=== PATIENT | female | born 1940 | race Caucasian/White ===

== ENCOUNTER → 2017-03-22 | Outpatient (CLI) | payer MEDICARE ==
--- NOTE | 2017-03-24 14:29 | MM ---
Reason for exam: screening (asymptomatic). Last mammogram was performed 1 year and 1 month ago. History: Patient is postmenopausal and has history of endometrial cancer at age 44. Took estrogen for 15 years beginning at age 44. Physical Findings: A clinical breast exam by your physician is recommended on an annual basis and results should be correlated with mammographic findings. MG 3D Screening Mammo W/Cad Bilateral CC and MLO view(s) were taken. Prior study comparison: February 22, 2016, bilateral MG 3d screening mammo w/cad. February 16, 2015, bilateral MG screening mammo w CAD. There are scattered fibroglandular densities. No significant changes when compared with prior studies. ASSESSMENT: Benign, BI-RAD 2 RECOMMENDATION: Routine screening mammogram of both breasts in 1 year.
== END | disposition home or self-care (01) ==
LOC: RADMAMWWP 10:17
PROVIDERS: ATTEND Internal Medicine
DX: Z12.31 Encounter for screening mammogram for malignant neoplasm of breast (principal)
CPT/HCPCS: 77063; G0202

== ENCOUNTER → 2017-03-22 | Outpatient (CLI) | payer MEDICARE ==
--- NOTE | 2017-03-22 21:42 | WWHP ---
DATE OF SERVICE: 03/22/[address] Gerard her primary care physician. CHIEF COMPLAINT: Patient is here for her routine gynecologic exam and mammogram. HPI: This is a 77-year-old, G2, P2 with an LMP of 1981. She is status post PRECIOUS for benign reasons. She had a later BSO which was also benign. The patient previously saw Dr. Portillo for her gynecologic care. It has been more than 2 years since her last exam. The patient is complaining of some vulvar pruritus. She is otherwise without complaints. PAST MEDICAL HISTORY: Chronic hypertension, asthma, cirrhosis, and osteopenia. Dr. Gerard is her primary care physician. MEDICATIONS: Torsemide 20 mg daily. Aspirin 81 mg daily. Proventil inhaler p.r.n. ALLERGIES: No known drug allergies. 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 This was done in 2013 and also include a splenectomy. Also history of cystocele and rectocele repairs in about 1999, colonoscopy x4 and her most recent was done in 2013. Past OB history: 2 vaginal deliveries. 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 She did use hormone replacement therapy for number of years, but discontinued this in 1999. She has no history of STDs. SOCIAL HISTORY: She denies tobacco, alcohol, and drug use. She has been since 1961 and is retired. FAMILY HISTORY: Grandmother had cancer, but she is uncertain of the type. Father had CHF and diabetes. Maternal grandfather had diabetes. REVIEW OF SYSTEMS: She has lost about 28 pounds over the last year. This was done and this has been done through [employer]. She denies respiratory or cardiac problems. GI: She has had problems with chronic constipation. She denies maltreatment or falling. : She denies any significant problems with urinary leakage. PHYSICAL EXAM: Blood pressure 170/70. Height 5 feet 0 inches. Weight 185 pounds. Temperature 96.0, pulse 79. This a well-developed, heavyset white female who is alert and oriented x3 in no acute distress. HEENT is within normal limits. NECK: Supple without mass or thyromegaly. CHEST AND LUNGS: Clear to auscultation. HEART: Regular rate and rhythm. Breasts are without mass or discharge. Axillary exam is negative for adenopathy. BACK: Negative for CVA tenderness. ABDOMEN: Soft, nontender, without palpable masses. PELVIC EXAM: External genitalia reveals mild generalized erythema that was slightly beyond to be labia majora. There are no focal lesions and no ulceration. There is also mild to moderate atrophy. Vagina reveals moderate to severe atrophy in the vagina somewhat shortened with depth of approximately 10 to 12 cm. There are no lesions and there is no evidence of prolapse. Bimanual exam is negative for mass or tenderness. Rectovaginal exam is negative for mass or tenderness and is negative for occult blood. EXTREMITIES: Nontender. IMPRESSION: 1. A 77-year-old menopausal female, status post total abdominal hysterectomy and later BSO for benign reasons. 2. Vulvar pruritus with nonspecific vulvitis. I doubt this is directly related to psoriasis, but it is possible. PLAN: 1. Pap smears have been discontinued. 2. Self-breast examination was discussed. 3. Mammogram was done today. 4. Kenalog 0.1% cream b.i.d. p.r.n. She was also instructed to avoid over washing and use smaller amounts of soap to this area. If she continues to have symptoms she will follow up with her stonehand who she sees for her psoriasis. 5. She does get flu shots in the fall. 6. Osteoporosis prevention was discussed. We will plan on repeating bone density testing next year. 7. She will follow up with Dr. Gerard regarding her elevated blood pressure. 8. She will return in one year. OUMAR
== END | disposition home or self-care (01) ==
LOC: WWCWWP 10:13
PROVIDERS: ATTEND Obstetrics & Gynecology
DX: Z53.9 Procedure and treatment not carried out, unspecified reason (principal)

== ENCOUNTER → 2018-08-04 | Outpatient (CLI) | payer MEDICARE ==
--- NOTE | 2018-08-05 10:38 | MR ---
EXAMINATION TYPE: MR brain and iac wo/w con DATE OF EXAM: 08/04/2018 COMPARISON: None HISTORY: tinnitus/ hearing loss, dizzy TECHNIQUE: Multiplanar, multisequence images of the brain and brainstem is performed without and with IV contras t, utilizing 8 mL intravenous Gadavist . FINDINGS: Diffusion weighted images demonstrate no evidence of a recent infarct or other diffusion ab normality. The ventricular system and cisternal spaces are normal in size and appearance. The brain volume is a ge appropriate. Midline structures demonstrate normal morphology. The craniocervical junction appears within normal limits. Post contrast images demonstrate no abnormal enhancement. The dural venous sinuses appear pa tent. Changes of chronic sinusitis are noted. There is no cerebellopontine angle mass. No pathologic enhancement nerve complex. Changes of mild jermaine ateral chronic mastoiditis. There is confluent and numerous focal areas of abnormal signal scattered throughout the white matter bilaterally. Findings are nonspecific but most typical remote microvascular ischemia. Hyperostosis of the calvarium noted. There is a tiny venous angioma incidentally noted within the left parietal lobe IMPRESSION: 1. Degenerative and nonspecific white matter changes most typical of remote microvascular ischemia. 2. No evidence of cerebellopontine angle mass or acoustic schwannoma. 3. Changes of chronic sinusitis. 4. Mild bilateral chronic mastoiditis greater on the left.
== END | disposition home or self-care (01) ==
LOC: RADMRIMAIN 13:10
PROVIDERS: ATTEND Otolaryngology
DX: H70.13 Chronic mastoiditis, bilateral (principal); R90.89 Other abnormal findings on diagnostic imaging of central nervous system; Z86.73 Personal history of transient ischemic attack (TIA), and cerebral infarction without residual deficits
CPT/HCPCS: 82565; 84520; 70553; 36415; A9581

== ENCOUNTER → 2018-08-14 | Outpatient (CLI) | payer MEDICARE ==
[2018-08-14 10:00] VITALS: BP 131/80; PULSE 72; TEMP 97.8; BMI 36.1
--- NOTE | 2018-08-14 10:39 | P.HPOB ---
History of Present Illness H&P Date: 08/14/18 Chief Complaint: The patient is here for her routine gynecologic exam and mammogram. This is a 78-year-old G2 PII within LMP of 1981. She is status post PRECIOUS and later BSO for benign reasons. The patient is without gynecologic complaints. 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 Review of Systems Weight has been stable. She denies respiratory or cardiac problems. SUNNY: occasional constipation. She denies maltreatment or problems with falling. : she denies any significant problems with urinary leakage, but occasionally has to get to the bathroom right away. Past Medical History Past Medical History: Asthma, Hypertension, Liver Disease (Cirrhosis), Skin Disorder (Psoriasis) Additional Past Medical History / Comment(s): Psoriasis and She is status post PRECIOUS and later BS oh. She did use HRT for several years and this was discontinued in 1999. History of Any Multi-Drug Resistant Organisms: None Reported Past Surgical History: Appendectomy, Hysterectomy (PRECIOUS 1981, BSO 1983) Additional Past Surgical History / Comment(s): Cystocele and rectocele repairs in 1999. 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 Colonoscopy 2013 (4th). Past Psychological History: No Psychological Hx Reported Smoking Status: Never smoker Past Alcohol Use History: Rare (2 per year) Past Drug Use History: None Reported Additional History: She has been since 1961. Her has dementia. She is retired. - Past Family History Father Family Medical History: Congestive Heart Failure (CHF), Diabetes Mellitus Mother Family Medical History: No Reported History Additional Family Medical History / Comment(s): Maternal grandfather had diabetes. Medications and Allergies Home Medications Medication Instructions Recorded Confirmed Type Albuterol Sulfate [Proventil Hfa] 1 - 2 puff INHALATION DAILY PRN 08/22/1408/14 History Allopurinol 300 mg PO QAM 08/22/14 08/14/18 History Aspirin 81 mg PO DAILY 08/22/14 08/14/18 History Fluticasone/Salmeterol [Advair Hfa 2 puff INHALATION HS PRN 08/22/14 08/14/18 History 115-21 Mcg Inhaler] Torsemide 20 mg PO QAM 08/22/14 08/14/18 History Allergies Allergy/AdvReac Type Severity Reaction Status Date / Time adhesive Allergy Rash/Hives Verified 08/14/18 09:52 atorvastatin calcium Allergy Nausea & Verified 08/14/18 09:52 [From Lipitor] Vomiting & Diarrhea Exam Vital Signs Temp Pulse BP 08/14/18 09:55 97.8 F 72 131/80 Intake and Output 08/13/18 08/14/18 08/14/18 22:59 06:59 14:59 Other: Weight 83.915 kg Height 5'0", BMI 36.1. This is a well-developed well-nourished white female who is alert and oriented times 3 in no acute distress. HEENT: Within normal limits. NECK: Supple without mass or thyromegaly. CHEST AND LUNGS: Clear to auscultation. HEART: Regular rate and rhythm. BREASTS: Are without mass or discharge. AXILLARY EXAM: Negative for adenopathy. BACK: Negative for CVA tenderness. ABDOMEN: Soft, nontender, without palpable masses. PELVIC EXAM: there is an area of psoriasis on the right minds pubis measuring approximately 3 cm in diameter. External genitalia appears normal with moderate atrophy. Vagina appears normal with moderate atrophy. There is no evidence of prolapse. Bimanual examination is negative for mass or tenderness. RECTAL EXAM: Rectovaginal exam is negative for mass or tenderness and is negative for occult blood. EXTREMITIES: Nontender. IMPRESSION: 1. 78-year-old menopausal female status post PRECIOUS and later BSO for benign reasons with normal gynecologic exam. 2. History of osteopenia. PLAN: 1. Pap smears have been discontinued. 2. Self breast awareness was discussed with the patient. 3. Screening mammogram will be done today. 4. Osteoporosis prevention was discussed. Bone density screening will be done today. 5. She has received her flu shot recently. 6. She will return in one year.
--- NOTE | 2018-08-14 12:10 | BD ---
EXAMINATION TYPE: Axial Bone Density DATE OF EXAM: 08/14/2018 COMPARISON: 12.03.2013 CLINICAL HISTORY: 78 YR OLD FEMALE....ICD-10 CODE: Z78.0 POST MENOPAUSE W/O HRT Height: 59.2 Weight: 184 FRAX RISK QUESTIONS: Glucocorticoids (More than 3mos): YES (Ex: prednisone, prednisolone, methylprednisolone, dexamethasone, and hydrocortisone). HIStory of Fracture in Adulthood: YES Secondary Osteoporosis: YES 3. Menopause before 45: YES RISK FACTORS HISTORY OF: Diet low in dairy products/other sources of calcium: YES...NO MILK Postmenopausal woman: YES, TOTAL HYST AT AGE 44 MEDICATIONS: Prednisone or other steroids: ASTHMA INHALERS, PRN How Long: ON AND OFF FOR YRS... Additional Medications: ANTIVERT,REFLUX MEDS,PAIN MEDS NSAIDS, Additional History: ARTHRITIS, VERTIGO,ASTHMA EXAM MEASUREMENTS: Bone mineral densitometry was performed using the [employer] System. Bone mineral density as measured about the Lumbar spine is: ----- L1-L4(G/cm2): 1.415 T Score Values are as follows: ----- L1: -0.4 ----- L2: 1.7 ----- L3: 3.4 ----- L4: 2.6 ----- L1-L4: 2.0 Bone mineral density has: Increased 16.2% since study of: 12.03.2013 Bone mineral density about the R hip (g/cm2): 0.763 Bone mineral density about the L hip (g/cm2): 0.789 T Score values are as follows: -----R Neck: -1.9 -----L Neck: -2.4 -----R Total: -1.9 -----L Total: -1.7 Bone mineral density has: Decreased -13.4% since study of: 12.03.2013 FRAX%s: THERE IS A 15.7% CHANCE FOR A MAJOR OSTEOPOROTIC FX AND A 4.8% OF HIP FX....PROBABILITY OF FX IN 10 YRS TIME IMPRESSION: Osteopenia (T Score between -2.5 and -1). There is slightly increased risk of fracture and the patient may be considered for treatment. Re-Screen 2-5 years. NOTE: T-SCORE=SD OF THE YOUNG ADULT MEAN.
--- NOTE | 2018-08-16 09:31 | MM ---
Reason for exam: screening (asymptomatic). Last mammogram was performed 1 year and 5 months ago. History: Patient is postmenopausal and has history of endometrial cancer at age 44. Took estrogen for 15 years beginning at age 44. Physical Findings: A clinical breast exam by your physician is recommended on an annual basis and results should be correlated with mammographic findings. MG 3D Screening Mammo W/Cad Bilateral CC and MLO view(s) were taken. Prior study comparison: March 22, 2017, bilateral MG 3d screening mammo w/cad. February 22, 2016, bilateral MG 3d screening mammo w/cad. There are scattered fibroglandular densities. Focal asymmetry in the left breast, stable. No significant changes when compared with prior studies. ASSESSMENT: Benign, BI-RAD 2 RECOMMENDATION: Routine screening mammogram of both breasts in 1 year.
== END | disposition home or self-care (01) ==
LOC: WWCWWP 09:18
PROVIDERS: ATTEND Obstetrics & Gynecology
DX: Z12.31 Encounter for screening mammogram for malignant neoplasm of breast (principal); M85.80 Other specified disorders of bone density and structure, unspecified site; Z78.0 Asymptomatic menopausal state
CPT/HCPCS: 77063; 77067; 77080

== ENCOUNTER → 2021-07-28 | Outpatient (CLI) | payer MEDICARE ==
[~2021-07-28] MED LIST: DOBUTamine DRIP for NUC MED 500 MG in DEXTROSE/WATER 1 250ML.BAG IV PRN
--- NOTE | 2021-07-28 14:00 | ECHOS ---
STRESS ECHOCARDIOGRAM INDICATIONS: Chest pain. BASELINE HEART RATE: 87 BASELINE BLOOD PRESSURE: 120/58 MAXIMUM HEART RATE: 128 MAXIMUM BLOOD PRESSURE: 180/38 85% MPHR: 120 100% MPHR: 141 METS: NA MAXIMUM STAGE REACHED: 2 TOTAL EXERCISE TIME: 6:35 infusion time CLINICAL INFORMATION: STRESS DATA: Pretesting physical examination showed a heart rate of 87, pressure 120/85 mmHg. Baseline EKG showed sinus mechanism. Dobutamine infusion at a dose of 10 mcg/kg per minute was started and increased to 20 mcg/kg per minute per protocol. Max heart rate was 128, which is about 91% of maximum predicted heart rate. Maximum blood pressure was 180/38 mmHg. Clinically the patient did not have any symptoms. The EKG did not show any significant ST or T-wave abnormalities concerning for ischemia. Analysis and echocardiogram images from parasternal long axis view, parasternal short axis view, apical 4-chamber and apical 2-chamber views were obtained as the baseline images, at low-dose dobutamine infusion, at the peak of the heart rate as well as on recovery. The echocardiogram images showed overall good augmentation in the left ventricular systolic function without any evidence of wall motion abnormalities concerning for ischemia. CONCLUSION: 1. Normal EKG in response to dobutamine. 2. Normal echocardiogram in response to dobutamine. MMODL / IJN: [id number] /
== END | disposition home or self-care (01) ==
LOC: RADNMMAIN 09:49
PROVIDERS: ATTEND Internal Medicine
DX: R07.9 Chest pain, unspecified (principal)
CPT/HCPCS: 93351

== ENCOUNTER → 2022-02-01 | Outpatient (CLI) | payer MEDICARE ==
--- NOTE | 2022-02-02 06:27 | MR ---
EXAMINATION TYPE: MR knee RT wo con DATE OF EXAM: 02/01/2022 COMPARISON: None. HISTORY: Rt knee pain, swelling, internal derangement TECHNIQUE: Multiplanar, multisequence imaging of the right knee is performed without IV contrast. FINDINGS: MEDIAL MENISCUS: Truncation posterior horn with abnormal signal consistent with full-thickness tear. LATERAL MENISCUS: Lateral extrusion lateral meniscus on coronal images Marked truncated appearance an terior horn with abnormal signal extending towards central body. CRUCIATE LIGAMENTS: The posterior cruciate ligament is intact and unremarkable. Anterior cruciate lig ament appears thinned but intact sagittal image 18. COLLATERAL LIGAMENTS: The medial collateral ligament and lateral collateral ligament complex are inta ct. Mild fluid signal surrounds the medial collateral ligament. EXTENSOR MECHANISM: Visualized quadriceps and patellar tendons are intact. EFFUSION: No significant suprapatellar joint effusion. POPLITEAL CYST: There is small size popliteal/iqbal cyst sagittal image 13. TRICOMPARTMENT SPACES: Moderate to severe tricompartment spurring and joint space loss. CARTILAGE: Significant chondromalacia patella with full-thickness cartilaginous loss along the medical imaging technologist ior patellar pole. Marked cartilaginous loss including full-thickness defects lateral tibiofemoral co mpartment. BONE MARROW SIGNAL: Areas of reactive diminished T1 and increased T2 signal seen at levels of full-th ickness cartilaginous lateral tibial femoral compartment and full-thickness chondromalacia patella al august the posterior aspect of the patellar pole. OTHER: Posterior fabella suspected sagittal image 16. IMPRESSION: 1. Fairly advanced tricompartment degenerative changes as detailed above. 2. Full-thickness tear anterior horn lateral meniscus extending into central body. 3. Full-thickness oblique tear posterior horn medial meniscus. 4. Small popliteal cyst. 5. Mild MCL sprain injury.
== END | disposition home or self-care (01) ==
LOC: RADMRIMAIN 15:18
PROVIDERS: ATTEND Internal Medicine Rheumatology
DX: S83.411A Sprain of medial collateral ligament of right knee, initial encounter (principal); S83.281A Other tear of lateral meniscus, current injury, right knee, initial encounter; M71.21 Synovial cyst of popliteal space [Baker], right knee; X58.XXXA Exposure to other specified factors, initial encounter

== ENCOUNTER → 2022-05-25 | Outpatient (CLI) | payer MEDICARE ==
[2022-05-25 10:34] VITALS: BP 144/89; PULSE 98; RESP 18; TEMP 98.4
--- NOTE | 2022-05-25 11:45 | P.HPOB ---
History of Present Illness H&P Date: 05/25/22 Chief Complaint: The patient is here for her routine gynecologic exam. This is an 82-year-old with an LMP of 1981. She is status post PRECIOUS and later BSO for benign reasons. The patient is without gynecologic complaints. Review of Systems The patient has lost about 9 pounds over the past 4 years. She denies respiratory, cardiac, or GI problems. Past Medical History Past Medical History: Asthma, Hypertension, Liver Disease, Skin Disorder Additional Past Medical History / Comment(s): Psoriasis. 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 History of Any Multi-Drug Resistant Organisms: None Reported Past Surgical History: Appendectomy, Hysterectomy Additional Past Surgical History / Comment(s): PRECIOUS 1981, BSO in 1983. Cystocele and rectocele repairs in 1999. 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 Colonoscopy 2014 (4th). Past Psychological History: No Psychological Hx Reported Smoking Status: Never smoker Past Alcohol Use History: Rare (0-1 per year) Past Drug Use History: None Reported Additional History: She has been a since 2019. She is retired. She is not sexually active. - Past Family History Mother Additional Family Medical History / Comment(s): FROM A "BLOOD CLOT" Father Family Medical History: Congestive Heart Failure (CHF), Diabetes Mellitus Medications and Allergies Home Medications Medication Instructions Recorded Confirmed Type Albuterol Sulfate [Proventil Hfa] 1 - 2 puff INHALATION DAILY PRN 08/22/14 05/25/22 History Aspirin 81 mg PO DAILY 08/22/14 05/25/22 History Torsemide 20 mg PO QAM 08/22/14 05/25/22 History allopurinoL [Allopurinol] 300 mg PO QAM 08/22/14 05/25/22 History Triamcinolone 0.1% Lotion [Kenalog 1 applic TOPICAL BID PRN #30 g 08/22/18 05/25/22 Rx 0.1% Lotion] Allergies Allergy/AdvReac Type Severity Reaction Status Date / Time adhesive Allergy Rash/Hives Verified 05/25/22 10:28 atorvastatin calcium Allergy Nausea & Verified 05/25/22 10:28 [From Lipitor] Vomiting & Diarrhea Exam Vital Signs Temp Pulse Resp BP Pulse Ox 05/25/22 10:29 98.4 F 98 18 144/89 97 Intake and Output 05/24/22 05/25/22 05/25/22 22:59 06:59 14:59 Other: Weight 79.832 kg Height 4 feet 11 inches, weight 176 pounds, BMI 35.5. This is a well-developed well-nourished white female who is alert and oriented times 3 in no acute distress. HEENT: Within normal limits. NECK: Supple without mass or thyromegaly. CHEST AND LUNGS: Clear to auscultation. HEART: Regular rate and rhythm. BREASTS: Are without mass or discharge. AXILLARY EXAM: Negative for adenopathy. BACK: Negative for CVA tenderness. ABDOMEN: Soft, nontender, without palpable masses. PELVIC EXAM: External genitalia appears normal with moderate atrophy. Vagina appears normal with moderate atrophy. The vagina is slightly shortened consistent with her previous anterior and posterior repairs. There is no evidence of prolapse. Bimanual examination is negative for mass or tenderness. RECTAL EXAM: Rectovaginal exam is negative for mass or tenderness and is negative for occult blood. EXTREMITIES: Nontender. IMPRESSION: 1. 82-year-old menopausal female status post PRECIOUS and later BSO for benign reasons, with normal gynecologic exam. 2. Osteopenia. 3. Mildly elevated blood pressure. PLAN: 1. Pap smears have been discontinued. 2. Self breast awareness was discussed with the patient. We have also discussed symptoms associated with inflammatory breast cancer. 3. Screening mammogram was done on 03/18/2022 and was benign. She will repeat this after 1 year. 4. Osteoporosis prevention was discussed. I have stressed the importance of adequate calcium, vitamin D and regular exercise. Recommended amounts of calcium and vitamin D were also discussed. Bone density testing was performed today. 5. She has completed her Covid vaccination series and did receive a booster. 7. I have recommended that she check her own blood pressure on a regular basis and follow-up with her PCP for blood pressure elevations. 7. The patient was advised to return in 1-2 years for her well woman examination.
--- NOTE | 2022-05-25 15:14 | BD ---
EXAMINATION TYPE: Axial Bone Density DATE OF EXAM: 05/25/2022 COMPARISON: Prior DEXA scan report 08/14/2018 CLINICAL HISTORY: 82 years year old Female. ICD-10 CODE: Z78.0 POST MENOPAUSAL Height: 4 FT 11 IN Weight: 175 FRAX RISK QUESTIONS: Alcohol (3 or more units per day): NO Family History (Parent hip fracture): NO Glucocorticoids (More than 3mos): NO (Ex: prednisone, prednisolone, methylprednisolone, dexamethasone, and hydrocortisone). History of Fracture in Adulthood: YES Secondary Osteoporosis: 1. Type 1 Diabetes: NO 2. Hyperthyroidism: NO 3. Menopause before 45: YES 4. Malnutrition: NO 5. Chronic liver disease: NO Rheumatoid Arthritis: NO Current Tobacco Use: NO RISK FACTORS HISTORY OF: Surgery to Spine/Hip(right/left)/Wrist (right/left): NO Family History of Osteoporosis: NO Active: YES Diet low in dairy products/other sources of calcium: NO Postmenopausal woman: YES Take estrogen and/or progesterone medications: NO LONGER Lost more than 2 inches in height since high school: YES Frequent falls: NO Poor Health: GOOD Hyperparathyroidism: NO Adrenal Insufficiency: NO MEDICATIONS: Additional Medications: ALLOPURINOL,ZYLOPRIN, TORSEMIDE, DEMADEX, PREVACID, ASPIRIN, PRO AIR NEEDE D, MULTI, VIT D3 Additional History: EXAM MEASUREMENTS: Bone mineral densitometry was performed using the [employer] System. Bone mineral density as measured about the Lumbar spine is: ----- L1-L4(G/cm2): 1.392 T Score Values are as follows: ----- L1: 0.0 ----- L2: 2.4 ----- L3: 3.5 ----- L4: 1.7 ----- L1-L4: 1.8 Bone mineral density about the R hip (g/cm2): 0.735 Bone mineral density about the L hip (g/cm2): 0.719 T Score values are as follows: -----R Neck: -2.2 -----L Neck: -2.3 -----R Total: -2.2 -----L Total: -1.9 FRAX%s: The graph provided illustrates a 23.3 % chance for a major osteoporotic fx and a 6.7 % chance for the hips probability for fx in 10 years time. IMPRESSION: Osteopenia (T Score between -2.5 and -1). There is slightly increased risk of fracture and the patient may be considered for treatment. Re-Screen 2-5 years. NOTE: T-SCORE=SD OF THE YOUNG ADULT MEAN.
--- NOTE | 2022-05-25 15:44 | P.PN ---
Progress Note - Text Progress Note Date: 05/25/22 OUTPATIENT FOLLOW-UP NOTE TEST(S)/RESULTS: Bone density test done on 05/25/2022 shows stable osteopenia. METHOD OF NOTIFICATION: The patient was notified by phone. PATIENT COMMENTS: DIAGNOSIS: Stable osteopenia. DISCUSSION: I have stressed the importance of getting adequate calcium, vitamin D, and regular exercise. PLAN: He bone density test in 2 years.
== END | disposition home or self-care (01) ==
LOC: RADBDWWP 09:15
PROVIDERS: ATTEND Obstetrics & Gynecology
DX: Z01.419 Encounter for gynecological examination (general) (routine) without abnormal findings (principal); M85.89 Other specified disorders of bone density and structure, multiple sites
CPT/HCPCS: 77080

== ENCOUNTER 2023-06-06 15:45 | Inpatient (IN) | payer MEDICARE ==
[2023-06-06 17:55] LABS: Basophils % (A) 0 %; Eosinophils # (A) 0.2 k/uL (0-0.7); Eosinophils % (A) 2 %; HCT 43.7 % (34.0-46.0); HGB 14.3 gm/dL (11.4-16.0); Lymphocytes # (A) 2.7 k/uL (1.0-4.8); Lymphocytes % (A) 29 %; MCH 32.9 pg (25.0-35.0); MCHC 32.8 g/dL (31.0-37.0); MCV 100.4 fL (80.0-100.0); Macrocytosis Slight; Mean Platelet Volume 9.4; Monocytes # (A) 0.7 k/uL (0-1.0); Monocytes % (A) 7 %; Neutrophils # (A) 5.6 k/uL (1.3-7.7); Neutrophils % (A) 59 %; Platelet Count 236 k/uL (150-450); RBC 4.35 m/uL (3.80-5.40); RDW 13.5 % (11.5-15.5); WBC 9.4 k/uL (3.8-10.6)
[2023-06-06 18:06] LABS: ALT 21 U/L (4-34); AST 60 U/L (14-36); African American GFR (CKD) 70 (>60 ml/min/1.73 sqM); Albumin 4.2 g/dL (3.5-5.0); Alkaline Phosphatase 112 U/L (38-126); Anion Gap 7 mmol/L; Blood Urea Nitrogen 23 mg/dL (7-17); Calcium 9.4 mg/dL (8.4-10.2); Carbon Dioxide 33 mmol/L (22-30); Chloride 101 mmol/L (98-107); Glucose 140 mg/dL (74-99); Non-African American GFR(CKD) 60 (>60 ml/min/1.73 sqM); Sodium 141 mmol/L (137-145); Total Protein 7.4 g/dL (6.3-8.2)
--- NOTE | 2023-06-06 18:09 | ED ---
General Adult HPI - General Chief complaint: Chest Pain Stated complaint: recheck Time Seen by Provider: 06/06/23 16:45 Source: patient, RN notes reviewed, old records reviewed Mode of arrival: ambulatory Limitations: no limitations - History of Present Illness Initial comments: This is an 83-year-old female who presents emergency Department complaining that she's had intermittent chest pain for the last week at least but probably more likely 2 weeks. Patient states the pain comes and lasts for anywhere between 30 minutes to an hour. Patient states she feels as though it radiates to her back. Patient states she often drinks some water and feels like it makes it go away. Patient denies any shortness of breath or difficulty breathing. Patient denies any recent fever chills or cough. Patient denies any lightheadedness or dizziness. Patient denies any abdominal pain. Denies any nausea vomiting or diarrhea. Patient denies any swelling to the legs or calf tenderness. - Related Data Home Medications Medication Instructions Recorded Confirmed Aspirin 81 mg PO DAILY 08/22/14 06/06/23 Torsemide 20 mg PO DAILY 08/22/14 06/06/23 allopurinoL [Allopurinol] 300 mg PO DAILY 08/22/14 06/06/23 Albuterol Sulfate [Albuterol 2 puff PO RT-Q6H PRN 06/06/23 06/06/23 Sulfate Hfa] Cholecalciferol [Vitamin D3 (25 25 mcg PO DAILY 06/06/23 06/06/23 Mcg = 1000 Iu)] Cyanocobalamin (Vitamin B-12) 1,000 mcg PO DAILY 06/06/23 06/06/23 [Vitamin B-12] Lansoprazole [Prevacid] 30 mg PO DAILY 06/06/23 06/06/23 Multivitamins, Thera [Multivitamin 1 tab PO DAILY 06/06/23 06/06/23 (formulary)] Allergies Allergy/AdvReac Type Severity Reaction Status Date / Time adhesive Allergy Rash/Hives Verified 06/06/23 17:42 atorvastatin calcium Allergy Nausea & Verified 06/06/23 17:42 [From Lipitor] Vomiting & Diarrhea Review of Systems ROS Statement: Those systems with pertinent positive or pertinent negative responses have been documented in the HPI. ROS Other: All systems not noted in ROS Statement are negative. Past Medical History Past Medical History: Asthma, Hypertension, Liver Disease, Skin Disorder Additional Past Medical History / Comment(s): Psoriasis. 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 History of Any Multi-Drug Resistant Organisms: None Reported Past Surgical History: Appendectomy, Hysterectomy Additional Past Surgical History / Comment(s): PRECIOUS 1981, BSO in 1983. Cystocele and rectocele repairs in 1999. 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 Colonoscopy 2014 (4th). Past Psychological History: No Psychological Hx Reported Smoking Status: Never smoker Past Alcohol Use History: Rare Past Drug Use History: None Reported - Past Family History Mother Additional Family Medical History / Comment(s): FROM A "BLOOD CLOT" Father Family Medical History: Congestive Heart Failure (CHF), Diabetes Mellitus General Exam - General Exam Comments Initial Comments: GENERAL: Patient is well-developed and well-nourished. Patient is nontoxic and well- hydrated and is in no acute distress. ENT: Neck is soft and supple. No significant lymphadenopathy is noted. Oropharynx is clear. Moist mucous membranes. Neck has full range of motion without eliciting any pain. EYES: The sclera were anicteric and conjunctiva were pink and moist. Extraocular movements were intact and pupils were equal round and reactive to light. Eyelids were unremarkable. PULMONARY: Unlabored respirations. Good breath sounds bilaterally. No audible rales rhonchi or wheezing was noted. CARDIOVASCULAR: There is a regular rate and rhythm without any murmurs gallops or rubs. ABDOMEN: Soft and nontender with normal bowel sounds. SKIN: Skin is clear with no lesions or rashes and otherwise unremarkable. NEUROLOGIC: Patient is alert and oriented x3. Cranial nerves II through XII are grossly intact. Motor and sensory are also intact. Normal speech, volume and content. Symmetrical smile. MUSCULOSKELETAL: Normal extremities with adequate strength and full range of motion. LYMPHATICS: No significant lymphadenopathy is noted PSYCHIATRIC: Normal psychiatric evaluation. Limitations: no limitations Course Vital Signs 06/06/23 06/06/23 06/06/23 16:01 16:39 16:42 Temperature 97.8 F Pulse Rate 101 H 82 Pulse Rate [ 99 [employer] [employer] ] Respiratory 18 18 Rate Blood Pressure 124/75 114/74 O2 Sat by Pulse 94 L 96 Oximetry 06/06/23 06/06/23 06/06/23 17:00 17:30 18:00 Temperature Pulse Rate 80 79 78 Pulse Rate [ [employer] [employer] ] Respiratory 16 18 18 Rate Blood Pressure 115/95 117/63 118/69 O2 Sat by Pulse 91 L 94 L 96 Oximetry 06/06/23 18:30 Temperature Pulse Rate 82 Pulse Rate [ [employer] ] Respiratory 16 Rate Blood Pressure 120/78 O2 Sat by Pulse 94 L Oximetry Medical Decision Making - Medical Decision Making I interpreted this EKG. EKG shows a sinus tachycardia at 100 bpm IA interval 175 QRS is 88 QT interval 320 QTC is 377. Patient's EKG shows no ST segment elevation or depression. Was pt. sent in by a medical professional or institution (, PA, NAPHTHOL SOAPING MACHINE OPERATOR, urgent care, hospital, or [place] health [facility] facility...) When possible be specific @ -She was sent in by her primary medical care doctor. Did you speak to anyone other than the patient for history (EMS, parent, family, police, friend...)? What history was obtained from this source @ -[No] Did you review nursing and triage notes (agree or disagree)? Why? @ -[I reviewed and agree with nursing and triage notes] Were old charts reviewed (outside hosp., previous admission, EMS record, old EKG, old radiological studies, urgent care reports/EKG's, [place] [facility] facility records)? Report findings @ -I reviewed prior notes prior EKGs and prior lab work on this patient Differential Diagnosis (chest pain, altered mental status, abdominal pain women, abdominal pain men, vaginal bleeding, weakness, fever, dyspnea, syncope, headache, dizziness, GI bleed, back pain, seizure, CVA, palpatations, mental health, musculoskeletal)? @ -Differential Chest Pain: Stable Angina, Unstable Angina, STEMI, NSTEMI Aortic Dissection, Pneumothorax, Musculoskeletal, Esophageal Spasm GERD, Cholecystitis, Pancreatitis, Zoster, this is not meant to be an all-inclusive list. EKG interpreted by me (3pts min.). @ -[As above] X-rays interpreted by me (1pt min.). @ -Chest x-ray showed no acute abnormality CT interpreted by me (1pt min.). @ -[None done] U/S interpreted by me (1pt. min.). @ -[None done] What testing was considered but not performed or refused? (CT, X-rays, U/S, labs)? Why? @ -[None] What meds were considered but not given or refused? Why? @ -[None] Did you discuss the management of the patient with other professionals (professionals i.e. , PA, NAPHTHOL SOAPING MACHINE OPERATOR, lab, RT, psych nurse, social media coordinator, plowing gardens, teacher, staff weapons officer, case packer)? Give summary @ -I spoke with Dr. Barrett he agreed to admit the patient admitted the patient I wrote admitting orders Was smoking cessation discussed for >3mins.? @ -[No] Was critical care preformed (if so, how long)? @ -35 minutes Were there social determinants of health that impacted care today? How? (Homelessness, low income, unemployed, alcoholism, drug addiction, transpor tation, low edu. Level, literacy, decrease access to med. care, fpc, rehab)? @ -[No] Was there de-escalation of care discussed even if they declined (Discuss DNR or withdrawal of care, Hospice)? DNR status @ -[No] What co-morbidities impacted this encounter? (DM, HTN, Smoking, COPD, CAD, Cancer, CVA, ARF, Chemo, Hep., AIDS, mental health diagnosis, sleep apnea, morbid obesity)? @ -[None] Was patient admitted / discharged? Hospital course, mention meds given and route, prescriptions, significant lab abnormalities, going to OR and other pertinent info. @ -Patient's troponin was elevated this was enough to admit the patient however the patient's d-dimer was also elevated so the patient was taken to CAT scan to rule out PE they CAT scan showed no pulmonary embolism. Patient was comfortable throughout her ED stay. I started the patient on heparin I spoke w jud Barrett he agreed to admit the patient admitted the patient wrote admitting orders I consulted cardiology Undiagnosed new problem with uncertain prognosis? @ -[No] Drug Therapy requiring intensive monitoring for toxicity (Heparin, Nitro, Insulin, Cardizem)? @ -[No] Were any procedures done? @ -[No] Diagnosis/symptom? @ -Non-STEMI Acute, or Chronic, or Acute on Chronic? @ -Acute Uncomplicated (without systemic symptoms) or Complicated (systemic symptoms)? @ -Complicated Side effects of treatment? @ -[No] Exacerbation, Progression, or Severe Exacerbation? @ -[No] Poses a threat to life or bodily function? How? (Chest pain, USA, DC, pneumonia, PE, COPD, DKA, ARF, appy, cholecystitis, CVA, Diverticulitis, Homicidal, Suicidal, threat to staff... and all critical care pts) @ -Yes this could lead to poor perfusion and end organ dysfunction - Lab Data Result diagrams: 06/06/23 17:30 06/06/23 17:30 Lab Results 06/06/23 06/06/23 06/06/23 Range/Units 17:30 17:30 17:30 WBC 9.4 (3.8-10.6) k/uL RBC 4.35 (3.80-5.40) m/uL Hgb 14.3 (11.4-16.0) gm/dL Hct 43.7 (34.0-46.0) % MCV 100.4 H (80.0-100.0) fL MCH 32.9 (25.0-35.0) pg MCHC 32.8 (31.0-37.0) g/dL RDW 13.5 (11.5-15.5) % Plt Count 236 (150-450) k/uL MPV 9.4 Neutrophils % 59 % Lymphocytes % 29 % Monocytes % 7 % Eosinophils % 2 % Basophils % 0 % Neutrophils # 5.6 (1.3-7.7) k/uL Lymphocytes # 2.7 (1.0-4.8) k/uL Monocytes # 0.7 (0-1.0) k/uL Eosinophils # 0.2 (0-0.7) k/uL Basophils # 0.0 (0-0.2) k/uL Macrocytosis Slight PT 10.2 (9.0-12.0) sec INR 1.0 (<1.2) APTT 22.1 (22.0-30.0) sec D-Dimer 1.80 H (<0.60) mg/L FEU Sodium 141 (137-145) mmol/L Potassium 3.6 (3.5-5.1) mmol/L Chloride 101 (98-107) mmol/L Carbon Dioxide 33 H (22-30) mmol/L Anion Gap 7 mmol/L BUN 23 H (7-17) mg/dL Creatinine 0.90 (0.52-1.04) mg/dL Est GFR (CKD-EPI)AfAm 70 (>60 ml/min/1.73 sqM) Est GFR (CKD-EPI)NonAf 60 (>60 ml/min/1.73 sqM) Glucose 140 H (74-99) mg/dL Calcium 9.4 (8.4-10.2) mg/dL Magnesium 2.0 (1.6-2.3) mg/dL Total Bilirubin 1.0 (0.2-1.3) mg/dL AST 60 H (14-36) U/L ALT 21 (4-34) U/L Alkaline Phosphatase 112 (38-126) U/L Troponin I (0.000-0.034) ng/mL Total Protein 7.4 (6.3-8.2) g/dL Albumin 4.2 (3.5-5.0) g/dL 06/06/23 Range/Units 17:30 WBC (3.8-10.6) k/uL RBC (3.80-5.40) m/uL Hgb (11.4-16.0) gm/dL Hct (34.0-46.0) % MCV (80.0-100.0) fL MCH (25.0-35.0) pg MCHC (31.0-37.0) g/dL RDW (11.5-15.5) % Plt Count (150-450) k/uL MPV Neutrophils % % Lymphocytes % % Monocytes % % Eosinophils % % Basophils % % Neutrophils # (1.3-7.7) k/uL Lymphocytes # (1.0-4.8) k/uL Monocytes # (0-1.0) k/uL Eosinophils # (0-0.7) k/uL Basophils # (0-0.2) k/uL Macrocytosis PT (9.0-12.0) sec INR (<1.2) APTT (22.0-30.0) sec D-Dimer (<0.60) mg/L FEU Sodium (137-145) mmol/L Potassium (3.5-5.1) mmol/L Chloride (98-107) mmol/L Carbon Dioxide (22-30) mmol/L Anion Gap mmol/L BUN (7-17) mg/dL Creatinine (0.52-1.04) mg/dL Est GFR (CKD-EPI)AfAm (>60 ml/min/1.73 sqM) Est GFR (CKD-EPI)NonAf (>60 ml/min/1.73 sqM) Glucose (74-99) mg/dL Calcium (8.4-10.2) mg/dL Magnesium (1.6-2.3) mg/dL Total Bilirubin (0.2-1.3) mg/dL AST (14-36) U/L ALT (4-34) U/L Alkaline Phosphatase (38-126) U/L Troponin I 3.100 H* (0.000-0.034) ng/mL Total Protein (6.3-8.2) g/dL Albumin (3.5-5.0) g/dL Critical Care Time Critical Care Time: Yes Total Critical Care Time: 35 Disposition Clinical Impression: Acute non-ST elevation myocardial infarction (NSTEMI) Disposition: ADMITTED IP TO THIS HOSP Referrals: Juan Gerard MD [Primary Care Provider] - 1-2 days Time of Disposition: 20:49
[2023-06-06 18:16] LABS: Potassium 3.6 mmol/L (3.5-5.1)
--- NOTE | 2023-06-06 18:17 | XR ---
EXAMINATION TYPE: XR chest 2V DATE OF EXAM: 06/06/2023 COMPARISON: 02/11/2014 HISTORY: Shortness of breath TECHNIQUE: Frontal and lateral views of the chest are obtained. FINDINGS: Scattered senescent parenchymal changes noted. Hyperinflation compatible with COPD. No evidence for infiltrate. No evidence for atelectasis. Heart size is stable. Mediastinal structures are stable and grossly unremarkable. No evidence for hilar prominence. Degenerative changes dorsal spine. IMPRESSION: 1. No evidence for acute pulmonary disease.
[2023-06-06 18:22] LABS: Partial Thromboplastin Time 22.1 sec (22.0-30.0); Prothrombin Time 10.2 sec (9.0-12.0)
--- NOTE | 2023-06-06 19:42 | CT ---
EXAMINATION TYPE: CT chest angio for PE DATE OF EXAM: 06/06/2023 COMPARISON: None HISTORY: elevated d-dimer CT DLP: 375.6 mGycm CONTRAST: CT chest with contrast and 3D reconstruction with MIP imaging is performed with IV Contrast, patient injected with 80 mL of Isovue 370. Contrast-enhanced CT of the chest was performed through the course of the pulmonary arteries with alex g and mediastinal window settings submitted. 3D reconstruction with MIP imaging was also performed. PULMONARY ARTERIES: The pulmonary arteries and their major tributaries are patent. I do not see jaron dence for sizable filling defect to suggest pulmonary embolic process. Prominence of the pulmonary ar craig suggests pulmonary arterial hypertension. LUNGS: The lungs are clear and free of infiltrate. Mild basilar dependent atelectasis. No pulmonary n odule or mass is detected. No pleural effusion. MEDIASTINUM: Thoracic aorta is of normal caliber,. The heart is mildly enlarged. No evidence for me diastinal mass. No mediastinal lymph nodes greater than 1cm. HILAR STRUCTURES: No evidence for mass. No hilar lymph nodes greater than 1 cm. UPPER ABDOMEN: No significant abnormality is seen. IMPRESSION: 1. No evidence for Pulmonary embolism at this time.
[2023-06-06] MEDS ORDERED: NITROGLYCERIN SL TABS 0.4 MG TAB SUBLINGUAL PRN (20:49)
[2023-06-06] MEDS ORDERED: ASPIRIN 81 MG PO STA (20:49)
[2023-06-06] MEDS ORDERED: HEPARIN SODIUM 1,000 UN/ML (10ML VL) IV ONE (20:51)
[2023-06-06] MEDS: HEPARIN SOD,PORK IN 0.45% NACL 25,000 UNIT in 0.45% NACL 1 250ML.BAG IV SCH (21:01)
[2023-06-07] MEDS: NITROGLYCERIN OINT 1 INCH/GM PACKET TOPICAL SCH ×4 (01:32→17:35)
[2023-06-07 07:09] LABS: Prothrombin Time 10.6 sec (9.0-12.0)
[2023-06-07] MEDS ORDERED: ASPIRIN 325 MG TAB PO SCH (09:00)
[2023-06-07] MEDS ORDERED: ALBUTEROL NEBULIZED 2.5 MG/3 ML INHALATION PRN (09:50)
[2023-06-07 10:41] LABS: Chol/HDL Ratio 3.48 Ratio; LDL Cholesterol,Calculated 105.7 mg/dL (0.0-131.0); VLDL Calculation 16.12 mg/dL (5.00-40.00)
[2023-06-07] MEDS ORDERED: NITROGLYCERIN SL TABS 0.4 MG TAB SUBLINGUAL PRN (11:13)
[2023-06-07] MEDS ORDERED: ALPRAZolam 0.5 MG TAB PO PRN (11:13)
[2023-06-07] MEDS ORDERED: ALPRAZolam 0.25 MG TAB PO PRN (11:13)
--- NOTE | 2023-06-07 11:18 | P.HPIM ---
History of Present Illness H&P Date: 06/07/23 Chief Complaint: nstemi This is a 83-year-old female patient who presented from her PCP with concerns of NSTEMI. Patient has had intermittent chest pain with the last week lasting from 30 minutes to an hour with radiation to her back. Patient has a past medical history of asthma, hypertension, liver disease, skin disorder. EKG performed showing sinus tachycardia with nonspecific ST T and T-wave abnormality. Chest x-ray completed showing no evidence for acute pulmonary disease. Patient did have elevated d-dimer CTA of the chest was performed showing no evidence for pulmonary embolism. Troponins elevated at 3.10, 3.6 and 3.090 patient was started on heparin drip 2-D echo ordered and cardiology services consulted. Upon exam patient is resting comfortably in bed. Current vital signs temp 98.6, heart rate 77, respiratory rate 18, blood pressure 116/71 with a pulse ox 95% on 2 L Review of Systems Please refer to HPI otherwise unremarkable Past Medical History Past Medical History: Asthma, Hypertension, Liver Disease, Skin Disorder Additional Past Medical History / Comment(s): Psoriasis. 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 History of Any Multi-Drug Resistant Organisms: None Reported Past Surgical History: Appendectomy, Hysterectomy Additional Past Surgical History / Comment(s): PRECIOUS 1981, BSO in 1983. Cystocele and rectocele repairs in 1999. 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 Colonoscopy 2014 (4th). Past Psychological History: No Psychological Hx Reported Smoking Status: Never smoker Past Alcohol Use History: Rare Past Drug Use History: None Reported - Past Family History Mother Additional Family Medical History / Comment(s): FROM A "BLOOD CLOT" Father Family Medical History: Congestive Heart Failure (CHF), Diabetes Mellitus Medications and Allergies Home Medications Medication Instructions Recorded Confirmed Type RX: Aspirin 81 mg PO DAILY 08/22/14 06/06/23 History Torsemide 20 mg PO DAILY 08/22/14 06/06/23 History allopurinoL [Allopurinol] 300 mg PO DAILY 08/22/14 06/06/23 History Albuterol Sulfate [Albuterol 2 puff PO RT-Q6H PRN 06/06/23 06/06/23 History Sulfate Hfa] Cholecalciferol [Vitamin D3 (25 25 mcg PO DAILY 06/06/23 06/06/23 History Mcg = 1000 Iu)] Cyanocobalamin (Vitamin B-12) 1,000 mcg PO DAILY 06/06/23 06/06/23 History [Vitamin B-12] Lansoprazole [Prevacid] 30 mg PO DAILY 06/06/23 06/06/23 History Multivitamins, Thera [Multivitamin 1 tab PO DAILY 06/06/23 06/06/23 History (formulary)] Allergies Allergy/AdvReac Type Severity Reaction Status Date / Time adhesive Allergy Rash/Hives Verified 06/06/23 17:42 atorvastatin calcium Allergy Nausea & Verified 06/06/23 17:42 [From Lipitor] Vomiting & Diarrhea Physical Exam Vitals: Vital Signs Temp Pulse Pulse Resp BP BP Pulse Ox 06/07/23 08:00 77 18 116/71 95 06/07/23 06:00 62 16 118/57 94 L 06/07/23 04:00 61 18 99/59 93 L 06/07/23 03:00 68 19 105/57 94 L 06/07/23 02:00 75 20 98/56 93 L 06/07/23 01:00 65 15 96/53 93 L 06/07/23 00:00 80 20 106/56 94 L 06/06/23 23:00 63 18 103/57 94 L 06/06/23 22:00 64 20 123/55 93 L 06/06/23 21:03 64 16 135/76 94 L 06/06/23 21:00 66 20 121/58 93 L 06/06/23 20:00 63 20 115/59 95 06/06/23 18:30 82 16 120/78 94 L 06/06/23 18:00 78 18 118/69 96 06/06/23 17:30 79 18 117/63 94 L 06/06/23 17:00 80 16 115/95 91 L 06/06/23 16:42 82 18 114/74 96 06/06/23 16:39 99 06/06/23 16:01 97.8 F 101 H 18 124/75 94 L Intake and Output 06/06/23 06/07/23 06/07/23 22:59 06:59 14:59 Intake Total 115.388 Balance 115.388 Intake: Intake, IV Titration 115.388 Amount Heparin Sod,Pork in 0.45% 115.388 NaCl 25,000 unit In 0.45 % NaCl 1 250ml.bag @ 12 UNITS/KG/HR 9.471 mls/hr IV .Q24H [facility] Rx#: [id number] Oral 0 Other: Weight 78.925 kg Head normocephalic Neck supple Lungs clear to auscultation bilaterally no wheezing or crackles Heart regular rate and rhythm S1-S2, no rub or gallop Abdomen is soft nontender nondistended positive bowel sounds no hepatosplenomegaly Extremities no edema Neuro alert and orientated to 3 Results CBC & Chem 7: 06/06/23 17:30 06/06/23 17:30 Labs: Abnormal Lab Results - Last 24 Hours (Table) 06/06/23 06/06/23 06/06/23 Range/Units 17:30 17: 17:30 MCV 100.4 H (80.0-100.0) fL APTT (22.0-30.0) sec D-Dimer 1.80 H (<0.60) mg/L FEU Carbon Dioxide 33 H (22-30) mmol/L BUN 23 H (7-17) mg/dL Glucose 140 H (74-99) mg/dL AST 60 H (14-36) U/L Troponin I (0.000-0.034) ng/mL 06/06/23 06/06/23 06/07/23 Range/Units 17:30 21:18 00:38 MCV (80.0-100.0) fL APTT (22.0-30.0) sec D-Dimer (<0.60) mg/L FEU Carbon Dioxide (22-30) mmol/L BUN (7-17) mg/dL Glucose (74-99) mg/dL AST (14-36) U/L Troponin I 3.100 H* 3.600 H* 3.090 H* (0.000-0.034) ng/mL 06/07/23 Range/Units 06:13 MCV (80.0-100.0) fL APTT 41.0 H (22.0-30.0) sec D-Dimer (<0.60) mg/L FEU Carbon Dioxide (22-30) mmol/L BUN (7-17) mg/dL Glucose (74-99) mg/dL AST (14-36) U/L Troponin I (0.000-0.034) ng/mL Assessment and Plan Assessment: 1. Chest pain secondary to non-STEMI 2. History of asthma 3. History of essential hypertension 4. History of liver disease 5. History of colovaginal fistula 6. History of psoriasis at This time patient has been admitted to [facility] care Heparin drip ordered Cardiology service is consulted 2-D echo ordered Tentative plans for cardiac catheterization on 06/08/2023 repeat labs ordered Time with Patient: Greater than 30 (Greater than 60% of the total time spent in counseling and coordination of care)
--- NOTE | 2023-06-07 11:26 | P.CRDCN ---
History of Present Illness History of present illness: HISTORY OF PRESENT ILLNESS: This is a 83-year-old female with a past medical history significant for psoriasis, colon resection, splenectomy. 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 We have been asked to see the patient in consultation for elevated troponins. Patient examined at the bedside. Patient states that she went to see her primary care physician yesterday and mentioned to him that she has been having some chest discomfort. He obtained an EKG and referred her to the emergency room. The patient states that she started having chest pain last week. She describes it as a soreness. She states the pain radiated into her back. At the time of examination this morning, she denies any chest pain or pressure. She denies any shortness of breath. The patient was found to have elevated troponins and was started on IV heparin. * EKG reveals sinus mechanism with ST depression in V2. Repeat EKG performed this morning with improvement in ST depression. * Chest xray no evidence for acute pulmonary disease * Chest CTA: Negative for pulmonary embolism * Laboratory data: W BC 9.4. Hemoglobin 14.3. Platelet count 236. D-dimer 1.80. Sodium 141. Potassium 3.6. BUN 23. Creatinine 0.90. Troponin 3.100. 3.600. 3.090. * Current home cardiac medications include torsemide 20 mg daily. * Patient underwent debridement stress test in July 2021 which was negative for ischemia REVIEW OF SYSTEMS: At the time of my exam: CONSTITUTIONAL: Denies fever or chills. HEENT: Denies blurred vision, vision changes, or eye pain. Denies hemoptysis CARDIOVASCULAR: Denies chest pain. Denies orthopnea. Denies PND. Denies palp itations RESPIRATORY: Denies shortness of breath. GASTROINTESTINAL: Denies abdominal pain. Denies nausea or vomiting. HEMATOLOGIC: Denies bleeding disorders. GENITOURINARY: Denies any blood in urine. SKIN: Denies pruitis. Denies rash. PHYSICAL EXAM: VITAL SIGNS: Reviewed. GENERAL: Well-developed in no acute distress. HEENT: Head is normocephalic. Pupils are equal, round. Sclerae anicteric. Mucous membranes of the mouth are moist. Neck supple. No JVD or thyromegaly LUNGS: Respirations even and unlabored. Lungs essentially clear to auscultation bilaterally. HEART: Regular rate and rhythm. S1 and S2 heard. ABDOMEN: Soft. Nondistended. Nontender. EXTREMITIES: Normal range of motion. No clubbing or cyanosis. Peripheral pulses intact. No lower extremity edema NEUROLOGIC: Awake and alert. Oriented x 3. ASSESSMENT: Non-STEMI History of psoriasis History of colon resection History of splenectomy PLAN: Obtain 2-D echo to assess cardiac structure and function Continue IV heparin Add aspirin 81 mg daily, atorvastatin 80 mg at night, metoprolol tartrate 25 mg twice a day Continue nitro paste Nothing by mouth at midnight Patient to undergo cardiac catheterization tomorrow with Dr. Wray Nurse practitioner note has been reviewed by physician. Signing provider agrees with the documented findings, assessment, and plan of care. Past Medical History Past Medical History: Asthma, Hypertension, Liver Disease, Skin Disorder Additional Past Medical History / Comment(s): Psoriasis. 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 History of Any Multi-Drug Resistant Organisms: None Reported Past Surgical History: Appendectomy, Hysterectomy Additional Past Surgical History / Comment(s): PRECIOUS 1981, BSO in 1983. Cystocele and rectocele repairs in 1999. 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 Colonoscopy 2014 (4th). Past Psychological History: No Psychological Hx Reported Smoking Status: Never smoker Past Alcohol Use History: Rare Past Drug Use History: None Reported - Past Family History Mother Additional Family Medical History / Comment(s): FROM A "BLOOD CLOT" Father Family Medical History: Congestive Heart Failure (CHF), Diabetes Mellitus Medications and Allergies Home Medications Medication Instructions Recorded Confirmed Type Aspirin 81 mg PO DAILY 08/22/14 06/06/23 History Torsemide 20 mg PO DAILY 08/22/14 06/06/23 History allopurinoL [Allopurinol] 300 mg PO DAILY 08/22/14 06/06/23 History Albuterol Sulfate [Albuterol 2 puff PO RT-Q6H PRN 06/06/23 06/06/23 History Sulfate Hfa] Cholecalciferol [Vitamin D3 (25 25 mcg PO DAILY 06/06/23 06/06/23 History Mcg = 1000 Iu)] Cyanocobalamin (Vitamin B-12) 1,000 mcg PO DAILY 06/06/23 06/06/23 History [Vitamin B-12] Lansoprazole [Prevacid] 30 mg PO DAILY 06/06/23 06/06/23 History Multivitamins, Thera [Multivitamin 1 tab PO DAILY 06/06/23 06/06/23 History (formulary)] Allergies Allergy/AdvReac Type Severity Reaction Status Date / Time adhesive Allergy Rash/Hives Verified 06/06/23 17:42 atorvastatin calcium Allergy Nausea & Verified 06/06/23 17:42 [From Lipitor] Vomiting & Diarrhea Physical Exam Vitals: Vital Signs Temp Pulse Pulse Resp BP Pulse Ox 06/07/23 06:00 62 16 118/57 94 L 06/07/23 04:00 61 18 99/59 93 L 06/07/23 03:00 68 19 105/57 94 L 06/07/23 02:00 75 20 98/56 93 L 06/07/23 01:00 65 15 96/53 93 L 06/07/23 00:00 80 20 106/56 94 L 06/06/23 23:00 63 18 103/57 94 L 06/06/23 22:00 64 20 123/55 93 L 06/06/23 21:03 64 16 135/76 94 L 06/06/23 21:00 66 20 121/58 93 L 06/06/23 20:00 63 20 115/59 95 06/06/23 18:30 82 16 120/78 94 L 06/06/23 18:00 78 18 118/69 96 06/06/23 17:30 79 18 117/63 94 L 06/06/23 17:00 80 16 115/95 91 L 06/06/23 16:42 82 18 114/74 96 06/06/23 16:39 99 06/06/23 16:01 97.8 F 101 H 18 124/75 94 L Intake and Output 06/06/23 06/07/23 06/07/23 22:59 06:59 14:59 Intake Total 115.388 Balance 115.388 Intake: Intake, IV Titration 115.388 Amount Heparin Sod,Pork in 0.45% 115.388 NaCl 25,000 unit In 0.45 % NaCl 1 250ml.bag @ 12 UNITS/KG/HR 9.471 mls/hr IV .Q24H [facility] Rx#: [id number] Oral 0 Other: Weight 78.925 kg Results 06/06/23 17:30 06/06/23 17:30 Cardiac Enzymes 06/06/23 06/06/23 06/06/23 Range/Units 17:30 17:30 21:18 AST 60 H (14-36) U/L Troponin I 3.100 H* 3.600 H* (0.000-0.034) ng/mL 06/07/23 Range/Units 00:38 AST (14-36) U/L Troponin I 3.090 H* (0.000-0.034) ng/mL Coagulation 06/06/23 06/07/23 Range/Units 17:30 06:13 PT 10.2 10.6 (9.0-12.0) sec APTT 22.1 41.0 H (22.0-30.0) sec CBC 06/06/23 Range/Units 17:30 WBC 9.4 (3.8-10.6) k/uL RBC 4.35 (3.80-5.40) m/uL Hgb 14.3 (11.4-16.0) gm/dL Hct 43.7 (34.0-46.0) % Plt Count 236 (150-450) k/uL Comprehensive Metabolic Panel 06/06/23 Range/Units 17:30 Sodium 141 (137-145) mmol/L Potassium 3.6 (3.5-5.1) mmol/L Chloride 101 (98-107) mmol/L Carbon Dioxide 33 H (22-30) mmol/L BUN 23 H (7-17) mg/dL Creatinine 0.90 (0.52-1.04) mg/dL Glucose 140 H (74-99) mg/dL Calcium 9.4 (8.4-10.2) mg/dL AST 60 H (14-36) U/L ALT 21 (4-34) U/L Alkaline Phosphatase 112 (38-126) U/L Total Protein 7.4 (6.3-8.2) g/dL Albumin 4.2 (3.5-5.0) g/dL Current Medications Generic Name Dose Route Start Last Admin Trade Name Freq PRN Reason Stop Dose Admin Albuterol Sulfate 2.5 mg 06/07/23 09:50 Albuterol Nebulized 2.5 Mg/3 Ml INHALATION RT-Q6H PRN Shortness Of Breath Allopurinol 300 mg 06/08/23 09:00 Allopurinol 300 Mg Tab PO DAILY [facility] Aspirin 81 mg 06/08/23 09:00 Aspirin 325 Mg Tab PO DAILY [facility] Cholecalciferol 25 mcg 06/08/23 09:00 Cholecalciferol 25 Mcg (1000 Iu) Tablet PO DAILY [facility] Cyanocobalamin 1,000 mcg 06/08/23 09:00 Cyanocobalamin 500 Mcg Tab PO DAILY [facility] Heparin Sodium/Sodium Chloride 250 mls @ 9.471 mls/hr 06/06/23 21:00 06/07/23 09:12 25,000 unit/ Sodium Chloride IV 14 units/kg/hr .Q24H [facility] 11.05 mls/hr Titration Protocol 12 UNITS/KG/HR Multivitamins 1 each 06/08/23 09:00 Multivitamins, Thera 1 Each Tab PO DAILY [facility] Nitroglycerin 0.4 mg 06/06/23 20:49 Nitroglycerin Sl Tabs 0.4 Mg Tab SUBLINGUAL Q5M PRN Chest Pain Nitroglycerin 1 inch 06/07/23 00:00 06/07/23 06:27 Nitroglycerin Oint 1 Inch/Gm Packet TOPICAL 1 inch Q6HR [facility] Administration Pantoprazole Sodium 40 mg 06/08/23 07:30 Pantoprazole 40 Mg Tablet PO AC-BRKFST [facility] Torsemide 20 mg 06/08/23 09:00 Torsemide 20 Mg Tab PO DAILY [facility] Intake and Output 06/06/23 06/07/23 06/07/23 22:59 06:59 14:59 Intake Total 115.388 Balance 115.388 Intake: Intake, IV Titration 115.388 Amount Heparin Sod,Pork in 0.45% 115.388 NaCl 25,000 unit In 0.45 % NaCl 1 250ml.bag @ 12 UNITS/KG/HR 9.471 mls/hr IV .Q24H [facility] Rx#: [id number] Oral 0 Other: Weight 78.925 kg 06/06/23 17:30 06/06/23 17:30
[2023-06-07] MEDS: METOPROLOL TARTRATE 25 MG TAB PO SCH ×2 (11:47→20:53)
--- NOTE | 2023-06-07 12:53 | CA ---
Transthoracic Echo Report Name: Letha Harrison Age: 83 Gender: F : 1940 Exam Date: 06/07/2023 10:18 Exam Location: [facility] Ht (in): 59 Wt (lb): 174 Ordering Physician: Agustin Barrett MD Attending/Referring Phys: Accounts Collector Rainer Kimball Procedure CPT: Indications: nstemi Cardiac Hx: Technical Quality: Fair Contrast 1: Total Dose (mL): Contrast 2: Total Dose (mL): MEASUREMENTS (Male / Female) Normal Values 2D ECHO LV Diastolic Diameter PLAX 5.0 cm 4.2 - 5.9 / 3.9 - 5.3 cm LV Systolic Diameter PLAX 3.2 cm IVS Diastolic Thickness 1.2 cm 0.6 - 1.0 / 0.6 - 0.9 cm LVPW Diastolic Thickness 1.2 cm 0.6 - 1.0 / 0.6 - 0.9 cm LV Relative Wall Thickness 0.5 RV Internal Dim ED PLAX 2.3 cm LVOT Diameter 2.1 cm Aortic Root Diameter 3.0 cm LA Systolic Diameter LX 2.2 cm 3.0 - 4.0 / 2.7 - 3.8 cm LV Diastolic Volume MOD BP 58.7 cm??? 67 - 155 / 56 - 104 cm??? LV Systolic Volume MOD BP 33.1 cm??? - 58 / 19 - 49 cm??? LV Ejection Fraction MOD BP 43.6 % >= 55 % LV Cardiac Index MOD BP 899.1 cm???/min???m??? LV Diastolic Volume MOD 4C 54.7 cm??? LV Systolic Volume MOD 4C 30.8 cm??? LV Ejection Fraction MOD 4C 43.6 % LV Cardiac Index MOD 4C 836.9 cm???/min???m??? LV Diastolic Length 4C 6.7 cm LV Systolic Length 4C 6.2 cm LV Diastolic Volume MOD 2C 60.6 cm??? LV Systolic Volume MOD 2C 33.4 cm??? LV Ejection Fraction MOD 2C 44.9 % LV Cardiac Index MOD 2C 954.3 cm???/min???m??? LV Diastolic Length 2C 7.0 cm LV Systolic Length 2C 6.7 cm LA Volume 46.3 cm??? 18 - 58 / 22 - 52 cm??? Ascending Aorta Diameter 2.7 cm DOPPLER AV Peak Velocity 124.2 cm/s AV Peak Gradient 6.2 mmHg LVOT Peak Velocity 93.7 cm/s LVOT Peak Gradient 3.5 mmHg AV Area Cont Eq pk 2.6 cm??? MV Peak Velocity 124.0 cm/s MV Peak Gradient 6.1 mmHg MV Mean Velocity 59.6 cm/s MV Mean Gradient 1.7 mmHg MV Velocity Time Integral 40.0 cm Mitral E Point Velocity 76.1 cm/s Mitral A Point Velocity 107.4 cm/s Mitral E to A Ratio 0.7 MV Deceleration Time 285.3 ms TR Peak Velocity 214.4 cm/s TR Peak Gradient 18.4 mmHg Right Ventricular Systolic Press 23.4 mmHg PV Peak Velocity 90.4 cm/s PV Peak Gradient 3.3 mmHg FINDINGS Left Ventricle Left ventricular cavity size normal. Mildly increased left ventricular wall thickness. Left ventricular ejection fraction is estimated at 40-45 %. Inferior and inferolateral wall hypokinesis. Right Ventricle Normal right ventricular size. RVSP= 23mmhg. Right Atrium Normal right atrial size. Left Atrium Normal left atrial size. Mitral Valve Mildmitral annular calcification. No mitral stenosis. Mild mitral regurgitation. Aortic Valve Mild AV Calcification. No aortic valve stenosis or regurgitation. Tricuspid Valve Structurally normal tricuspid valve. Mild TR. Pulmonic Valve Pulmonic valve not well visualized. Trace pulmonic regurgitation. Pericardium Normal pericardium. Aorta Normal size aortic root and proximal ascending aorta. CONCLUSIONS 1. Normal left ventricular size with moderate decrease in the ejection fraction with segmental wall motion abnormality 2. Mild mitral and tricuspid regurgitation with no evidence of pulmonary hypertension. Previewed by: Dr. Vinita Wadsworth MD (Electronically Signed) Final Date: 07 June 2023 12:52
[2023-06-07] MEDS: ATORVASTATIN 80 MG TAB PO SCH (20:53)
[2023-06-07] MEDS: HEPARIN SOD,PORK IN 0.45% NACL 25,000 UNIT in 0.45% NACL 1 250ML.BAG IV SCH (20:53)
[2023-06-07] MEDS ORDERED: SODIUM CHLORIDE 0.9% 1,000 ML in EMPTY BAG 1 BAG IV SCH (23:00)
[2023-06-08] MEDS: NITROGLYCERIN OINT 1 INCH/GM PACKET TOPICAL SCH ×2 (00:15→05:52)
[2023-06-08] MEDS ORDERED: ASPIRIN 325 MG TAB PO ONE (05:00)
[2023-06-08] MEDS ORDERED: ATORVASTATIN 80 MG TAB PO ONE (05:00)
[2023-06-08 06:05] LABS: Glucose,Whole Blood 138 mg/dL (70-110)
[2023-06-08] MEDS: allopurinoL 300 MG TAB PO SCH (06:07)
[2023-06-08] MEDS: CHOLECALCIFEROL 25 MCG (1000 IU) TABLET PO SCH (06:07)
[2023-06-08] MEDS: METOPROLOL TARTRATE 25 MG TAB PO SCH ×2 (06:07→22:06)
[2023-06-08] MEDS: MULTIVITAMINS, THERA 1 EACH TAB PO SCH (06:07)
[2023-06-08] MEDS: PANTOPRAZOLE 40 MG TABLET PO SCH (06:08)
[2023-06-08] MEDS: TORSEMIDE 20 MG TAB PO SCH ×2 (06:08→06:29)
[2023-06-08] MEDS: CYANOCOBALAMIN 500 MCG TAB PO SCH (06:08)
[2023-06-08] MEDS: ASPIRIN 81 MG PO SCH (06:08)
[2023-06-08] MEDS ORDERED: HEPARIN SODIUM,PORCINE 2,500 UNIT in SODIUM CHLORIDE 0.9% 250 ML IRRIGATION PRN (07:00)
[2023-06-08] MEDS ORDERED: HEPARIN SODIUM,PORCINE 10,000 UNIT in SODIUM CHLORIDE 0.9% 1,000 ML IRRIGATION PRN (07:00)
[2023-06-08] MEDS ORDERED: VERAPAMIL 2.5 MG/ML 2 ML AMP ONE (07:21)
[2023-06-08] MEDS ORDERED: HEPARIN SODIUM 1,000 UN/ML (10ML VL) ONE (07:24)
[2023-06-08] MEDS ORDERED: SODIUM CHLORIDE 0.9% 250 ML IV ONE (07:30)
[2023-06-08] MEDS ORDERED: LIDOCAINE 1% INJ 10MG/ML (5 ML VIAL-PF) SQ ONE (08:06)
[2023-06-08] MEDS ORDERED: MIDAZOLAM 2 MG/2 ML VIAL IVP ONE (08:06)
[2023-06-08] MEDS ORDERED: VERAPAMIL SYRINGE (5 MG/10 ML) IVP ONE (08:10)
[2023-06-08] MEDS: HEPARIN SODIUM 1,000 UN/ML (10ML VL) IVP ONE ×2 (08:10→08:20)
[2023-06-08] MEDS ORDERED: SODIUM CHLORIDE 0.9% 1,000 ML IV ONE (08:23)
[2023-06-08] MEDS ORDERED: CLOPIDOGREL 75 MG TAB ONE (08:32)
[2023-06-08] MEDS ORDERED: CLOPIDOGREL 75 MG TAB PO ONE (08:37)
[2023-06-08] MEDS ORDERED: NITROGLYCERIN 1000MCG/10ML SYRINGE INTRACORON ONE (08:43)
[2023-06-08] MEDS ORDERED: IOPAMIDOL-370 100ML BTL INJ ONE ×2 (08:47→08:48)
[2023-06-08] MEDS ORDERED: HYDROmorphone 0.5 MG/0.5 ML SYRINGE IVP ONE (08:50)
[2023-06-08] MEDS: CLOPIDOGREL 75 MG TAB PO SCH (09:30)
[2023-06-08] MEDS: SODIUM CHLORIDE 0.9% 1,000 ML IV SCH ×2 (09:31→22:11)
--- NOTE | 2023-06-08 10:40 | CC ---
CARDIAC CATHETERIZATION REPORT PROCEDURES PERFORMED: 1. Left heart catheterization and coronary angiography. 2. Percutaneous transluminal coronary angioplasty and stenting of a totally occluded mid circumflex coronary artery. 3. Intravascular ultrasound of circumflex coronary artery. PERFORMED BY: Dr. Brian Wray. ANESTHESIA: Moderate conscious sedation time was 41 minutes. The patient was administered Versed. Oxygen saturation, hemodynamics, and EKG were monitored closely. This patient received aspirin before the procedure and 600 mg of Plavix in the laborer chemical processing. She was also placed on intravenous heparin of about 5500 units. Her ACT was 265. She will be on aspirin and Plavix without interruption for 1 year. CLINICAL INFORMATION: Ms. Letha Harrison is an 83-year-old lady with history of hypertension and hyperlipidemia, who came into the hospital with 3 to 4 days history of chest discomfort, had a troponin of 3.1, showed a downward trend, but continued to have tightness in the chest. She was heparinized and advised cardiac catheterization. Risks, benefits, options, and rationale were explained. She has hypertension and hyperlipidemia. PROCEDURE NOTE: Under local anesthesia and strict aseptic precautions, a 6-Citizen Of [place] introducer was placed in the right radial artery. Using a JL3.5 and JR4 catheters, I performed coronary angiography and the same right catheter was used to check LV pressures. LV-gram was not performed. Following this, I proceeded with a PCI of circumflex and after the PCI of circumflex was completed, sheath was taken out and TR band applied as per protocol with saturation of fingers of the right hand of about 94%. The patient tolerated procedure well. There were no complications. CARDIAC CATHETERIZATION FINDINGS: Left ventricular end-diastolic pressure was 10 mmHg without any gradient across the aortic valve. CORONARY ANGIOGRAPHY FINDINGS: 1. Right coronary artery is a super dominant vessel. No significant disease. Distally, it bifurcates into large PDA and PLV, both of which have only minor irregularities. No significant disease. RCA is a super dominant vessel. No significant disease. 2. Left main coronary artery is long, patent diseased free vessel that bifurcates into LAD and circumflex. 3. Left anterior descending coronary artery: This vessel has about of 35% proximal lesion and mid lesion of 40% and then the caliber improves, and distally, the vessel tapers down to a small caliber as it run towards the apex and curves over the inferoapical wall. LAD, therefore, has about a 30% to 40% lesions. No significant disease. It gives off 2 good-sized diagonal branches and several septal branches. No significant disease in LAD noted. 4. Left posterior circumflex coronary artery: Nondominant vessel, gives off a left atrial circumflex branch and an AV groove branch. Then, the vessel is totally occluded without much antegrade flow. This appears to be a subacute occlusion. Total occlusion of circumflex was noted. FINAL IMPRESSION: This patient has normal filling pressures. No gradient. Right-dominant system without significant disease in the dominant RCA or left main. LAD has about a 40% mid lesion and 35% proximal lesion. Minor irregularities distally. Circumflex is totally occluded after the groove branch and this appears to be the culprit lesion. Circumflex is nondominant. RECOMMENDATIONS: I have recommended PCI of circumflex and performed it in the same setting. PCI PROCEDURE DETAILS: I used a JL3.5 guide catheter. A Runthrough wire with a 45 degree SuperCross Runthrough wire was a long wire. With this, I crossed the lesion. Predilatation was performed with a 2.0 caliber NC Trek balloon. I then deployed a 3.25 caliber 18 mm long Xience stent at the total occlusion. Excellent angiographic result was achieved. I performed an intravascular ultrasound, which revealed excellent apposition and full expansion of the stent. The patient had mild chest discomfort. No EKG changes. Excellent angiographic result was achieved. The sheath was taken out and TR band applied as per protocol. Details were discussed with the patient and her family. I expect she will be discharged tomorrow if she remains stable. She will be on aspirin and Plavix without interruption for 1 year. MMODL / IJN: [id number] /
[2023-06-08 10:41] LABS: ALT 16 U/L (4-34); AST 34 U/L (14-36); African American GFR (CKD) >90 (>60 ml/min/1.73 sqM); Alkaline Phosphatase 106 U/L (38-126); Anion Gap 7 mmol/L; Blood Urea Nitrogen 20 mg/dL (7-17); Calcium 8.8 mg/dL (8.4-10.2); Carbon Dioxide 26 mmol/L (22-30); Chloride 105 mmol/L (98-107); Glucose 113 mg/dL (74-99); Non-African American GFR(CKD) 82 (>60 ml/min/1.73 sqM); Sodium 138 mmol/L (137-145); Total Bilirubin 0.8 mg/dL (0.2-1.3); Total Protein 5.8 g/dL (6.3-8.2)
[2023-06-08 11:23] LABS: Basophils % (A) 0 %; Eosinophils # (A) 0.4 k/uL (0-0.7); Eosinophils % (A) 4 %; HCT 36.4 % (34.0-46.0); Hypochromasia Slight; Lymphocytes # (A) 2.6 k/uL (1.0-4.8); Lymphocytes % (A) 31 %; MCH 31.7 pg (25.0-35.0); MCHC 31.1 g/dL (31.0-37.0); MCV 101.8 fL (80.0-100.0); Macrocytosis Slight; Mean Platelet Volume 10.9; Monocytes # (A) 0.6 k/uL (0-1.0); Monocytes % (A) 7 %; Neutrophils # (A) 4.6 k/uL (1.3-7.7); Neutrophils % (A) 54 %; Platelet Count 188 k/uL (150-450); RBC 3.58 m/uL (3.80-5.40); RDW 13.6 % (11.5-15.5); WBC 8.6 k/uL (3.8-10.6)
[2023-06-08 11:28] LABS: HGB 11.3 gm/dL (11.4-16.0)
--- NOTE | 2023-06-08 17:32 | P.PN ---
Subjective Progress Note Date: 06/08/23 Letha Harrison, is a 83-year-old female patient who presented from her PCP with concerns of NSTEMI. Patient has had intermittent chest pain with the last week lasting from 30 minutes to an hour with radiation to her back. Patient has a past medical history of asthma, hypertension, liver disease, skin disorder. EKG performed showing sinus tachycardia with nonspecific ST T and T-wave abnormality. Chest x-ray completed showing no evidence for acute pulmonary disease. Patient did have elevated d-dimer CTA of the chest was performed showing no evidence for pulmonary embolism. Troponins elevated at 3.10, 3.6 and 3.090 patient was started on heparin drip 2-D echo ordered and cardiology services consulted. Upon exam patient is resting comfortably in bed. Current vital signs temp 98.6, heart rate 77, respiratory rate 18, blood pressure 116/71 with a pulse ox 95% on 2 L On 06/08/2023 patient was seen and examined on the medical floor she is alert and oriented 3 in no apparent distress she is feeling well and denies any symptoms at this time there is no fever or chills no headache or dizziness no chest pain no shortness of breath no cough no nausea or vomiting no abdominal pain no diarrhea no blood in the stools no burning with urination no frequency or urgency and no hematuria. Objective - Vital Signs Vital signs: Vital Signs Temp 97.9 F 06/08/23 06:55 Pulse 57 L 06/08/23 09:25 Resp 16 06/08/23 09:25 BP 104/54 06/08/23 09:25 Pulse Ox 94 L 06/08/23 09:53 FiO2 Intake & Output 06/07/23 06/08/23 06/08/23 18:59 06:59 18:59 Intake Total 559.946 152.491 350 Balance 559.946 152.491 350 Weight 78.925 kg Intake: IV 350 Intake, IV Titration 201.946 152.491 Amount Heparin Sod,Pork in 0.45% 201.946 152.491 NaCl 25,000 unit In 0.45 % NaCl 1 250ml.bag @ 12 UNITS/KG/HR 9.471 mls/hr IV .Q24H [facility] Rx#: [id number] Oral 358 Other: # Voids 2 2 - Exam In general patient is alert and oriented x 3 in no distress HEENT head normocephalic and atraumatic Neck is supple no JVD no goiter no lymphadenopathy no carotid bruit Chest examination is clear to auscultation no crackles no wheezing Cardiac exam reveals regular heart sounds S1 and S2 no gallops no murmurs Abdomen is soft nontender no organomegaly with normal bowel sounds Extremity exam reveals no edema no cyanosis or clubbing Neurological examination reveals no gross focal deficits - Labs CBC & Chem 7: 06/08/23 09:03 06/08/23 09:03 Labs: Abnormal Lab Results - Last 24 Hours (Table) 06/07/23 06/08/23 06/08/23 Range/Units 15:26 05:57 09:03 APTT 49.6 H (22.0-30.0) sec BUN 20 H (7-17) mg/dL Glucose 113 H (74-99) mg/dL POC Glucose (mg/dL) 138 H (70-110) mg/dL Total Protein 5.8 L (6.3-8.2) g/dL Albumin 3.0 L (3.5-5.0) g/dL 06/08/23 Range/Units 09:03 APTT 163.6 H* (22.0-30.0) sec BUN (7-17) mg/dL Glucose (74-99) mg/dL POC Glucose (mg/dL) (70-110) mg/dL Total Protein (6.3-8.2) g/dL Albumin (3.5-5.0) g/dL Assessment and Plan Assessment: 1. Chest pain secondary to non-STEMI, patient is scheduled for cardiac catheterization today 2. History of asthma 3. History of essential hypertension 4. History of liver disease 5. History of colovaginal fistula 6. History of psoriasis at This time patient has been admitted to selective care Heparin drip ordered Cardiology service is consulted 2-D echo ordered plans for cardiac catheterization on 06/08/2023 repeat labs ordered
[2023-06-08] MEDS ORDERED: LOSARTAN 25 MG TAB PO SCH (21:00)
[2023-06-08] MEDS: ATORVASTATIN 80 MG TAB PO SCH (22:08)
[2023-06-09] MEDS: PANTOPRAZOLE 40 MG TABLET PO SCH (05:42)
[2023-06-09 05:46] VITALS: RESP 16
[2023-06-09 07:32] LABS: Basophils % (A) 1 %; Eosinophils # (A) 0.4 k/uL (0-0.7); Eosinophils % (A) 5 %; HGB 11.2 gm/dL (11.4-16.0); Hypochromasia Slight; Lymphocytes # (A) 2.1 k/uL (1.0-4.8); Lymphocytes % (A) 29 %; MCH 32.4 pg (25.0-35.0); MCHC 31.9 g/dL (31.0-37.0); MCV 101.5 fL (80.0-100.0); Macrocytosis Slight; Mean Platelet Volume 8.1; Monocytes # (A) 0.5 k/uL (0-1.0); Monocytes % (A) 7 %; Neutrophils % (A) 56 %; Platelet Count 197 k/uL (150-450); RBC 3.45 m/uL (3.80-5.40); RDW 13.5 % (11.5-15.5); WBC 7.2 k/uL (3.8-10.6)
[2023-06-09 08:09] LABS: ALT 16 U/L (4-34); AST 28 U/L (14-36); African American GFR (CKD) 72 (>60 ml/min/1.73 sqM); Alkaline Phosphatase 106 U/L (38-126); Anion Gap 3 mmol/L; Blood Urea Nitrogen 18 mg/dL (7-17); Calcium 8.6 mg/dL (8.4-10.2); Carbon Dioxide 30 mmol/L (22-30); Chloride 107 mmol/L (98-107); Glucose 126 mg/dL (74-99); Non-African American GFR(CKD) 62 (>60 ml/min/1.73 sqM); Potassium 4.2 mmol/L (3.5-5.1); Sodium 140 mmol/L (137-145); Total Bilirubin 0.6 mg/dL (0.2-1.3); Total Protein 5.5 g/dL (6.3-8.2)
[2023-06-09] MEDS: CHOLECALCIFEROL 25 MCG (1000 IU) TABLET PO SCH (08:28)
[2023-06-09] MEDS: ASPIRIN 81 MG PO SCH (08:28)
[2023-06-09] MEDS: METOPROLOL TARTRATE 25 MG TAB PO SCH (08:28)
[2023-06-09] MEDS: allopurinoL 300 MG TAB PO SCH (08:28)
[2023-06-09] MEDS: CYANOCOBALAMIN 500 MCG TAB PO SCH (08:28)
[2023-06-09] MEDS: CLOPIDOGREL 75 MG TAB PO SCH (08:28)
[2023-06-09] MEDS: MULTIVITAMINS, THERA 1 EACH TAB PO SCH (08:28)
[2023-06-09 10:20] VITALS: BP 124/61; PULSE 83; TEMP 98
--- NOTE | 2023-06-09 12:36 | P.DS ---
Providers Date of admission: 06/06/23 20:50 Expected date of discharge: 06/09/23 Attending physician: Agustin Barrett Consults: 06/06/23 20:49 Consult Physician Urgent Consulting Provider: [facility] Consult Reason/Comments: N STEMI Do you want consulting provider notified?: Yes Primary care physician: Juan Gerard Hospital Course: Diagnosis on discharge: 1. Chest pain secondary to non-STEMI 2. History of asthma 3. History of essential hypertension 4. History of liver disease 5. History of colovaginal fistula 6. History of psoriasis Hospital course: Letha Harrison, is a 83-year-old female patient who presented from her PCP with concerns of NSTEMI. Patient has had intermittent chest pain with the last week lasting from 30 minutes to an hour with radiation to her back. Patient has a past medical history of asthma, hypertension, liver disease, skin disorder. EKG performed showing sinus tachycardia with nonspecific ST T and T-wave abnormality. Chest x-ray completed showing no evidence for acute pulmonary disease. Patient did have elevated d-dimer CTA of the chest was performed showing no evidence for pulmonary embolism. Troponins elevated at 3.10, 3.6 and 3.090 patient was started on heparin drip 2-D echo ordered and cardiology services consulted. Upon exam patient is resting comfortably in bed. Current vital signs temp 98.6, heart rate 77, respiratory rate 18, blood pressure 116/71 with a pulse ox 95% on 2 L On 06/08/2023 patient was seen and examined on the medical floor she is alert and oriented 3 in no apparent distress she is feeling well and denies any symptoms at this time there is no fever or chills no headache or dizziness no chest pain no shortness of breath no cough no nausea or vomiting no abdominal pain no diarrhea no blood in the stools no burning with urination no frequency or urgency and no hematuria. On 06/09 2023 patient was seen and examined on the medical floor she is alert and oriented 3 in no apparent distress yesterday she underwent cardiac catheterization with angioplasty and stent placement to the mid circumflex artery. Patient did well postprocedure. She was reevaluated today by cardiology and was cleared for discharge. Plan - Discharge Summary Discharge Rx Participant: No New Discharge Prescriptions: New Losartan [Cozaar] 25 mg PO HS #90 tab Metoprolol Tartrate [Lopressor] 25 mg PO BID #180 tablet Atorvastatin [Lipitor] 80 mg PO HS #90 tab Nitroglycerin Sl Tabs [Nitrostat] 0.4 mg SUBLINGUAL Q5M PRN #100 tab PRN Reason: Chest Pain Clopidogrel [Plavix] 75 mg PO DAILY #90 tablet Continue Aspirin 81 mg PO DAILY allopurinoL [Allopurinol] 300 mg PO DAILY Multivitamins, Thera [Multivitamin (formulary)] 1 tab PO DAILY Lansoprazole [Prevacid] 30 mg PO DAILY Cholecalciferol [Vitamin D3 (25 Mcg = 1000 Iu)] 25 mcg PO DAILY Albuterol Sulfate [Albuterol Sulfate Hfa] 2 puff PO RT-Q6H PRN PRN Reason: Shortness Of Breath Cyanocobalamin (Vitamin B-12) [Vitamin B-12] 1,000 mcg PO DAILY Discontinued Torsemide 20 mg PO DAILY Discharge Medication List Aspirin 81 mg PO DAILY 08/22/14 [History] allopurinoL [Allopurinol] 300 mg PO DAILY 08/22/14 [History] Albuterol Sulfate [Albuterol Sulfate Hfa] 2 puff PO RT-Q6H PRN 06/06/23 [History] Cholecalciferol [Vitamin D3 (25 Mcg = 1000 Iu)] 25 mcg PO DAILY 06/06/23 [History] Cyanocobalamin (Vitamin B-12) [Vitamin B-12] 1,000 mcg PO DAILY 06/06/23 [History] Lansoprazole [Prevacid] 30 mg PO DAILY 06/06/23 [History] Multivitamins, Thera [Multivitamin (formulary)] 1 tab PO DAILY 06/06/23 [ History] Atorvastatin [Lipitor] 80 mg PO HS #90 tab 06/09/23 [Rx] Clopidogrel [Plavix] 75 mg PO DAILY #90 tablet 06/09/23 [Rx] Losartan [Cozaar] 25 mg PO HS #90 tab 06/09/23 [Rx] Metoprolol Tartrate [Lopressor] 25 mg PO BID #180 tablet 06/09/23 [Rx] Nitroglycerin Sl Tabs [Nitrostat] 0.4 mg SUBLINGUAL Q5M PRN #100 tab 06/09/23 [Rx] Follow up Appointment(s)/Referral(s): Ervin Wray MD [STAFF PHYSICIAN] - 06/14/23 2:00 pm Juan Gerard MD [Primary Care Provider] - 1-2 days (please call the office to make a hospital follow up appointment.) Patient Instructions/Handouts: *Surgery [facility] - After Heart Catheterization - Die Maker Apprentice Instructions
--- NOTE | 2023-06-09 12:39 | P.PN ---
Subjective HISTORY OF PRESENT ILLNESS: This is a 83-year-old female with a past medical history significant for psoriasis, colon resection, splenectomy. 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 We have been asked to see the patient in consultation for elevated troponins. Patient examined at the bedside. Patient states that she went to see her primary care physician yesterday and mentioned to him that she has been having some chest discomfort. He obtained an EKG and referred her to the emergency room. The patient states that she started having chest pain last week. She describes it as a soreness. She states the pain radiated into her back. At the time of examination this morning, she denies any chest pain or pressure. She denies any shortness of breath. The patient was found to have elevated troponins and was started on IV heparin. * EKG reveals sinus mechanism with ST depression in V2. Repeat EKG performed th morning with improvement in ST depression. * Chest xray no evidence for acute pulmonary disease * Chest CTA: Negative for pulmonary embolism * Laboratory data: W BC 9.4. Hemoglobin 14.3. Platelet count 236. D-dimer 1.80. Sodium 141. Potassium 3.6. BUN 23. Creatinine 0.90. Troponin 3.100. 3.600. 3.090. * Current home cardiac medications include torsemide 20 mg daily. * Patient underwent debridement stress test in July 2021 which was negative for ischemia 06/09/2023 Patient is status post cardiac catheterization with Dr. Wray yesterday with stenting of totally occluded mid circumflex coronary artery. Patient examined this morning at the bedside. Patient denies chest pain or pressure. She denies shortness of breath. She has been up ambulating without difficulty. Patient's vital signs are stable. Echocardiogram completed revealing ejection fraction 40 -45%, mild MR, mild TR PHYSICAL EXAM: VITAL SIGNS: Reviewed. GENERAL: Well-developed in no acute distress. HEENT: Head is normocephalic. Pupils are equal, round. Sclerae anicteric. Mucous membranes of the mouth are moist. Neck supple. No JVD or thyromegaly LUNGS: Respirations even and unlabored. Lungs essentially clear to auscultation bilaterally. HEART: Regular rate and rhythm. S1 and S2 heard. ABDOMEN: Soft. Nondistended. Nontender. EXTREMITIES: Normal range of motion. No clubbing or cyanosis. Peripheral pulses intact. No lower extremity edema NEUROLOGIC: Awake and alert. Oriented x 3. ASSESSMENT: Non-STEMI, status post stenting of totally occluded mid circumflex Ischemic cardiomyopathy, EF 4045% History of psoriasis History of colon resection History of splenectomy PLAN: Continue current cardiac medications Continue high intensity statin Continue dual antiplatelet therapy with aspirin and Plavix Patient is stable for discharge home today from a cardiac standpoint She is to follow up outpatient with Dr. Wray Nurse practitioner note has been reviewed by physician. Signing provider agrees with the documented findings, assessment, and plan of care. Objective - Vital Signs Vital signs: Vital Signs Temp 98 F 06/09/23 08:00 Pulse 83 06/09/23 08:00 Resp 16 06/09/23 08:00 BP 124/61 06/09/23 08:00 Pulse Ox 91 L 06/09/23 08:00 FiO2 Intake & Output 06/08/23 06/09/23 06/09/23 18:59 06:59 18:59 Intake Total 1008 120 Balance 1008 120 Intake: IV 350 Oral 658 120 Other: # Voids 1 - Labs CBC & Chem 7: 06/09/23 07:13 06/09/23 07:13 Labs: Abnormal Lab Results - Last 24 Hours (Table) 06/09/23 06/09/23 Range/Units 07:13 07:13 RBC 3.45 L (3.80-5.40) m/uL Hgb 11.2 L (11.4-16.0) gm/dL MCV 101.5 H (80.0-100.0) fL BUN 18 H (7-17) mg/dL Glucose 126 H (74-99) mg/dL Total Protein 5.5 L (6.3-8.2) g/dL Albumin 3.0 L (3.5-5.0) g/dL
== END 2023-06-09 12:58 | disposition home or self-care (01) | DRG 247 ==
LOC: EC 15:45 → 3SCARD 20:50
PROVIDERS: ADMIT Internal Medicine; ATTEND Internal Medicine
PROC: 027034Z Dilation of Coronary Artery, One Artery with Drug-eluting Intraluminal Device, Percutaneous Approach (ICD-10-PCS; principal; 2023-06-08 07:30)
PROC: 4A023N7 Measurement of Cardiac Sampling and Pressure, Left Heart, Percutaneous Approach (ICD-10-PCS; 2023-06-08 07:30)
PROC: B2111ZZ Fluoroscopy of Multiple Coronary Arteries using Low Osmolar Contrast (ICD-10-PCS; 2023-06-08 07:30)
DX: I21.4 Non-ST elevation (NSTEMI) myocardial infarction (principal); I10 Essential (primary) hypertension; I25.110 Atherosclerotic heart disease of native coronary artery with unstable angina pectoris; I25.5 Ischemic cardiomyopathy; E78.5 Hyperlipidemia, unspecified; Z79.82 Long term (current) use of aspirin; Z79.899 Other long term (current) drug therapy; Z82.49 Family history of ischemic heart disease and other diseases of the circulatory system; Z83.3 Family history of diabetes mellitus; Z90.49 Acquired absence of other specified parts of digestive tract; Z90.710 Acquired absence of both cervix and uterus; Z90.81 Acquired absence of spleen; Z88.8 Allergy status to other drugs, medicaments and biological substances
CPT/HCPCS: 36415; 71046; 71275; 80053; 80061; 83735; 84484; 85025; 85379; 85610; 85730; 92978; 93005; 93306; 93458; 94760; 96365; 96366; 99291

== ENCOUNTER → 2023-07-20 | Outpatient (CLI) | payer MEDICARE ==
--- NOTE | 2023-07-21 17:50 | CA ---
Transthoracic Echo Report Name: Letha Harrison Age: 83 Gender: F : 1940 Exam Date: 07/20/2023 14:10 Exam Location: [facility] Echo Ht (in): 59 Wt (lb): 175 Ordering Physician: Ervin Wray MD ([id number]) Attending/Referring Phys: Ervin Wray MD ([id number]) [employer] Clerk Delfina Ng [facility] Procedure CPT: Indications: I25.2 OLD MYOCARDIAL INFARCTION Cardiac Hx: Technical Quality: Fair Contrast 1: Total Dose (mL): Contrast 2: Total Dose (mL): MEASUREMENTS (Male / Female) Normal Values 2D ECHO LV Diastolic Diameter PLAX 5.1 cm 4.2 - 5.9 / 3.9 - 5.3 cm LV Systolic Diameter PLAX 3.3 cm IVS Diastolic Thickness 0.8 cm 0.6 - 1.0 / 0.6 - 0.9 cm LVPW Diastolic Thickness 0.8 cm 0.6 - 1.0 / 0.6 - 0.9 cm LV Relative Wall Thickness 0.3 LVOT Diameter 2.0 cm M-MODE Aortic Root Diameter MM 3.0 cm LA Systolic Diameter MM 3.7 cm LA Ao Ratio MM 1.2 AV Cusp Separation MM 1.5 cm DOPPLER AV Peak Velocity 155.1 cm/s AV Peak Gradient 9.6 mmHg AV Mean Velocity 98.7 cm/s AV Mean Gradient 4.5 mmHg AV Velocity Time Integral 30.5 cm LVOT Peak Velocity 110.6 cm/s LVOT Peak Gradient 4.9 mmHg LVOT Velocity Time Integral 22.7 cm LVOT Stroke Volume 70.2 cm??? LVOT Stroke Volume Index 40.3 ml/m??? LVOT Cardiac Index 2230.6 cm???/min???m??? AV Area Cont Eq vti 2.3 cm??? AV Area Cont Eq pk 2.2 cm??? Mitral E Point Velocity 68.0 cm/s Mitral A Point Velocity 91.2 cm/s Mitral E to A Ratio 0.7 MV Deceleration Time 305.0 ms LV E' Lateral Velocity 8.2 cm/s Mitral E to LV E' Lateral Ratio 8.3 LV E' Septal Velocity 5.3 cm/s Mitral E to LV E' Septal Ratio 12.9 TR Peak Velocity 242.3 cm/s TR Peak Gradient 23.5 mmHg Right Atrial Pressure 3.0 mmHg Pulmonary Artery Systolic Pressu 26.5 mmHg Right Ventricular Systolic Press 28.5 mmHg FINDINGS Left Ventricle Left ventricular wall thickness normal. Left ventricular cavity size normal. Normal left ventricular systolic function with no obvious regional wall motion abnormalities. Left ventricular ejection fraction is estimated at 55-60%. Right Ventricle Normal right ventricular size. Right Atrium Normal right atrial size. Left Atrium Mild left atrial dilatation. Interatrial septal aneurysm. Mitral Valve Structurally normal mitral valve. Mild mitral annular calcification. No mitral regurgitation. Aortic Valve Trileaflet aortic valve. Aortic valve sclerosis. No aortic regurgitation. Tricuspid Valve Structurally normal tricuspid valve. Mild tricuspid regurgitation. Pulmonic Valve Pulmonic valve not well visualized. Mild pulmonic regurgitation. Pericardium No pericardial effusion. Echo free space anterior to the right ventricle likely represents a fat pad. Aorta Normal size aortic root. CONCLUSIONS Left ventricular ejection fraction . no obvious regional wall motion abnormalities. Mild left atrial dilatation. Interatrial septal aneurysm. No significant valvular dysfunction Previewed by: Dr Otis Tran (Electronically Signed) Final Date: 21 July 2023 17:49
== END | disposition home or self-care (01) ==
LOC: RADECHMAIN 13:48
PROVIDERS: ATTEND Internal Medicine Interventional Cardiology
DX: I25.2 Old myocardial infarction (principal); I25.3 Aneurysm of heart
CPT/HCPCS: 93306

== ENCOUNTER → 2024-04-29 | Outpatient (CLI) | payer MEDICARE ==
[2024-04-29 12:25] LABS: African American GFR (CKD) 55 (>60 ml/min/1.73 sqM); Blood Urea Nitrogen 32 mg/dL (7-17); Non-African American GFR(CKD) 48 (>60 ml/min/1.73 sqM)
== END | disposition home or self-care (01) ==
LOC: RADCTMAIN 11:45
PROVIDERS: ATTEND Internal Medicine
DX: Z53.9 Procedure and treatment not carried out, unspecified reason (principal)
CPT/HCPCS: 82565; 84520

== ENCOUNTER → 2024-04-30 | Outpatient (CLI) | payer MEDICARE ==
--- NOTE | 2024-05-04 22:07 | CT ---
EXAMINATION TYPE: CT angio head DATE OF EXAM: 04/30/2024 HISTORY: family history of aneurysm COMPARISON: None CT DLP: combined 2212.6 mGycm. Automated Exposure Control for Dose Reduction was Utilized. TECHNIQUE: CTA scan of the neck is performed without and with IV Contrast, patient injected with 85 mL of Isovue 370, axial images are obtained, coronal and sagittal reformatted images are reviewed. Th ree-D reconstructed images are created on an independent workstation and reviewed. Source images are reviewed. FINDINGS: Vasculature: Left vertebral artery is dominant. Vertebral arteries and internal carotid arteries are patent at the skull base. Cervical of [place]: Vertebral basilar system appears normal. Posterior cerebral vasculature is unrema rkable. Internal carotid arteries bifurcate normally into A1 and M1 segments. A2 segments are normal. The anterior communicating artery is not identified. The right posterior communicating artery is patent. The left posterior communicating artery is patent. Other: Posterior lateral right ethmoid air cell opacification is noted. Remaining paranasal sinuses a re clear. Hyperostosis frontalis internus, normal variant is present. There is some periventricular w [place] matter hypodensity, nonspecific but can be related to chronic white matter ischemic changes. IMPRESSION: 1. No suspicious aneurysm of the [place] of [place] 2. Normal [place] of [place] NASCET criteria was used in interpretation of this exam?
== END | disposition home or self-care (01) ==
LOC: RADCTMAIN 15:49
PROVIDERS: ATTEND Internal Medicine
DX: I72.9 Aneurysm of unspecified site (principal)
CPT/HCPCS: 70496; Q9967

== ENCOUNTER → 2024-08-20 | Outpatient (CLI) | payer MEDICARE ==
[2024-08-20 14:21] VITALS: BP 137/81; PULSE 104; RESP 17; TEMP 97.9
--- NOTE | 2024-08-20 14:59 | P.HPOB ---
History of Present Illness H&P Date: 08/20/24 Chief Complaint: The patient is here for her routine gynecologic exam and ma mmogram. This is an 84-year-old G2, P2 with an LMP of 1981. She is status post PRECIOUS and later BSO for benign reasons. She is without gynecologic complaints. Review of Systems Her weight has been stable. Respiratory: Occasional phlegm. She denies cardiac problems. GI: Occasional problems swallowing. She is scheduled for an upper scope with Dr. Anglin as well as a colonoscopy at that time. Past Medical History Past Medical History: Asthma, Coronary Artery Disease (CAD), Myocardial Infarction ([place]), Skin Disorder Additional Past Medical History / Comment(s): [place] April 2023. Psoriasis. 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 History of Any Multi-Drug Resistant Organisms: None Reported Past Surgical History: Appendectomy, Hysterectomy Additional Past Surgical History / Comment(s): PRECIOUS 1981, BSO in 1983. Cystocele and rectocele repairs in 1999. 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 Colonoscopy 2013 (4th). Cardiac stent placed April 2023. Eye surgery. Additional Past Anesthesia/Blood Transfusion Reaction / Comment(s): shaking with spinal block Date of Last Stent Placement:: April 2023. Past Psychological History: No Psychological Hx Reported Smoking Status: Never smoker Past Alcohol Use History: Rare (0 to 1/year.) Past Drug Use History: None Reported Additional History: She is a since 2019 and is not sexually active. - Past Family History Mother Additional Family Medical History / Comment(s): FROM A "BLOOD CLOT" after hip replacement Father Family Medical History: Congestive Heart Failure (CHF), Diabetes Mellitus Sister(s) Family Medical History: CVA/TIA Additional Family Medical History / Comment(s): Brain aneurysm. . Medications and Allergies Home Medications Medication Instructions Recorded Confirmed Type Aspirin 81 mg PO DAILY 08/22/14 08/20/24 History allopurinoL [Allopurinol] 300 mg PO DAILY 08/22/14 08/20/24 History Albuterol Sulfate [Albuterol 2 puff PO RT-Q6H PRN 06/06/23 08/20/24 History Sulfate Hfa] Cholecalciferol [Vitamin D3 (25 25 mcg PO DAILY 06/06/23 08/20/24 History Mcg = 1000 Iu)] Cyanocobalamin (Vitamin B-12) 1,000 mcg PO DAILY 06/06/23 08/20/24 History [Vitamin B-12] Lansoprazole [Prevacid] 30 mg PO DAILY 06/06/23 08/20/24 History Multivitamins, Thera [Multivitamin 1 tab PO DAILY 06/06/23 08/20/24 History (formulary)] Atorvastatin [Lipitor] 80 mg PO HS #90 tab 06/09/23 08/20/24 Rx Clopidogrel [Plavix] 75 mg PO DAILY #90 tablet 06/09/23 08/20/24 Rx Losartan [Cozaar] 25 mg PO HS #90 tab 06/09/23 08/20/24 Rx Metoprolol Tartrate [Lopressor] 25 mg PO BID #180 tablet 06/09/23 08/20/24 Rx Nitroglycerin Sl Tabs [Nitrostat] 0.4 mg SUBLINGUAL Q5M PRN #100 tab 06/09/23 08/20/24 Rx Furosemide [Lasix] 20 mg PO DAILY 08/20/24 08/20/24 History Isosorbide Dinitrate 30 mg PO DAILY 08/20/24 08/20/24 History Allergies Allergy/AdvReac Type Severity Reaction Status Date / Time adhesive Allergy Rash/Hives Verified 08/20/24 14:17 Exam Vital Signs Temp Pulse Resp BP Pulse Ox 08/20/24 14:19 97.9 F 104 H 17 137/81 94 L Intake and Output 08/19/24 08/20/24 08/20/24 22:59 06:59 14:59 Other: Weight 80.286 kg Height 4 feet 11 inches, weight 177 pounds, BMI 35.7. This is a well-developed well-nourished white female who is alert and oriented times 3 in no acute distress. HEENT: Within normal limits. NECK: Supple without mass or thyromegaly. CHEST AND LUNGS: There is mild expiratory wheezing with prolonged expiration phase. HEART: Regular rate and rhythm. BREASTS: Are without mass or discharge. AXILLARY EXAM: Negative for adenopathy. BACK: Negative for CVA tenderness. ABDOMEN: Soft, nontender, without palpable masses. PELVIC EXAM: External genitalia appears normal with moderate atrophy. Vagina appears normal with moderate atrophy. There is moderate shortening of the vagina with a depth of approximately 8 cm. There is no evidence of prolapse. Bimanual examination is negative for mass or tenderness. RECTAL EXAM: Rectovaginal exam is negative for mass or tenderness and is negative for occult blood. EXTREMITIES: Nontender. IMPRESSION: 1. 84-year-old menopausal female status post PRECIOUS with later BSO for benign reasons, with normal gynecologic exam. 2. History of osteopenia. PLAN: 1. Pap smears have been discontinued. 2. Self breast awareness was discussed with the patient. We have also discussed symptoms associated with inflammatory breast cancer. 3. Screening mammogram will be done today. 4. Osteoporosis prevention was discussed. I have stressed the importance of adequate calcium, vitamin D and regular exercise. Recommended amounts of calcium and vitamin D were also discussed. Bone density testing will be done today. 5. She states she is scheduled for a colonoscopy with upper endoscopy with Dr. Anglin for GI issues. 6. The patient was advised to return in 1-2 years for her well woman examination.
--- NOTE | 2024-08-21 08:38 | BD ---
EXAMINATION TYPE: Axial Bone Density DATE OF EXAM: 08/20/2024 CLINICAL HISTORY: 84 years old Female. ICD-10 CODE: [id number] POST DAVID Height: 4ft 11in Weight: 177 FRAX RISK QUESTIONS: Alcohol (3 or more units per day): no Family History (Parent hip fracture): no Glucocorticoids (More than 3mos): no (Ex: prednisone, prednisolone, methylprednisolone, dexamethasone, and hydrocortisone). History of Fracture in Adulthood: yes Secondary Osteoporosis: 1. Type 1 Diabetes: no 2. Hyperthyroidism: no 3. Menopause before 45: yes 4. Malnutrition: no 5. Chronic liver disease: no Rheumatoid Arthritis: n o Current Tobacco Use: no RISK FACTORS HISTORY OF: Surgery to Spine/Hip(right/left)/Wrist (right/left): no EXAM MEASUREMENTS: Bone mineral densitometry was performed using the [employer] System. Bone mineral density as measured about the Lumbar spine is: ----- L1-L4(G/cm2): 1.359 T Score Values are as follows: ----- L1: 0.0 ----- L2: 0.8 ----- L3: 3.1 ----- L4: 1.9 ----- L1-L4: 1.5 Z Score Values are as follows: ----- L1: 1.4 ----- L2: 2.2 ----- L3: 4.5 ----- L4: 3.2 ----- L1-L4: 2.9 Bone mineral density has: decreased -2.4 % since study of: 05.25.2022 Bone mineral density about the R hip (g/cm2): 0.711 Bone mineral density about the L hip (g/cm2): 0.719 T Score values are as follows: -----R Neck: -2.5 -----L Neck: -2.2 -----R Total: -2.4 -----L Total: -2.3 Z Score values are as follows: -----R Neck: -0.6 -----L Neck: -0.3 -----R Total: -0.6 -----L Total: -0.5 Bone mineral density has: decreased -4.7 % since study of: 13.2021 FRAX%s: The graph provided illustrates a 25.4% chance for a major osteoporotic fx and a 8.3% chance f or the hips probability for fx in 10 years time. IMPRESSION: Osteopenia (T Score between -2.5 and -1). There is slightly increased risk of fracture and the patient may be considered for treatment. Re-Screen 2-5 years. NOTE: T-SCORE=SD OF THE YOUNG ADULT MEAN. [facility], , 08/21/2024 8:36 AM
--- NOTE | 2024-08-21 12:31 | MM ---
Reason for Exam: Screening (asymptomatic). Last mammogram was performed 2 year(s) and 5 month(s) ago. Patient History: Menarche at age 17. First Full-Term at age 23. Left ovary removed at age 44. Right ovary removed at age 44. Hysterectomy at age 43. Postmenopausal. Estrogen, starting at age 44 for 15 years. Risk Values: Luciana 5 year model risk: 1.3%. NCI Lifetime model risk: 1.7%. Prior Study Comparison: 03/22/2017 Bilateral Screening Mammogram, [facility]. 08/14/2018 Bilateral Screening Mammogram, [facility]. 03/18/2022 Bilateral Screening Mammogram, [facility]. Tissue Density: There are scattered areas of fibroglandular density. Findings: Analyzed By CAD. There is no suspicious group of microcalcifications or new suspicious mass in either breast. Overall Assessment: Benign, BI-RAD 2 Management: Screening Mammogram of both breasts in 1 year. . Patient should continue monthly self-breast exams. A clinical breast exam by your physician is recommended on an annual basis. This exam should not preclude additional follow-up of suspicious palpable abnormalities. Note on Luciana scores and lifetime risk: 1. A Luciana score greater than 3% is considered moderate risk. If this is the case, consider specialist referral to assess eligibility for a risk reducing agent. 2. If overall lifetime risk for the development of breast cancer is 20% or higher, the patient may qualify for future screening with alternating mammogram and breast MRI. [facility], , 08/21/2024 12:28 PM. Electronically signed and approved by: Miko Young M.D. Radiologis
== END ==
LOC: WWCWWP 13:52
PROVIDERS: ATTEND Obstetrics & Gynecology
DX: Z12.31 Encounter for screening mammogram for malignant neoplasm of breast (principal); R92.8 Other abnormal and inconclusive findings on diagnostic imaging of breast; R92.323 Mammographic fibroglandular density, bilateral breasts; M81.8 Other osteoporosis without current pathological fracture; Z90.722 Acquired absence of ovaries, bilateral; Z90.710 Acquired absence of both cervix and uterus; Z78.0 Asymptomatic menopausal state; Z91.048 Other nonmedicinal substance allergy status
CPT/HCPCS: 77063; 77067; 77080

== ENCOUNTER 2024-10-15 08:26 | Day surgery (SDC) | payer MEDICARE ==
[2024-10-08 11:19] VITALS: BMI 34.7
[~2024-10-15 08:26] MED LIST changes: -DOBUTamine DRIP for NUC MED 500 MG in DEXTROSE/WATER 1 250ML.BAG IV PRN; +LACTATED RINGERS 1,000 ML IV SCH
[2024-10-15] MEDS: IV FLUID CONTINUATION 1,000 ML IV ONE (09:00)
[2024-10-15 09:13] VITALS: RESP 16; TEMP 98
[2024-10-15] MEDS ORDERED: LIDOCAINE 1% INJ 10MG/ML (20 ML MDV) ONE (10:13)
[2024-10-15] MEDS ORDERED: PROPOFOL 10 MG/ML 20 ML VIAL IV ONE (10:13)
--- NOTE | 2024-10-15 10:20 | P.GSHP ---
History of Present Illness H&P Date: 10/15/24 Chief Complaint: GERD, dysphagia, screening 84-year-old female here for upper and lower endoscopy. Patient has been having issues with dysphagia to solid foods occasionally. Patient with history of previous colon resection for colovesical fistula. Last colonoscopy 10 years ago. Past Medical History Past Medical History: Asthma, Coronary Artery Disease (CAD), Myocardial Infarction ([place]), Skin Disorder Additional Past Medical History / Comment(s): [place] April 2023. Psoriasis. 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 Last Myocardial Infarction Date:: 2022 History of Any Multi-Drug Resistant Organisms: None Reported Past Surgical History: Appendectomy, Bowel Resection, Heart Catheterization With Stent, Hysterectomy Additional Past Surgical History / Comment(s): PRECIOUS 1981, BSO in 1983. Cystocele and rectocele repairs in 1999. 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 Colonoscopy 2013 (4th). Cardiac stent placed April 2023. Eye surgery.cataracts Additional Past Anesthesia/Blood Transfusion Reaction / Comment(s): shaking with spinal block. no blood transfusion Date of Last Stent Placement:: 2022 Smoking Status: Never smoker - Past Family History Mother Additional Family Medical History / Comment(s): FROM A "BLOOD CLOT" after hip replacement Father Family Medical History: Congestive Heart Failure (CHF), Diabetes Mellitus Sister(s) Family Medical History: CVA/TIA Additional Family Medical History / Comment(s): Brain aneurysm. . Medications and Allergies Home Medications Medication Instructions Recorded Confirmed Type Aspirin 81 mg PO DAILY 08/22/14 10/15/24 History allopurinoL [Allopurinol] 300 mg PO DAILY 08/22/14 10/15/24 History Albuterol Sulfate [Albuterol 2 puff PO RT-Q6H PRN 06/06/23 10/15/24 History Sulfate Hfa] Cholecalciferol [Vitamin D3 (25 25 mcg PO DAILY 06/06/23 10/15/24 History Mcg = 1000 Iu)] Cyanocobalamin (Vitamin B-12) 1,000 mcg PO DAILY 06/06/23 10/15/24 History [Vitamin B-12] Lansoprazole [Prevacid] 30 mg PO DAILY 06/06/23 10/15/24 History Multivitamins, Thera [Multivitamin 1 tab PO DAILY 06/06/23 10/15/24 History (formulary)] Atorvastatin [Lipitor] 80 mg PO HS #90 tab 06/09/23 10/15/24 Rx Clopidogrel [Plavix] 75 mg PO DAILY #90 tablet 06/09/23 10/15/24 Rx Losartan [Cozaar] 25 mg PO HS #90 tab 06/09/23 10/15/24 Rx Metoprolol Tartrate [Lopressor] 25 mg PO BID #180 tablet 06/09/23 10/15/24 Rx Nitroglycerin Sl Tabs [Nitrostat] 0.4 mg SUBLINGUAL Q5M PRN #100 tab 06/09/23 10/15/24 Rx Furosemide [Lasix] 20 mg PO DAILY 08/20/24 10/15/24 History Isosorbide Dinitrate 30 mg PO DAILY 08/20/24 10/15/24 History [place]-3/Dha/Epa/Fish Oil [[place]-3 1 each PO DAILY 10/08/24 10/15/24 History Fish Oil 1,000 mg Sfgl] Allergies Allergy/AdvReac Type Severity Reaction Status Date / Time adhesive Allergy Rash/Hives Verified 10/15/24 09:00 Surgical - Exam Vital Signs Temp Pulse Resp BP Pulse Ox 98 F 102 H 16 124/74 91 L 10/15/24 09:04 10/15/24 09:04 10/15/24 09:04 10/15/24 09:04 10/15/24 09:04 Physical exam: General: Well-developed, well-nourished HEENT: Normocephalic, sclerae nonicteric Abdomen: Nontender, nondistended Extremities: No edema Neuro: Alert and oriented Assessment and Plan (1) Dysphagia Narrative/Plan: Will proceed with upper and lower endoscopy Current Visit: Yes Status: Acute Code(s): R13.10 - DYSPHAGIA, UNSPECIFIED SNOMED Code(s): 87118881
--- NOTE | 2024-10-15 10:36 | P.PCN ---
Date of Procedure: 10/15/24 Procedure(s) Performed: PREOPERATIVE DIAGNOSIS: GERD, dysphagia, colon cancer screening POSTOPERATIVE DIAGNOSIS: Gastritis, descending colon polyp x 2, diverticulosis PROCEDURE: 1. EGD with biopsy 2. Colonoscopy with snare polypectomy and biopsy ANESTHESIA: MAC SURGEON: Otilio Anglin M.D. SPECIMENS: Antrum ENDOSCOPIC PROCEDURE: The patient was on the endoscopy table in the left decubitus position. The Olympus gastroscope was inserted into the oropharynx and passed under direct visualization to the region of the third portion of the duodenum. From that point the scope was slowly withdrawn inspecting all surfaces carefully. There were no neoplastic inflammatory or polypoid lesions throughout the duodenum. The pylorus was widely patent. The stomach was carefully inspected. There was mild gastritis present. A biopsy of the antrum took place to rule out H. pylori. Retroflexion revealed a normal hiatus. The esophagus was then carefully examined. There were no neoplastic inflammatory or polypoid lesions throughout the visualized esophagus. The patient was kept on the endoscopy table in the left decubitus position. The Olympus colonoscope was inserted into the anus and passed under direct visualization to the base of the cecum. The appendiceal orifice was visualized. From that point the scope was slowly withdrawn inspecting all surfaces carefully. There were no neoplastic inflammatory or polypoid lesions throughout the cecum, ascending, and transverse colon. In the descending colon proximal to our anastomosis there were 2 small polyps 1 was removed using the cold biopsy forceps. The other was removed using the snare with cautery technique. The anastomosis was widely patent. The rectum appeared normal. The patient had mild scattered diverticulosis. Digital rectal examination was normal. The patient was taken to the recovery room in stable condition per anesthesia guidelines. RECOMMENDATIONS: Await biopsy results. No obvious etiology for the patient's dysphagia complaints. If symptoms persist consider modified barium swallow. Will contact patient with timing of next colonoscopy.
[2024-10-15 10:56] VITALS: BP 92/61; PULSE 63
== END 2024-10-15 11:16 | disposition home or self-care (01) ==
LOC: ORWHC2ENDO 08:26
PROVIDERS: ATTEND Surgery
DX: Z12.11 Encounter for screening for malignant neoplasm of colon (principal); D12.4 Benign neoplasm of descending colon; K57.30 Diverticulosis of large intestine without perforation or abscess without bleeding; K21.9 Gastro-esophageal reflux disease without esophagitis; K29.50 Unspecified chronic gastritis without bleeding; R13.10 Dysphagia, unspecified; I10 Essential (primary) hypertension; I25.10 Atherosclerotic heart disease of native coronary artery without angina pectoris; I25.2 Old myocardial infarction; Z95.5 Presence of coronary angioplasty implant and graft; J45.909 Unspecified asthma, uncomplicated; Z79.82 Long term (current) use of aspirin; Z79.02 Long term (current) use of antithrombotics/antiplatelets; Z79.899 Other long term (current) drug therapy; Z86.73 Personal history of transient ischemic attack (TIA), and cerebral infarction without residual deficits; Z90.49 Acquired absence of other specified parts of digestive tract; Z91.048 Other nonmedicinal substance allergy status
CPT/HCPCS: 88305; 45380; 45385; 43239; J2003; J2704

== ENCOUNTER → 2025-01-07 | Outpatient (CLI) | payer MEDICARE ==
--- NOTE | 2025-01-07 18:10 | CT ---
EXAMINATION TYPE: CT chest wo con CT DLP: 403.7 mGycm, Automated exposure control for dose reduction was used. DATE OF EXAM: 01/07/2025 5:59 PM COMPARISON: Chest radiograph 06/06/2023, CTA chest 06/06/2023 CLINICAL INDICATION:Female, 84 years old with history of R91.8 ABNORMAL LUNG FIELD; PH[facility], Went to PCP for cough and had an abnormal finding on chest xray. TECHNIQUE: Multiple axial images were obtained through the chest without IV contrast. Lack of IV or o ral contrast limits evaluation of solid and hollow organ viscera. . Coronal and sagittal reformats re viewed. FINDINGS: LUNGS/ PLEURA: No pleural effusion or pneumothorax. Minimal atelectasis within the medial aspect of the right lower lobe and lingula. Linear atelectasis within the medial aspect of the right upper lobe . Minimal right lung base subsegmental atelectasis. No suspicious pulmonary nodule or mass. AIRWAY: Patent and unremarkable.. HEART: The heart is mildly increased in size..No pericardial effusion. Mild to moderate coronary athe rosclerotic calcifications. Most prominent along the circumflex artery. MEDIASTINUM: No gross evidence of adenopathy. VASCULATURE: No aortic aneurysm. Mild atherosclerotic calcification of the aorta and its branches. M ildly prominent main pulmonary artery measuring up to 3.3 cm in diameter. MUSCULOSKELETAL: No acute osseous abnormalities. Bilateral shoulder arthropathy. Moderate multilevel degenerative disc disease with disc space narrowing, endplate sclerosis, anterior osteophytosis, and vacuum disc disease. SOFT TISSUES/LYMPH NODES: Unremarkable. LOWER NECK: No significant findings. UPPER ABDOMEN: Splenic atrophy versus residual splenule. Stable right renal upper pole 2.1 cm cyst. IMPRESSION: 1. No acute thoracic process. 2. Few scattered regions of linear/subsegmental atelectasis versus scarring. 3. Mildly dilated main pulmonary artery which can be seen with pulmonary arterial hypertension. [facility], , 01/07/2025 6:08 PM
== END | disposition home or self-care (01) ==
LOC: RADCTMAIN 17:32
PROVIDERS: ATTEND Family Medicine
DX: I28.1 Aneurysm of pulmonary artery (principal); R91.8 Other nonspecific abnormal finding of lung field
CPT/HCPCS: 71250

== ENCOUNTER → 2025-01-14 | Outpatient (CLI) | payer MEDICARE ==
--- NOTE | 2025-01-14 16:03 | FL ---
EXAMINATION TYPE: FL barium swallow DATE OF EXAM: 01/14/2025 3:44 PM COMPARISON: Correlation CT chest 01/07/2025 CLINICAL INDICATION: Female, 85 years old with history of R13.10 DYSPHAGIA, difficulty swallowing and food sticking in the throat Total Fluoroscopy Time: 1 minute 47 seconds Total Dose: 150 mGycm2 43 images obtained. FINDINGS: Towards the end of the exam, we note that silent aspiration has occurred into the upper tra los. There is anterior endplate spondylosis especially at C5-C6 and C6-C7 mildly impressing along the back wall of the cervical esophagus but without obstruction. The thoracic portion has a normal course and caliber. However, there is pronounced dysmotility with s tagnating contrast when the patient is prone/supine and occasional moderate tertiary peristaltic wave s. Delayed clearance of contrast from the esophagus when the patient is upright. The mucosa is normal and no persistent filling defect is encountered. No fixed narrowing. No sizable hiatal hernia. Unable to elicit any gastroesophageal reflux during the course of the study . IMPRESSION: 1. Towards the end of the exam, we realize that there has been silent aspiration. Consider further sp eech pathology evaluation if indicated. 2. Presbyesophagus with stagnating contrast throughout the esophagus especially when the patient is p rocessed supine. 3. No stricture or discrete mucosal abnormality is seen. [facility], , 01/14/2025 4:01 PM
== END | disposition home or self-care (01) ==
LOC: RADFLMAIN 14:36
PROVIDERS: ATTEND Family Medicine
DX: K22.89 Other specified disease of esophagus (principal); R13.10 Dysphagia, unspecified
CPT/HCPCS: 74220

== ENCOUNTER → 2025-01-28 | Outpatient (CLI) | payer MEDICARE ==
--- NOTE | 2025-01-28 08:07 | US ---
EXAMINATION TYPE: US abdomen limited DATE OF EXAM: 01/28/2025 COMPARISON: CT 2024, CT 2013, US 2011 CLINICAL INDICATION: Female, 85 years old with history of R17 UNSPECIFIED JAUNDICE; Total bilirubin a khanh reference range. Hx appendectomy, colon surgery, spleen removed. TECHNIQUE: Grayscale and color Doppler imaging of the right upper quadrant. FINDINGS: EXAM MEASUREMENTS: Liver Length: 14.8 cm Gallbladder Wall: 0.22 cm CBD: 0.54 cm, color Doppler imaging was utilized to isolate the common bile duct for measurement. Right Kidney: 10.4 x 5.2 x 4.6 cm LMSW NOTES: Exam is limited due to gas. Pancreas: *Not visualized, obscured by gas Liver: Coarse in echotexture. Gallbladder: *Hyperechoic focus with posterior shadowing seen within: 1.2 x 1.3 x 0.6 cm. Evidence for sonographic Bailey's sign: No CBD: Appears wnl Right Kidney: [place] seen. *2 anechoic areas seen, larger is at the upper pole: 2.4 x 2.3 x 2.5 cm. IMPRESSION: Findings compatible with hepatic steatosis. Simple right renal cysts. [facility], , 01/28/2025 8:04 AM
== END | disposition home or self-care (01) ==
LOC: RADUSWWP 07:28
PROVIDERS: ATTEND Family Medicine
DX: N28.1 Cyst of kidney, acquired (principal); R17 Unspecified jaundice
CPT/HCPCS: 76705

== ENCOUNTER → 2025-03-24 | Outpatient (CLI) | payer MEDICARE ==
[2025-03-24 14:29] VITALS: BP 121/79; PULSE 98; RESP 16; TEMP 97.9
--- NOTE | 2025-03-24 15:09 | P.SLEEP ---
History of Present Illness DATE: 03/24/2025 CONSULTATION/NEW PATIENT EVALUATION HISTORY OF PRESENT ILLNESS/SLEEP-WAKE EVALUATION: 85-year-old lady had been e valuated in the sleep center for possible obstructive sleep apnea hypopnea syndrome. SLEEP SCHEDULE: Usually sleep schedule: 12 AM until 8:30 AM. FALLING ASLEEP: No significant problems with falling asleep. DURING SLEEP: Patient snores and wakes up from sleep with nocturia. Positive history of dry mouth, restless leg symptoms and occasional leg cramps no history of hypnogogical hallucinations, sleep paralysis, or cataplexy. DURING THE DAY/WAKE STATE: Sleepiness. Hoffman sleepiness scale is increased to 11. Patient may take 2 naps during the day. PAST MEDICAL HISTORY: Hypertension, coronary artery disease, gout, hyperlipidemia, asthma, swelling of the leg, diabetes mellitus, mini stroke. PAST SURGICAL HISTORY: Stent insertion to coronary artery, splenectomy, colon resection. MEDICATIONS: Please see below. SOCIAL HISTORY: Please see below. FAMILY HISTORY: Please see below. REVIEW OF SYSTEMS: Snoring, awakenings from sleep, sleepiness during the day. No fevers. No double vision. No recent chest pain. No shortness of breath. No abdominal pain. No bleeding episodes. No blood in urine. No seizure episodes. PHYSICAL EXAMINATION: GENERAL: A pleasant patient without any distress. VITAL SIGNS: Please see below, weight 170 pounds, BMI 35.5. HEENT: PERRLA, EOMI. Evaluation of oropharynx showed tongue protrudes midline, low position of soft palate Mallampati 4. NECK: Supple. No JVD. Thyroid is not palpable. 14 inches in circumference. LUNGS: Clear to percussion and to auscultation. Good air exchange. No wheezing or rhonchi. HEART: S1, S2 regular. No murmurs, gallops or rubs. ABDOMEN: Soft and nontender. Bowel sounds are present. No organomegaly appreciated. EXTREMITIES: No clubbing or cyanosis. CHAIN MENDER: Awake, alert, and oriented x3. Cranial nerves 2 to 7 intact. There is no fasciculation or atrophy noted. No focal deficits observed. ASSESSMENT: 1. Snoring, extremely low position of soft palate Mallampati 4, sleepiness during the day with Hoffman Sleepiness Scale increased to 11. Obstructive sleep apnea hypopnea syndrome. 2. Hypertension. 3. Coronary artery disease, status post heart attack 2 years ago, status post stent insertion. 4. Restless leg symptoms. 5 history of leg cramps during sleep. 6 . History of mini stroke. 7. Gout. 8. Status post colon resection and splenectomy. 9 . Diabetes mellitus, diagnosed recently, hemoglobin A1c around 7.1 according to patient. 10. Hyperlipidemia. 11. Status post hysterectomy. 12. Obesity, BMI 35.5 PLAN: 1. Polysomnography for evaluation of patient's breathing during sleep. 2. Following plan after reading sleep study 3. Preferable position during sleep on the side. 4. No driving if patient feels any sleepiness. Patient is aware of civil and criminal liability for unsafe driving. 5. Sleep hygiene with regular sleep time for at least 7.5-8 hours. 6. Watching and losing weight. Thank you very much for referring this patient for consultation. Sincerely, Josafat Brown MD, PhD, FAASM. Diplomat of [place] [employer], Sleep Medicine Board by [place] [employer] [place] [employer] [facility] [place] cc: Rj Parra MD Past Medical History Past Medical History: Asthma, Coronary Artery Disease (CAD), Diabetes Mellitus, Myocardial Infarction (CA), Skin Disorder Additional Past Medical History / Comment(s): CA April 2023. Psoriasis. Past [employer] history: She did use HRT for several years and this was discontinued in 1999. Last Myocardial Infarction Date:: 2022 History of Any Multi-Drug Resistant Organisms: None Reported Past Surgical History: Appendectomy, Bowel Resection, Heart Catheterization With Stent, Hysterectomy Additional Past Surgical History / Comment(s): PRECIOUS 1981, BSO in 1983. Cystocele and rectocele repairs in 1999. 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 Colonoscopy 2013 (4th). Cardiac stent placed April 2023. Eye surgery.cataracts Additional Past Anesthesia/Blood Transfusion Reaction / Comment(s): shaking with spinal block. no blood transfusion Date of Last Stent Placement:: 2022 Past Psychological History: Anxiety Additional Psychological History / Comment(s): from new meds Smoking Status: Never smoker Past Alcohol Use History: Rare Past Drug Use History: None Reported - Past Family History Mother Additional Family Medical History / Comment(s): FROM A "BLOOD CLOT" after hip replacement Father Family Medical History: Congestive Heart Failure (CHF), Diabetes Mellitus Sister(s) Family Medical History: CVA/TIA Additional Family Medical History / Comment(s): Brain aneurysm. . Medications and Allergies Home Medications Medication Instructions Recorded Confirmed Type Aspirin 81 mg PO DAILY 08/22/14 03/24/25 History allopurinoL [Allopurinol] 300 mg PO DAILY 08/22/14 03/24/25 History Albuterol Sulfate [Albuterol 2 puff PO RT-Q6H PRN 06/06/23 03/24/25 History Sulfate Hfa] Cholecalciferol [Vitamin D3 (25 25 mcg PO DAILY 06/06/23 03/24/25 History Mcg = 1000 Iu)] Cyanocobalamin (Vitamin B-12) 1,000 mcg PO DAILY 06/06/23 03/24/25 History [Vitamin B-12] Lansoprazole [Prevacid] 30 mg PO DAILY 06/06/23 03/24/25 History Multivitamins, Thera [Multivitamin 1 tab PO DAILY 06/06/23 03/24/25 History (formulary)] Atorvastatin [Lipitor] 80 mg PO HS #90 tab 06/09/23 03/24/25 Rx Clopidogrel [Plavix] 75 mg PO DAILY #90 tablet 06/09/23 03/24/25 Rx Losartan [Cozaar] 25 mg PO HS #90 tab 06/09/23 03/24/25 Rx Metoprolol Tartrate [Lopressor] 25 mg PO BID #180 tablet 06/09/23 03/24/25 Rx Nitroglycerin Sl Tabs [Nitrostat] 0.4 mg SUBLINGUAL Q5M PRN #100 tab 06/09/23 03/24/25 Rx Furosemide [Lasix] 20 mg PO DAILY 08/20/24 03/24/25 History Isosorbide Dinitrate 30 mg PO DAILY 08/20/24 03/24/25 History [place]-3/Dha/Epa/Fish Oil [[place]-3 1 each PO DAILY 10/08/24 03/24/25 History Fish Oil 1,000 mg Sfgl] Allergies Allergy/AdvReac Type Severity Reaction Status Date / Time adhesive Allergy Rash/Hives Verified 10/15/24 09:00 Physical Exam Vitals: Vital Signs Temp Pulse Resp BP Pulse Ox 03/24/25 14:26 97.9 F 98 16 121/79 91 L Intake and Output 03/24/25 03/24/25 03/24/25 06:59 14:59 22:59 Other: Weight 77.111 kg Sleep Note - Sleep Data ESS Total: 11 - Sleep Note Sleep Note: Temperature: 97.9 F Pulse Rate: 98 Respiratory Rate: 16 Blood Pressure: 121/79 SpO2: 91 Height: 4 ft 10 in Weight: 77.111 kg BMI: Neck Circumference: 14
== END ==
LOC: 3 N SLEEP 13:51
PROVIDERS: ATTEND Internal Medicine
DX: G47.33 Obstructive sleep apnea (adult) (pediatric) (principal); I10 Essential (primary) hypertension; I25.10 Atherosclerotic heart disease of native coronary artery without angina pectoris; M10.9 Gout, unspecified; E11.9 Type 2 diabetes mellitus without complications; E78.5 Hyperlipidemia, unspecified; E66.9 Obesity, unspecified; Z95.5 Presence of coronary angioplasty implant and graft; Z87.39 Personal history of other diseases of the musculoskeletal system and connective tissue; Z86.73 Personal history of transient ischemic attack (TIA), and cerebral infarction without residual deficits; Z98.890 Other specified postprocedural states; Z68.35 Body mass index [BMI] 35.0-35.9, adult; Z88.8 Allergy status to other drugs, medicaments and biological substances
CPT/HCPCS: 99211

== ENCOUNTER 2025-03-27 19:39 | Outpatient (CLI) | payer MEDICARE | END 2025-03-28 06:30 | disposition home or self-care (01) | LOC: 3 N SLEEP 19:39 | PROVIDERS: ATTEND Internal Medicine | DX: G47.33 Obstructive sleep apnea (adult) (pediatric) (principal); Z91.048 Other nonmedicinal substance allergy status | CPT/HCPCS: 95810 ==

== ENCOUNTER 2025-05-06 11:45 | Inpatient (IN) | payer MEDICARE ==
--- NOTE | 2025-05-06 12:40 | ED ---
SOB HPI - General Source: patient, family, RN notes reviewed Mode of arrival: wheelchair Limitations: no limitations <Ashlyn Negro - Last Filed: 05/06/25 12:39> - General Source: patient, RN notes reviewed <Ayla Hinds - Last Filed: 05/06/25 18:54> - General Chief Complaint: Shortness of Breath Stated Complaint: Oxygen level is low Time Seen by Provider: 05/06/25 12:39 - History of Present Illness Initial Comments: Quick note: 85-year-old female presented the ER for evaluation of low oxygen saturations. Patient sent by PCP for further evaluation. Patient does not typically wear nasal cannula oxygen. She currently is denying chest pain. Upon my evaluation patient stating she feels like she was going to "pass out". (Ashlyn Negro) 85-year-old female presenting to the ER for evaluation of low oxygen. States she was sent by her PCP for further evaluation due to hypoxia. Patient states over the past few days she has been experiencing nasal congestion, dry cough, and lightheadedness. She does not typically wear oxygen at home. She does have a history of asthma, CAD, diabetes, and hypertension. Denies chest pain. (Ayla Hinds) - Related Data Home Medications Medication Instructions Recorded Confirmed Aspirin 81 mg PO DAILY 08/22/14 05/06/25 allopurinoL [Allopurinol] 300 mg PO DAILY 08/22/14 05/06/25 Albuterol Sulfate [Albuterol 2 puff INHALATION RT-QID PRN 06/06/23 05/06/25 Sulfate Hfa] Lansoprazole [Prevacid] 30 mg PO DAILY 06/06/23 05/06/25 Multivitamins, Thera [Multivitamin 1 tab PO DAILY 06/06/23 05/06/25 (formulary)] Furosemide [Lasix] 20 mg PO DAILY 08/20/24 05/06/25 Albuterol Nebulized [Ventolin 2.5 mg INHALATION RT-Q4H PRN 05/06/25 05/06/25 Nebulized] Empagliflozin [Jardiance] 25 mg PO DAILY 05/06/25 05/06/25 Ipratropium-Albuterol Nebulize 3 ml INHALATION RT-Q4H PRN 05/06/25 05/06/25 [Duoneb 0.5 mg-3 mg/3 ml Soln] Isosorbide Mononitrate ER [Imdur] 30 mg PO DAILY 05/06/25 05/06/25 [place] 3-6-9 1030mg 1,030 mg PO DAILY 05/06/25 05/06/25 Vitamin B-12(Unknown Dose) 1 tab PO DAILY 05/06/25 05/06/25 Vitamin D3(Unknown Dose) 1 tab PO DAILY 05/06/25 05/06/25 Previous Rx's Medication Instructions Recorded Atorvastatin [Lipitor] 80 mg PO HS #90 tab 06/09/23 Clopidogrel [Plavix] 75 mg PO DAILY #90 tablet 06/09/23 Losartan [Cozaar] 25 mg PO HS #90 tab 06/09/23 Metoprolol Tartrate [Lopressor] 25 mg PO BID #180 tablet 06/09/23 Nitroglycerin Sl Tabs [Nitrostat] 0.4 mg SUBLINGUAL Q5M PRN #100 tab 06/09/23 Allergies Allergy/AdvReac Type Severity Reaction Status Date / Time adhesive Allergy Rash/Hives Verified 05/06/25 16:19 Review of Systems ROS Other: All systems not noted in ROS Statement are negative. <Ashlyn Negro - Last Filed: 05/06/25 12:39> ROS Other: All systems not noted in ROS Statement are negative. <Ayla Hinds - Last Filed: 05/06/25 18:54> ROS Statement: Those systems with pertinent positive or pertinent negative responses have been documented in the HPI. Past Medical History Past Medical History: Asthma, Coronary Artery Disease (CAD), Diabetes Mellitus, Myocardial Infarction (HI), Skin Disorder Additional Past Medical History / Comment(s): HI April 2023. Psoriasis. 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 Last Myocardial Infarction Date:: 2022 History of Any Multi-Drug Resistant Organisms: None Reported Past Surgical History: Appendectomy, Bowel Resection, Heart Catheterization With Stent, Hysterectomy Additional Past Surgical History / Comment(s): PRECIOUS 1981, BSO in 1983. Cystocele and rectocele repairs in 1999. 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 Colonoscopy 2013 (4th). Cardiac stent placed April 2023. Eye surgery.cataracts Additional Past Anesthesia/Blood Transfusion Reaction / Comment(s): shaking with spinal block. no blood transfusion Date of Last Stent Placement:: 2022 Past Psychological History: Anxiety Smoking Status: Never smoker Past Alcohol Use History: Rare Past Drug Use History: None Reported - Past Family History Mother Additional Family Medical History / Comment(s): FROM A "BLOOD CLOT" after hip replacement Father Family Medical History: Congestive Heart Failure (CHF), Diabetes Mellitus Sister(s) Family Medical History: CVA/TIA Additional Family Medical History / Comment(s): Brain aneurysm. . <Ashlyn Negro - Last Filed: 05/06/25 12:39> General Exam Limitations: no limitations <Ashlyn Negro - Last Filed: 05/06/25 12:39> General appearance: alert, in no apparent distress Head exam: Present: atraumatic, normocephalic, normal inspection Eye exam: Present: normal appearance, PERRL, EOMI. Absent: scleral icterus, conjunctival injection, periorbital swelling ENT exam: Present: normal exam, mucous membranes moist Neck exam: Present: normal inspection. Absent: tenderness, meningismus, lymphadenopathy Respiratory exam: Present: normal lung sounds bilaterally. Absent: respiratory distress, wheezes, rales, rhonchi, stridor Cardiovascular Exam: Present: regular rate, normal rhythm, normal heart sounds. Absent: systolic murmur, diastolic murmur, rubs, gallop, clicks Neurological exam: Present: alert, oriented X3 Psychiatric exam: Present: normal affect, normal mood Skin exam: Present: warm, dry, intact, normal color. Absent: rash <Ayla Hinds - Last Filed: 05/06/25 18:54> - General Exam Comments Initial Comments: Visual Physical Exam Vital signs reviewed General: Ill-appearing nontoxic, no acute distress. Head: Normocephalic, atraumatic Eyes: PERRLA, EOMI ENT: Airway patent Chest: Nonlabored breathing Skin: No visual rash, normal skin tone Neuro: Alert Musculoskeletal: No gross abnormalities (Ashlyn Negro) Course Vital Signs 05/06/25 05/06/25 05/06/25 12:07 12:10 14:43 Temperature 98.6 F Pulse Rate 89 79 Respiratory 18 18 Rate Blood Pressure 109/67 112/70 O2 Sat by Pulse 90 L 88 L 96 Oximetry 05/06/25 05/06/25 16:57 18:33 Temperature Pulse Rate 77 68 Respiratory 18 18 Rate Blood Pressure 113/63 137/72 O2 Sat by Pulse 99 99 Oximetry Medical Decision Making <Ashlyn Negro - Last Filed: 05/06/25 12:39> - Lab Data Result diagrams: 05/06/25 14:15 05/06/25 14:15 - EKG Data -: EKG Interpreted by Me <GuzmanAyla - Last Filed: 05/06/25 18:54> - Medical Decision Making I performed the quick note portion of this chart. Electronically signed by Ashlyn Negro PA-C (Ashlyn Negro) Was pt. sent in by a medical professional or institution (KHADIJAH Marinelli, PIERCING SPECIALIST, urgent care, hospital, or shelter...) When possible be specific @ -No Did you speak to anyone other than the patient for history (EMS, parent, family, police, friend...)? What history was obtained from this source @ -No Did you review nursing and triage notes (agree or disagree)? Why? @ -I reviewed and agree with nursing and triage notes Were old charts reviewed (outside hosp., previous admission, EMS record, old EKG, old radiological studies, urgent care reports/EKG's, shelter records)? Report findings @ -No old charts were reviewed Differential Diagnosis (chest pain, altered mental status, abdominal pain women, abdominal pain men, vaginal bleeding, weakness, fever, dyspnea, syncope, headache, dizziness, GI bleed, back pain, seizure, CVA, palpatations, mental health, musculoskeletal)? @ -Differential Dyspnea: Coronary syndrome, arrhythmia, tamponade, asthma, COPD, pulmonary embolism, pneumonia, pneumothorax, pulmonary effusion, anaphylaxis, diabetic ketoacidosis, flailed chest, pulmonary contusion, diaphragmatic rupture, anemia, neuromuscular, this is not meant to be an all-inclusive list. EKG interpreted by me (3pts min.). @ -As above X-rays interpreted by me (1pt min.). @ -Chest x-ray reveals no acute process CT interpreted by me (1pt min.). @ -CT angio chest negative for PE U/S interpreted by me (1pt. min.). @ -None done What testing was considered but not performed or refused? (CT, X-rays, U/S, labs)? Why? @ -None What meds were considered but not given or refused? Why? @ -None Did you discuss the management of the patient with other professionals (professionals i.e. , PA, PIERCING SPECIALIST, lab, RT, psych nurse, social work specialist, lumber material handler, teacher, air defence officer, cyanide case hardener)? Give summary @ -I spoke with sound physicians who accepts admission for COVID-19 with hypoxia Was smoking cessation discussed for >3mins.? @ -No Was critical care preformed (if so, how long)? @ -No Were there social determinants of health that impacted care today? How? (Homelessness, low income, unemployed, alcoholism, drug addiction, transpor tation, low edu. Level, literacy, decrease access to med. care, long-term, rehab)? @ -No Was there de-escalation of care discussed even if they declined (Discuss DNR or withdrawal of care, Hospice)? DNR status @ -No What co-morbidities impacted this encounter? (DM, HTN, Smoking, COPD, CAD, Cancer, CVA, ARF, Chemo, Hep., AIDS, mental health diagnosis, sleep apnea, morbid obesity)? @ -None Was patient admitted / discharged? Hospital course, mention meds given and route, prescriptions, significant lab abnormalities, going to OR and other pertinent info. @ -Admitted. 85-year-old female sent from PCP for hypoxia. Patient endorses shortness of breath over the past week. Patient was satting 90 to 88% on room air, was placed on 4 L nasal cannula and is satting 99%. Patient is afebrile, nontachycardic. Laboratory studies remarkable for elevated D-dimer of 6.5. Patient is positive for COVID-19. Chest x-ray reveals no acute process. CT angio chest negative for PE. Patient will be admitted to medicine for COVID-19 with hypoxia requiring 4 L nasal cannula. Patient was given dose of steroids and routine DuoNeb treatments were ordered. Pulmonology consulted. Case was discussed with my ED attending Dr. Ryan. Undiagnosed new problem with uncertain prognosis? @ -No Drug Therapy requiring intensive monitoring for toxicity (Heparin, Nitro, Insulin, Cardizem)? @ -No Were any procedures done? @ -No Diagnosis/symptom? @ -COVID-19 Acute, or Chronic, or Acute on Chronic? @ -Acute Uncomplicated (without systemic symptoms) or Complicated (systemic symptoms)? @ -Complicated Side effects of treatment? @ -No Exacerbation, Progression, or Severe Exacerbation? @ -No Poses a threat to life or bodily function? How? (Chest pain, USA, HI, pneumonia, PE, COPD, DKA, ARF, appy, cholecystitis, CVA, Diverticulitis, Homicidal, Suicidal, threat to staff... and all critical care pts) @ -Yes (Ayla Hinds) - Lab Data Lab Results 05/06/25 05/06/25 05/06/25 Range/Units 14:15 14:15 14:15 WBC 8.30 (4.50-10.00) 10*3/uL RBC 4.01 L (4.10-5.20) 10*6/uL Hgb 13.0 (12.0-15.0) g/dL Hct 40.3 (37.2-46.3) % MCV 100.5 H (80.0-97.0) fL MCH 32.4 H (27.0-32.0) pg MCHC 32.3 (32.0-37.0) g/dL Plt Count 211 (140-440) 10*3/uL MPV 10.1 (9.5-12.2) fL Immature Gran % (Auto) 0.4 % Neutrophils % 66.3 % Lymphocytes % 17.1 % Monocytes % 15.1 % Eosinophils % 0.4 % Basophils % 0.7 % Immature Gran # 0.03 (0.00-0.04) 10*3/uL Neutrophils # 5.51 (1.80-7.70) 10*3/uL Lymphocytes # 1.42 (0.90-5.00) 10*3/uL Monocytes # 1.25 H (0.20-1.00) 10*3/uL Eosinophils # 0.03 L (0.04-0.35) 10*3/uL Basophils # 0.06 (0.00-0.10) 10*3/uL PT 11.1 (10.0-12.5) sec INR 1.0 (<1.2) APTT 21.4 L (22.0-30.0) sec D-Dimer (<0.60) mg/L FEU Sodium 139 (137-145) mmol/L Potassium 3.9 (3.5-5.1) mmol/L Chloride 103 (98-107) mmol/L Carbon Dioxide 31 H (22-30) mmol/L Anion Gap 5 mmol/L BUN 20 H (7-17) mg/dL Creatinine 1.11 H (0.52-1.04) mg/dL Est GFR (CKD-EPI)AfAm 53 (>60 ml/min/1.73 sqM) Est GFR (CKD-EPI)NonAf 46 (>60 ml/min/1.73 sqM) Glucose 127 H (74-99) mg/dL Plasma Lactic Acid Louie (0.7-2.0) mmol/L Calcium 9.5 (8.4-10.2) mg/dL Total Bilirubin 1.1 (0.2-1.3) mg/dL AST 30 (14-36) U/L ALT 19 (4-34) U/L Alkaline Phosphatase 121 (38-126) U/L Troponin I (0.000-0.034) ng/mL Total Protein 6.3 (6.3-8.2) g/dL Albumin 4.0 (3.5-5.0) g/dL Influenza Type A (PCR) (Not Detectd) Influenza Type B (PCR) (Not Detectd) RSV (PCR) (Not Detectd) SARS-CoV-2 (PCR) (Not Detectd) 05/06/25 05/06/25 05/06/25 Range/Units 14:15 14:15 14:15 WBC (4.50-10.00) 10*3/uL RBC (4.10-5.20) 10*6/uL Hgb (12.0-15.0) g/dL Hct (37.2-46.3) % MCV (80.0-97.0) fL MCH (27.0-32.0) pg MCHC (32.0-37.0) g/dL Plt Count (140-440) 10*3/uL MPV (9.5-12.2) fL Immature Gran % (Auto) % Neutrophils % % Lymphocytes % % Monocytes % % Eosinophils % % Basophils % % Immature Gran # (0.00-0.04) 10*3/uL Neutrophils # (1.80-7.70) 10*3/uL Lymphocytes # (0.90-5.00) 10*3/uL Monocytes # (0.20-1.00) 10*3/uL Eosinophils # (0.04-0.35) 10*3/uL Basophils # (0.00-0.10) 10*3/uL PT (10.0-12.5) sec INR (<1.2) APTT (22.0-30.0) sec D-Dimer 6.52 H (<0.60) mg/L FEU Sodium (137-145) mmol/L Potassium (3.5-5.1) mmol/L Chloride (98-107) mmol/L Carbon Dioxide (22-30) mmol/L Anion Gap mmol/L BUN (7-17) mg/dL Creatinine (0.52-1.04) mg/dL Est GFR (CKD-EPI)AfAm (>60 ml/min/1.73 sqM) Est GFR (CKD-EPI)NonAf (>60 ml/min/1.73 sqM) Glucose (74-99) mg/dL Plasma Lactic Acid Louie 1.3 (0.7-2.0) mmol/L Calcium (8.4-10.2) mg/dL Total Bilirubin (0.2-1.3) mg/dL AST (14-36) U/L ALT (4-34) U/L Alkaline Phosphatase (38-126) U/L Troponin I <0.012 (0.000-0.034) ng/mL Total Protein (6.3-8.2) g/dL Albumin (3.5-5.0) g/dL Influenza Type A (PCR) (Not Detectd) Influenza Type B (PCR) (Not Detectd) RSV (PCR) (Not Detectd) SARS-CoV-2 (PCR) (Not Detectd) 05/06/25 Range/Units 14:33 WBC (4.50-10.00) 10*3/uL RBC (4.10-5.20) 10*6/uL Hgb (12.0-15.0) g/dL Hct (37.2-46.3) % MCV (80.0-97.0) fL MCH (27.0-32.0) pg MCHC (32.0-37.0) g/dL Plt Count (140-440) 10*3/uL MPV (9.5-12.2) fL Immature Gran % (Auto) % Neutrophils % % Lymphocytes % % Monocytes % % Eosinophils % % Basophils % % Immature Gran # (0.00-0.04) 10*3/uL Neutrophils # (1.80-7.70) 10*3/uL Lymphocytes # (0.90-5.00) 10*3/uL Monocytes # (0.20-1.00) 10*3/uL Eosinophils # (0.04-0.35) 10*3/uL Basophils # (0.00-0.10) 10*3/uL PT (10.0-12.5) sec INR (<1.2) APTT (22.0-30.0) sec D-Dimer (<0.60) mg/L FEU Sodium (137-145) mmol/L Potassium (3.5-5.1) mmol/L Chloride (98-107) mmol/L Carbon Dioxide (22-30) mmol/L Anion Gap mmol/L BUN (7-17) mg/dL Creatinine (0.52-1.04) mg/dL Est GFR (CKD-EPI)AfAm (>60 ml/min/1.73 sqM) Est GFR (CKD-EPI)NonAf (>60 ml/min/1.73 sqM) Glucose (74-99) mg/dL Plasma Lactic Acid Louie (0.7-2.0) mmol/L Calcium (8.4-10.2) mg/dL Total Bilirubin (0.2-1.3) mg/dL AST (14-36) U/L ALT (4-34) U/L Alkaline Phosphatase (38-126) U/L Troponin I (0.000-0.034) ng/mL Total Protein (6.3-8.2) g/dL Albumin (3.5-5.0) g/dL Influenza Type A (PCR) Not Detected (Not Detectd) Influenza Type B (PCR) Not Detected (Not Detectd) RSV (PCR) Not Detected (Not Detectd) SARS-CoV-2 (PCR) Detected A (Not Detectd) - EKG Data EKG Comments: EKG reveals normal sinus rhythm with no acute ST changes. Ventricular rate 81 bpm, CO interval 158, QRS duration 82, QT/QTc 362/399 (Ayla Hinds) Disposition <Ashlyn Negro - Last Filed: 05/06/25 12:39> Time of Disposition: 18:54 <Ayla Hinds - Last Filed: 05/06/25 18:54> Clinical Impression: COVID-19, Hypoxia Disposition: ADMITTED IP TO THIS HOSP Referrals: Rj Parra MD [Primary Care Provider] - 1-2 days
[2025-05-06 14:30] LABS: Basophils # (A) 0.06 10*3/uL (0.00-0.10); Basophils % (A) 0.7 %; Eosinophils # (A) 0.03 10*3/uL (0.04-0.35); Eosinophils % (A) 0.4 %; HCT 40.3 % (37.2-46.3); Lymphocytes # (A) 1.42 10*3/uL (0.90-5.00); Lymphocytes % (A) 17.1 %; MCH 32.4 pg (27.0-32.0); MCHC 32.3 g/dL (32.0-37.0); MCV 100.5 fL (80.0-97.0); Mean Platelet Volume 10.1 fL (9.5-12.2); Monocytes # (A) 1.25 10*3/uL (0.20-1.00); Monocytes % (A) 15.1 %; Neutrophils # (A) 5.51 10*3/uL (1.80-7.70); Neutrophils % (A) 66.3 %; Platelet Count 211 10*3/uL (140-440); RBC 4.01 10*6/uL (4.10-5.20); RDW 14.5 % (11.5-14.5)
[2025-05-06 14:40] LABS: ALT 19 U/L (4-34); AST 30 U/L (14-36); African American GFR (CKD) 53 (>60 ml/min/1.73 sqM); Alkaline Phosphatase 121 U/L (38-126); Anion Gap 5 mmol/L; Blood Urea Nitrogen 20 mg/dL (7-17); Calcium 9.5 mg/dL (8.4-10.2); Carbon Dioxide 31 mmol/L (22-30); Chloride 103 mmol/L (98-107); Glucose 127 mg/dL (74-99); Non-African American GFR(CKD) 46 (>60 ml/min/1.73 sqM); Potassium 3.9 mmol/L (3.5-5.1); Sodium 139 mmol/L (137-145); Total Bilirubin 1.1 mg/dL (0.2-1.3); Total Protein 6.3 g/dL (6.3-8.2)
[2025-05-06 14:45] LABS: Prothrombin Time 11.1 sec (10.0-12.5)
--- NOTE | 2025-05-06 14:50 | XR ---
EXAMINATION TYPE: XR chest 2V DATE OF EXAM: 05/06/2025 2:27 PM COMPARISON: 06/06/2023 CLINICAL INDICATION: Female, 85 years old with history of difficulty breathing, TECHNIQUE: XR chest 2V view(s) obtained. FINDINGS: The heart size is normal. The pulmonary vasculature is normal. The lungs are clear. IMPRESSION: 1. No acute pulmonary process. [facility], , 05/06/2025 2:47 PM
[2025-05-06 15:10] LABS: Partial Thromboplastin Time 21.4 sec (22.0-30.0)
[2025-05-06 15:14] LABS: Influenza A Not Detected (Not Detectd); Influenza B Not Detected (Not Detectd); RSV Not Detected (Not Detectd)
[2025-05-06] MEDS: SODIUM CHLORIDE 0.9% 500 ML 500 ML IV STA (16:56)
--- NOTE | 2025-05-06 18:47 | CT ---
EXAMINATION TYPE: CT chest angio for PE DATE OF EXAM: 05/06/2025 6:12 PM COMPARISON: Prior CT chest dated 01/07/2025. CLINICAL INDICATION: Female, 85 years old with history of shortness of breath, elevated D-dimer; COVID POSITIVE, SOB, positive dimer. TECHNIQUE/CONTRAST: CTA scan of the thorax is performed with IV Contrast, patient injected with 50 mL of Isovue 370, MIP images are created and reviewed these are created on a separate workstation.. CT DLP: 270.2 mGycm, Automated exposure control for dose reduction was used. FINDINGS: Pulmonary Artery: There is no evidence for a filling defect within the pulmonary vasculature to sugge st acute pulmonary embolism. The pulmonary artery is of normal size. Lungs/Pleura: No evidence of focal consolidation, pleural effusion or pneumothorax. Bibasilar enhanci ng dependent atelectasis. Azygous lobe and fissure noted. Airway: Large airways are patent. Heart: Heart is within normal limits for size. Coronary artery calcifications. Vasculature: No evidence of aortic aneurysm. Mediastinum: No gross evidence of adenopathy. Musculoskeletal: No acute osseous abnormalities. Multilevel thoracic spine degenerative changes. Soft Tissues/lymph nodes: Unremarkable. Lower neck: No significant findings. Upper Abdomen: No significant acute findings. Visual splenic tissue in the left upper quadrant. IMPRESSION: 1. No evidence of acute pulmonary embolism. 2. Mild bibasilar dependent atelectasis [facility], , 05/06/2025 6:45 PM
[2025-05-06] MEDS ORDERED: NALOXONE 0.4 MG/ML 1 ML VIAL IV PRN (18:49)
[2025-05-06] MEDS ORDERED: ALBUTEROL NEBULIZED 2.5 MG/3 ML INHALATION PRN ×2 (18:50→19:50)
[2025-05-06] MEDS: methylPREDNISolone SOD SUCCI 125 MG/2 ML VIAL IV STA (19:33)
[2025-05-06] MEDS ORDERED: IPRATROPIUM-ALBUTEROL 3 ML NEB INHALATION PRN (19:50)
[2025-05-06] MEDS ORDERED: ALBUTEROL HFA INHALER INHALATION PRN (19:50)
[2025-05-06] MEDS ORDERED: DEXTROSE 50% SYRINGE 50 ML IVP PRN ×2 (20:11)
[2025-05-06] MEDS: ZINC SULFATE 220 MG CAP PO SCH (20:42)
[2025-05-06] MEDS: ASCORBIC ACID 500 MG TAB PO SCH (20:43)
[2025-05-06] MEDS: METOPROLOL TARTRATE 25 MG TAB PO SCH (20:43)
[2025-05-06] MEDS: LOSARTAN 25 MG TAB PO SCH (20:43)
[2025-05-06] MEDS: ATORVASTATIN 80 MG TAB PO SCH (20:43)
[2025-05-06 21:49] LABS: Glucose,Whole Blood 131 mg/dL (70-110)
[2025-05-06] MEDS: INSULIN LISPRO (HumaLOG) 100 UNIT/ML 10 mL VL SQ SCH (21:52)
[2025-05-06] MEDS: HEPARIN SODIUM,PORCINE 5,000 UNIT/ML 1 ML VIAL SQ SCH (23:46)
--- NOTE | 2025-05-07 01:14 | P.HPIM ---
History of Present Illness H&P Date: 05/06/25 Chief Complaint: Lightheadedness and Hypoxia Patient is a 85 year old female with asthma, CAD s/p prior stenting, ASHLY presented to the ED with lightheadedness and hypoxia. Patient reports nasal congestion, dry cough and lightheadedness for the past few days. Yesterday she slept the entire day. Today she felt like she was going to pass out. She does not use oxygen at home. Denies any sick contacts. Patient's oxygen saturation was 82% and was sent to the ED by her PCP for further evaluation of hypoxia. Moreover she reports having intermittent left sided chest pain and shortness of breath since she had the stent placed in 2022. She recently also had a sleep study that showed severe obstructive sleep apnea hypopnea syndrome but she has not yet used CPAP. Additionally she reports being recently diagnosed with diabetes mellitus and complains of numbness, tingling, burning sensation on b/l feet. She lives with her two sons and can ambulate on her own. Denies history of CHF, Hypertension, Atrial fibrillation. Denies fever, palpitations, abdominal pain, nausea, vomiting, hematuria, dysuria, hematochezia, melena, headache, slurred speech, numbness, tingling, dizziness, lightheadedness, blurred vision, double vision. ED documentation reviewed. In the ED patient was treated with 0.9 normal saline and methylprednisolone. Vitals on admission T 98.6 F, IN 89 bpm, RR 18, BP 109/67, SpO2 88% on room air Most recent vital IN 68 bpm, RR 18, BP 137/72, SpO2 99% on 4 L oxygen by nasal cannula EKG independently interpreted as sinus rhythm, S1Q3T3, rate 81 bpm, QTc 399 ms Chest x-ray shows no acute pulmonary process Chest CTA shows no evidence of acute pulmonary embolism, mild bibasilar dependent atelectasis Labs on admission show WBC 8.3, hemoglobin 13, MCV 100.5, platelet 211, INR 1.0, D-dimer 6.52, sodium 139, potassium 3.9, bicarb 31, BUN 20, creatinine 1.11, glucose 127, troponin I <0.012 Respiratory panel is positive for SARS-CoV-2 Review of systems: Pertinent positives and negatives as discussed in HPI, a complete review of systems was performed and all other systems are negative. Physical examination: Vital signs reviewed General: nontoxic, no distress, appears at stated age Derm: warm, dry, intact Head: atraumatic, normocephalic, symmetric Eyes: EOMI, anicteric sclera Mouth: no lip lesion, mucus membranes moist Cardiovascular: S1 S2 reg, no murmur Lungs: CTA bilateral, no rhonchi, no rales, no accessory muscle use Abdominal: soft, non-tender to palpation Extremities: 1+ pitting lower extremity edema, soft flesh colored nodules on right lower extremity, No cyanosis, clubbing Neuro: Alert, Oriented, Gross neurological examination did not reveal any focal deficits. Psych: well appearing, appropriate affect Assessment/Plan: Patient is a 85 year old female with asthma, CAD s/p prior stenting presented to the ED with lightheadedness and hypoxia. Patient admitted to internal medicine service. Active: #. Acute hypoxic respiratory failure #. Acute COVID-19 infection #. D-dimer elevation, PE r/o #. Asthma, not in exacerbation #. Metabolic alkalosis, chronic likely compensation from respiratory failure Respiratory panel is positive for SARS-CoV-2 EKG independently interpreted as sinus rhythm, S1Q3T3, rate 81 bpm, QTc 399 ms Chest x-ray shows no acute pulmonary process Chest CTA shows no evidence of acute pulmonary embolism, mild bibasilar depe ndent atelectasis Received one dose of Solumedrol in the ED Continue supplemental oxygen as needed Start Decadron 6 mg IVP daily, ascorbic acid 500 mg p.o. twice daily, zinc sulfate 220 mg p.o. daily Resume home meds nebulized albuterol, DuoNeb Obtain BNP and trend troponin Monitor vital signs and BMP Pulmonology consulted #. Type II Diabetes mellitus Resume home med Jardiance 25 mg PO daily Insulin sliding scale and ACHS blood glucose monitoring Obtain A1c Monitor for hypoglycemia Chronic: #. CAD S/p stenting of totally occluded mid circumflex in 06/04 #. Ischemic cardiomyopathy, EF improved to 55-60% in 08/05 #. Chronic lower extremity edema #. GERD #. Gout #. CKD stage IIIa #. Psoriasis #. Severe obstructive sleep apnea hypopnea syndrome #. Presbyesophagus, concern for aspiration at prior visit #. History of colon resection #. History of splenectomy #. Neurofibromatosis #. Hepatic steatosis Continue home meds aspirin 81 mg p.o. daily, atorvastatin 80 mg p.o. at bedtime, Imdur 30 mg p.o. daily, metoprolol 25 mg p.o. twice daily, losartan 25 mg p.o. at bedtime,Furosemide 20 mg PO daily, lansoprazole 30 mg p.o. daily, allopurinol 300 mg p.o. daily unknown why patient is on placix , her last heart stent was in May 2023. will stop plavix for now , due to initiating full anticoagulation with lovenox following hospital COVID guidelines F: None E: Replete as required N: Heart healthy diet A: Ambulatory DVT prophylaxis: full anticogulation following out hospital COVID guidelines GI prophylaxis: Lansoprazole 30 mg PO daily The patient is admitted with an anticipated more than 2 midnight stay for evaluation of shortness of breath CODE STATUS: FULL CODE Discussed with: Patient Anticipated discharge place: Pending clinical course Dictation was produced using [employer] dictation software. please excuse any grammatical, word or spelling errors. Servando Ventura MD PGY-1 IM I have seen and evaluated the patient today. I Discussed the case with the resident and agree with the resident's findings I edited the assessment and plan as necessary as documented in the resident's note. Past Medical History Past Medical History: Asthma, Coronary Artery Disease (CAD), Diabetes Mellitus, Myocardial Infarction ([place]), Skin Disorder Additional Past Medical History / Comment(s): [place] April 2023. Psoriasis. 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 Last Myocardial Infarction Date:: 2022 History of Any Multi-Drug Resistant Organisms: None Reported Past Surgical History: Appendectomy, Bowel Resection, Heart Catheterization With Stent, Hysterectomy Additional Past Surgical History / Comment(s): PRECIOUS 1981, BSO in 1983. Cystocele and rectocele repairs in 1999. 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 Colonoscopy 2013 (4th). Cardiac stent placed April 2023. Eye surgery.cataracts Additional Past Anesthesia/Blood Transfusion Reaction / Comment(s): shaking with spinal block. no blood transfusion Date of Last Stent Placement:: 2022 Past Psychological History: Anxiety Smoking Status: Never smoker Past Alcohol Use History: Rare Past Drug Use History: None Reported - Past Family History Mother Additional Family Medical History / Comment(s): FROM A "BLOOD CLOT" after hip replacement Father Family Medical History: Congestive Heart Failure (CHF), Diabetes Mellitus Sister(s) Family Medical History: CVA/TIA Additional Family Medical History / Comment(s): Brain aneurysm. . Medications and Allergies Home Medications Medication Instructions Recorded Confirmed Type Aspirin 81 mg PO DAILY 08/22/14 05/06/25 History allopurinoL [Allopurinol] 300 mg PO DAILY 08/22/14 05/06/25 History Albuterol Sulfate [Albuterol 2 puff INHALATION RT-QID PRN 06/06/23 05/06/25 History Sulfate Hfa] Lansoprazole [Prevacid] 30 mg PO DAILY 06/06/23 05/06/25 History Multivitamins, Thera [Multivitamin 1 tab PO DAILY 06/06/23 05/06/25 History (formulary)] Atorvastatin [Lipitor] 80 mg PO HS #90 tab 06/09/23 05/06/25 Rx Clopidogrel [Plavix] 75 mg PO DAILY #90 tablet 06/09/23 05/06/25 Rx Losartan [Cozaar] 25 mg PO HS #90 tab 06/09/23 05/06/25 Rx Metoprolol Tartrate [Lopressor] 25 mg PO BID #180 tablet 06/09/23 05/06/25 Rx Nitroglycerin Sl Tabs [Nitrostat] 0.4 mg SUBLINGUAL Q5M PRN #100 tab 06/09/23 05/06/25 Rx Furosemide [Lasix] 20 mg PO DAILY 08/20/24 05/06/25 History Albuterol Nebulized [Ventolin 2.5 mg INHALATION RT-Q4H PRN 05/06/25 05/06/25 History Nebulized] Empagliflozin [Jardiance] 25 mg PO DAILY 05/06/25 05/06/25 History Ipratropium-Albuterol Nebulize 3 ml INHALATION RT-Q4H PRN 05/06/25 05/06/25 History [Duoneb 0.5 mg-3 mg/3 ml Soln] Isosorbide Mononitrate ER [Imdur] 30 mg PO DAILY 05/06/25 05/06/25 History [place] 3-6-9 1030mg 1,030 mg PO DAILY 05/06/25 05/06/25 History Vitamin B-12(Unknown Dose) 1 tab PO DAILY 05/06/25 05/06/25 History Vitamin D3(Unknown Dose) 1 tab PO DAILY 05/06/25 05/06/25 History Allergies Allergy/AdvReac Type Severity Reaction Status Date / Time adhesive Allergy Rash/Hives Verified 05/06/25 16:19 Physical Exam Vitals: Vital Signs Temp Pulse Resp BP Pulse Ox 05/06/25 18:33 68 18 137/72 99 05/06/25 16:57 77 18 113/63 99 05/06/25 14:43 79 18 112/70 96 05/06/25 12:10 88 L 05/06/25 12:07 98.6 F 89 18 109/67 90 L Intake and Output 05/06/25 05/06/25 05/06/25 06:59 14:59 22:59 Other: Weight 75.75 kg Results CBC & Chem 7: 05/06/25 14:15 05/06/25 14:15 Labs: Abnormal Lab Results - Last 24 Hours (Table) 05/06/25 05/06/25 05/06/25 Range/Units 14:15 14:15 14:15 RBC 4.01 L (4.10-5.20) 10*6/uL MCV 100.5 H (80.0-97.0) fL MCH 32.4 H (27.0-32.0) pg Monocytes # 1.25 H (0.20-1.00) 10*3/uL Eosinophils # 0.03 L (0.04-0.35) 10*3/uL APTT 21.4 L (22.0-30.0) sec D-Dimer (<0.60) mg/L FEU Carbon Dioxide 31 H (22-30) mmol/L BUN 20 H (7-17) mg/dL Creatinine 1.11 H (0.52-1.04) mg/dL Glucose 127 H (74-99) mg/dL SARS-CoV-2 (PCR) (Not Detectd) 05/06/25 05/06/25 Range/Units 14:15 14:33 RBC (4.10-5.20) 10*6/uL MCV (80.0-97.0) fL MCH (27.0-32.0) pg Monocytes # (0.20-1.00) 10*3/uL Eosinophils # (0.04-0.35) 10*3/uL APTT (22.0-30.0) sec D-Dimer 6.52 H (<0.60) mg/L FEU Carbon Dioxide (22-30) mmol/L BUN (7-17) mg/dL Creatinine (0.52-1.04) mg/dL Glucose (74-99) mg/dL SARS-CoV-2 (PCR) Detected A (Not Detectd)
[2025-05-07 06:38] LABS: HGB 12.2 g/dL (12.0-15.0); MCH 31.9 pg (27.0-32.0); MCHC 31.3 g/dL (32.0-37.0); MCV 102.1 fL (80.0-97.0); Platelet Count 218 10*3/uL (140-440); RBC 3.82 10*6/uL (4.10-5.20); RDW 14.7 % (11.5-14.5); WBC 6.62 10*3/uL (4.50-10.00)
[2025-05-07 07:13] LABS: African American GFR (CKD) 71 (>60 ml/min/1.73 sqM); Anion Gap 5 mmol/L; Blood Urea Nitrogen 22 mg/dL (7-17); Calcium 8.9 mg/dL (8.4-10.2); Carbon Dioxide 31 mmol/L (22-30); Chloride 104 mmol/L (98-107); Glucose 207 mg/dL (74-99); Non-African American GFR(CKD) 61 (>60 ml/min/1.73 sqM); Potassium 4.2 mmol/L (3.5-5.1); Sodium 140 mmol/L (137-145)
[2025-05-07 07:44] LABS: Glucose,Whole Blood 170 mg/dL (70-110)
[2025-05-07] MEDS ORDERED: guaiFENesin-DM 100-10MG/5ML 10 ML CUP PO PRN (08:27)
[2025-05-07] MEDS: ENOXAPARIN 80 MG/0.8 ML SYRINGE SQ SCH (08:30)
[2025-05-07] MEDS: DEXAMETHASONE SOD PHOSPHATE 10 MG/ML 1 ML VIAL IVP SCH (08:31)
--- NOTE | 2025-05-07 08:31 | P.CNPUL ---
History of Present Illness Consult date: 05/07/25 Requesting physician: Ayla Hinds Reason for consult: other (COVID-positive) Chief complaint: Shortness of breath, cough History of present illness: Patient is an 85-year-old female with past medical history significant for asthma, hypertension, hyperlipidemia, diabetes mellitus, coronary artery disease with previous stent, previous splenectomy. Presented emergency department yesterday morning from her primary care provider's office. Reportedly, had low oxygen saturations at directed to the emergency department. Previously felt like she was going to "pass out". Also endorsing nasal congestion, dry cough, and lightheadedness. Patient was placed on supplemental oxygen on arrival. [place] in the ED including a positive PCR COVID test. D-dimer was elevated at 6.52, follow-up chest CT angiogram negative for filling defects, insistent with pulmonary embolism. Minimal bibasilar atelectasis without acute parenchymal process. Previously placed on IV Decadron. CBC unremarkable for leukocytosis. Hemoglobin 13. Platelets 211. CMP: Sodium 139, potassium 3.9, chloride 103, serum bicarb 31, BUN 20, creatinine 1.11, glucose 127. Lactic 1.3. Troponins less than 0.012 x 2. NT proBNP 275. Patient currently being evaluated in the emergency department, room 7. She is awake and alert and not in any distress. On 2 L/min nasal cannula. 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 Intermittent nausea. No emesis or diarrhea. Associated nasal congestion, dry cough without any sputum production and lightheadedness over the same timeframe. Denies chest pain. Denies leg swelling. Current vital signs: Heart rate 89 bpm, blood pressure 104/67 mmHg, SPO2 recorded at 94% on 2 L/min nasal cannula. Review of Systems Constitutional: Reports poor appetite, Reports sweats, Denies chills, Denies fever, Denies weight gain, Denies weight loss Ears, nose, mouth and throat: Reports nasal congestion, Reports nasal discharge, Reports post-nasal drip, Denies headache, Denies sinus pain, Denies sinus pressure, Denies sore throat Cardiovascular: Reports lightheadedness, Denies chest pain, Denies leg edema, Denies orthopnea, Denies palpitations, Denies paroxysmal nocturnal dyspnea, Denies syncope Respiratory: Reports cough, Reports dyspnea, Denies cough with sputum, Denies hemoptysis, Denies pain on inspiration, Denies wheezing Gastrointestinal: Reports nausea, Denies abdominal pain, Denies diarrhea, Denies vomiting Genitourinary: Denies dysuria Musculoskeletal: Denies limitation of motion Integumentary: Denies rash Neurological: Denies seizures, Denies syncope Psychiatric: Denies anxiety, Denies depression Past Medical History Past Medical History: Asthma, Coronary Artery Disease (CAD), Diabetes Mellitus, Myocardial Infarction ([place]), Skin Disorder Additional Past Medical History / Comment(s): [place] April 2023. Psoriasis. 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 Last Myocardial Infarction Date:: 2022 History of Any Multi-Drug Resistant Organisms: None Reported Past Surgical History: Appendectomy, Bowel Resection, Heart Catheterization With Stent, Hysterectomy Additional Past Surgical History / Comment(s): PRECIOUS 1981, BSO in 1983. Cystocele and rectocele repairs in 1999. 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 Colonoscopy 2013 (4th). Cardiac stent placed April 2023. Eye surgery.cataracts Additional Past Anesthesia/Blood Transfusion Reaction / Comment(s): shaking with spinal block. no blood transfusion Date of Last Stent Placement:: 2022 Past Psychological History: Anxiety Smoking Status: Never smoker Past Alcohol Use History: Rare Past Drug Use History: None Reported - Past Family History Mother Additional Family Medical History / Comment(s): FROM A "BLOOD CLOT" after hip replacement Father Family Medical History: Congestive Heart Failure (CHF), Diabetes Mellitus Sister(s) Family Medical History: CVA/TIA Additional Family Medical History / Comment(s): Brain aneurysm. . Medications and Allergies Home Medications Medication Instructions Recorded Confirmed Type Aspirin 81 mg PO DAILY 08/22/14 05/06/25 History allopurinoL [Allopurinol] 300 mg PO DAILY 08/22/14 05/06/25 History Albuterol Sulfate [Albuterol 2 puff INHALATION RT-QID PRN 06/06/23 05/06/25 History Sulfate Hfa] Lansoprazole [Prevacid] 30 mg PO DAILY 06/06/23 05/06/25 History Multivitamins, Thera [Multivitamin 1 tab PO DAILY 06/06/23 05/06/25 History (formulary)] Atorvastatin [Lipitor] 80 mg PO HS #90 tab 06/09/23 05/06/25 Rx Clopidogrel [Plavix] 75 mg PO DAILY #90 tablet 06/09/23 05/06/25 Rx Losartan [Cozaar] 25 mg PO HS #90 tab 06/09/23 05/06/25 Rx Metoprolol Tartrate [Lopressor] 25 mg PO BID #180 tablet 06/09/23 05/06/25 Rx Nitroglycerin Sl Tabs [Nitrostat] 0.4 mg SUBLINGUAL Q5M PRN #100 tab 06/09/23 05/06/25 Rx Furosemide [Lasix] 20 mg PO DAILY 08/20/24 05/06/25 History Albuterol Nebulized [Ventolin 2.5 mg INHALATION RT-Q4H PRN 05/06/25 05/06/25 History Nebulized] Empagliflozin [Jardiance] 25 mg PO DAILY 05/06/25 05/06/25 History Ipratropium-Albuterol Nebulize 3 ml INHALATION RT-Q4H PRN 05/06/25 05/06/25 History [Duoneb 0.5 mg-3 mg/3 ml Soln] Isosorbide Mononitrate ER [Imdur] 30 mg PO DAILY 05/06/25 05/06/25 History [place] 3-6-9 1030mg 1,030 mg PO DAILY 05/06/25 05/06/25 History Vitamin B-12(Unknown Dose) 1 tab PO DAILY 05/06/25 05/06/25 History Vitamin D3(Unknown Dose) 1 tab PO DAILY 05/06/25 05/06/25 History Allergies Allergy/AdvReac Type Severity Reaction Status Date / Time adhesive Allergy Rash/Hives Verified 05/06/25 16:19 Physical Exam Vitals: Vital Signs Temp Pulse Resp BP Pulse Ox 05/07/25 03:27 89 16 104/67 94 L 05/07/25 00:14 89 16 104/57 94 L 05/06/25 20:29 98 18 127/74 94 L 05/06/25 18:33 68 18 137/72 99 05/06/25 16:57 77 18 113/63 99 05/06/25 14:43 79 18 112/70 96 05/06/25 12:10 88 L 05/06/25 12:07 98.6 F 89 18 109/67 90 L Intake and Output 05/06/25 05/06/25 05/07/25 14:59 22:59 06:59 Other: Weight 75.75 kg GENERAL EXAM: Alert, 85-year-old female, comfortable in no apparent distress. HEAD: Normocephalic and atraumatic EYES: Normal reaction of pupils, equal size. NOSE: Clear with pink turbinates. THROAT: No erythema or exudates. NECK: No masses, no JVD. CHEST: No chest wall deformity. LUNGS: Equal air entry with no crackles, wheeze, rhonchi or dullness. On 2 L/min nasal cannula. No conversational dyspnea or accessory muscle use.. CVS: S1 and S2 normal with no audible murmur, regular rhythm. No extra heart sounds ABDOMEN: No hepatosplenomegaly, active bowel sounds, no guarding or rigidity. SPINE: No scoliosis or deformity SKIN: No rashes. Multiple nodules, nonpainful, noted on the right lower extremity not excluding ventral foot CENTRAL NERVOUS SYSTEM: No focal deficits, tone is normal in all 4 extremities. EXTREMITIES: There is no peripheral edema, clubbing, or cyanosis. Peripheral pulses are intact. Results - Laboratory Findings CBC and BMP: 05/07/25 06:10 05/07/25 06:10 PT/INR, D-dimer PT 11.1 sec (10.0-12.5) 05/06/25 14:15 INR 1.0 (<1.2) 05/06/25 14:15 D-Dimer 6.52 mg/L FEU (<0.60) H 05/06/25 14:15 Abnormal lab findings: Abnormal Labs 05/06/25 05/06/25 05/06/25 14:15 14:15 14:15 RBC 4.01 L MCV 100.5 H MCH 32.4 H Monocytes # 1.25 H Eosinophils # 0.03 L APTT 21.4 L D-Dimer Carbon Dioxide 31 H BUN 20 H Creatinine 1.11 H Glucose 127 H POC Glucose (mg/dL) SARS-CoV-2 (PCR) 05/06/25 05/06/25 05/06/25 14:15 14:33 21:46 RBC MCV MCH Monocytes # Eosinophils # APTT D-Dimer 6.52 H Carbon Dioxide BUN Creatinine Glucose POC Glucose (mg/dL) 131 H SARS-CoV-2 (PCR) Detected A - Diagnostic Findings Chest x-ray: image reviewed CT scan - chest: image reviewed Assessment and Plan Assessment: Acute COVID-19 infection Acute asthma exacerbation, secondary to above Acute hypoxemic respiratory failure, secondary to above; chest CT angiogram does not show any evidence of pulmonary embolism. Minimal bibasilar atelectasis w ithout acute parenchymal process. Hypertension History of hyperlipidemia Diabetes mellitus type 2 Coronary artery disease with previous PCI/stent to the left circumflex History of previous splenectomy History of severe obstructive sleep apnea Obesity, BMI 34.9 kg/m Plan: Continue supportive care Continue supplemental oxygen, currently requiring 2 L/min nasal cannula Continue albuterol nebs and Spiriva Continue IV Decadron Robitussin DM added for antitussive As needed Tylenol for fevers Lovenox for DVT prophylaxis We will continue to follow I have personally seen and examined the patient, performed the documentation and the assessment and plan as written. Number of minutes spent on the visit:20 On 05/07/2025, the patient is being seen in joint evaluation along with the nurse practitioner. This is a evaluation that was done in the Emergency Department and the patient was seen and 31 minutes. The patient has an acute COVID-19 infection. Symptoms started approximately 72 hours ago. The patient was initially found to be hypoxic and the patient's hypoxemia improved and the patient is currently on 2 L of O2 nasal cannula with a pulse ox of 96%. On room air oxygen, the pulse ox is at 89%. White cell count is nonelevated. Electrolytes are all within normal limits. D-dimer is at 6.5. Rest of the coagulation profile was normal. Troponins were negative. proBNP level is not elevated. CT of the chest that was done at time of admission on 05/06/2025 shows no evidence of any pulmonary embolism. There are some mild bibasilar dependent atelectatic changes seen. No filling defects. EKG showing a normal sinus rhythm and the patient has sinus bradycardia with a heart rate of 47 on that particular EKG and the patient's current heart rate is above 50. Afebrile. Started on Decadron. Home medication be resumed. The patient is on Lovenox and Lasix and the patient is also on metoprolol 25 mg p.o. twice daily. Respiratory medication include Ventolin HFA 4 times a day [id number]. Remains on Lasix 20 mg p.o. daily. Time with Patient: Greater than 30
[2025-05-07] MEDS: DAPAGLIFLOZIN PROPANEDIOL 10 MG TABLET PO SCH (08:32)
[2025-05-07] MEDS: ISOSORBIDE MONONITRATE ER 30 MG TAB.ER.24H PO SCH (08:32)
[2025-05-07] MEDS: PANTOPRAZOLE 40 MG TABLET PO SCH (08:33)
[2025-05-07] MEDS: ASPIRIN 81 MG PO SCH (08:33)
[2025-05-07] MEDS: FUROSEMIDE 20 MG TAB PO SCH (08:33)
[2025-05-07] MEDS: allopurinoL 300 MG TAB PO SCH (08:33)
[2025-05-07] MEDS ORDERED: CLOPIDOGREL 75 MG TAB PO SCH (09:00)
[2025-05-07] MEDS: ALBUTEROL HFA INHALER INHALATION PRN (09:18)
[2025-05-07] MEDS: TIOTROPIUM 2.5 MCG INHALER INHALATION PRN (09:19)
[2025-05-07 12:51] LABS: Glucose,Whole Blood 156 mg/dL (70-110)
--- NOTE | 2025-05-07 13:27 | P.PN ---
Subjective Progress Note Date: 05/07/25 85 year old female with asthma, CAD s/p prior stenting, ASHLY presented to the ED with lightheadedness and hypoxia. Vitals on admission T 98.6 F, MN 89 bpm, RR 18, BP 109/67, SpO2 88% on room air. EKG independently interpreted as sinus rhythm, S1Q3T3, rate 81 bpm, QTc 399 ms Chest x-ray shows no acute pulmonary process Chest CTA shows no evidence of acute pulmonary embolism, mild bibasilar dependent atelectasis Labs on admission show WBC 8.3, hemoglobin 13, MCV 100.5, platelet 211, INR 1.0, D-dimer 6.52, sodium 139, potassium 3.9, bicarb 31, BUN 20, creatinine 1.11, glucose 127, troponin I <0.012 Respiratory panel is positive for SARS-CoV-2. Patient is admitted for further workup and management. 05/07 Patient was seen and examined. She is 96% on 3L NC. Reports some dull L chest pain that started today. CBC and BMP significant for RBC 3.82, MCV 102.1, bicarb 31, BUN 22, glu 207. A1c 7.4. General: non toxic, no distress, appears at stated age Derm: warm, dry Head: atraumatic, normocephalic, symmetric Eyes: EOMI, no lid lag, anicteric sclera Mouth: no lip lesion, mucus membranes moist Cardiovascular: S1S2 reg, no murmur Lungs: Decreased BS bilateral, no rhonchi, no rales , no accessory muscle use Ext: no gross muscle atrophy, no edema, no contractures Neuro: no focal neuro deficits Psych: Alert, oriented, appropriate affect Based on my assessment of this patient, this patient meets a high complexity level of care. Acute hypoxic respiratory failure secondary to acute COVID-19 infection: Albuterol INH 2 puff Q4H PRN. Vit C 500 mg PO BID. Decadron 6 mg IV QD. Spiriva 2 INH QD PRN. Zinc 220 mg PO QD. Pulmonary on board. Chest pain: Obtain additional Trop/EKG to rule out ACS. D-dimer elevation likely due to COVID 19 with CTA chest neg for PE Metabolic alkalosis, chronic likely compensation from respiratory failure Type II Diabetes mellitus: ISS + Accuchecks ACHS along with hypoglycemic precautions. Asthma not in exacerbation CAD S/p stenting of totally occluded mid circumflex in 06/04: ASA 81 mg PO QD. Lipitor 80 mg PO QHS. Metoprolol 25 mg PO BID. Ischemic cardiomyopathy, EF improved to 55-60% in 08/05: Metoprolol as above. Losartan 25 mg PO QHS. Imdur 30 mg PO QD. Lasix 20 mg PO QD. Farxiga 10 mg PO QD. GERD: Protonix 40 mg PO QD. Gout: Allopurinol 100 mg PO QD. CKD stage IIIa at baseline CODE STATUS: FULL CODE DVT Prophylaxis: Lovenox SQ GI Prophylaxis: Protonix Designated medical POA if patient is not able to make medical decisions for themselves: I have reviewed the following c consultant notes: Pulmonary note. I have reviewed the results of the following tests: CBC, BMP. I have ordered the following tests: Trop/EKG. I have discussed the care of this patient with the following independent historian: I have independently interpreted the following test below: I have discussed the management of this patient with the following physician: Objective - Vital Signs Vital signs: Vital Signs Temp 97.6 F 05/07/25 08:00 Pulse 53 L 05/07/25 08:00 Resp 19 05/07/25 08:00 BP 107/55 05/07/25 08:00 Pulse Ox 96 05/07/25 08:00 FiO2 Intake & Output 05/06/25 05/07/25 05/07/25 18:59 06:59 18:59 Weight 75.75 kg - Labs CBC & Chem 7: 05/07/25 06:10 05/07/25 06:10 Labs: Abnormal Lab Results - Last 24 Hours (Table) 05/06/25 05/06/25 05/06/25 Range/Units 14:15 14:15 14:15 RBC 4.01 L (4.10-5.20) 10*6/uL MCV 100.5 H (80.0-97.0) fL MCH 32.4 H (27.0-32.0) pg MCHC (32.0-37.0) g/dL Monocytes # 1.25 H (0.20-1.00) 10*3/uL Eosinophils # 0.03 L (0.04-0.35) 10*3/uL APTT 21.4 L (22.0-30.0) sec D-Dimer (<0.60) mg/L FEU Carbon Dioxide 31 H (22-30) mmol/L BUN 20 H (7-17) mg/dL Creatinine 1.11 H (0.52-1.04) mg/dL Glucose 127 H (74-99) mg/dL POC Glucose (mg/dL) (70-110) mg/dL Hemoglobin A1c (<=6.0) % SARS-CoV-2 (PCR) (Not Detectd) 05/06/25 05/06/25 05/06/25 Range/Units 14:15 14:33 21:46 RBC (4.10-5.20) 10*6/uL MCV (80.0-97.0) fL MCH (27.0-32.0) pg MCHC (32.0-37.0) g/dL Monocytes # (0.20-1.00) 10*3/uL Eosinophils # (0.04-0.35) 10*3/uL APTT (22.0-30.0) sec D-Dimer 6.52 H (<0.60) mg/L FEU Carbon Dioxide (22-30) mmol/L BUN (7-17) mg/dL Creatinine (0.52-1.04) mg/dL Glucose (74-99) mg/dL POC Glucose (mg/dL) 131 H (70-110) mg/dL Hemoglobin A1c (<=6.0) % SARS-CoV-2 (PCR) Detected A (Not Detectd) 05/07/25 05/07/25 05/07/25 Range/Units 06:10 06:10 06:10 RBC 3.82 L (4.10-5.20) 10*6/uL MCV 102.1 H (80.0-97.0) fL MCH (27.0-32.0) pg MCHC 31.3 L (32.0-37.0) g/dL Monocytes # (0.20-1.00) 10*3/uL Eosinophils # (0.04-0.35) 10*3/uL APTT (22.0-30.0) sec D-Dimer (<0.60) mg/L FEU Carbon Dioxide 31 H (22-30) mmol/L BUN 22 H (7-17) mg/dL Creatinine (0.52-1.04) mg/dL Glucose 207 H (74-99) mg/dL POC Glucose (mg/dL) (70-110) mg/dL Hemoglobin A1c 7.4 H (<=6.0) % SARS-CoV-2 (PCR) (Not Detectd) 05/07/25 05/07/25 Range/Units 07:41 12:47 RBC (4.10-5.20) 10*6/uL MCV (80.0-97.0) fL MCH (27.0-32.0) pg MCHC (32.0-37.0) g/dL Monocytes # (0.20-1.00) 10*3/uL Eosinophils # (0.04-0.35) 10*3/uL APTT (22.0-30.0) sec D-Dimer (<0.60) mg/L FEU Carbon Dioxide (22-30) mmol/L BUN (7-17) mg/dL Creatinine (0.52-1.04) mg/dL Glucose (74-99) mg/dL POC Glucose (mg/dL) 170 H 156 H (70-110) mg/dL Hemoglobin A1c (<=6.0) % SARS-CoV-2 (PCR) (Not Detectd)
[2025-05-07 18:02] LABS: Glucose,Whole Blood 172 mg/dL (70-110)
[2025-05-07] MEDS: ACETAMINOPHEN TAB 325 MG TAB PO PRN (20:08)
[2025-05-07 21:03] LABS: Glucose,Whole Blood 175 mg/dL (70-110)
[2025-05-08 07:09] LABS: Basophils # (A) 0.01 10*3/uL (0.00-0.10); Basophils % (A) 0.1 %; HCT 36.3 % (37.2-46.3); HGB 11.9 g/dL (12.0-15.0); Lymphocytes # (A) 1.97 10*3/uL (0.90-5.00); Lymphocytes % (A) 20.7 %; MCH 33.1 pg (27.0-32.0); MCHC 32.8 g/dL (32.0-37.0); MCV 100.8 fL (80.0-97.0); Mean Platelet Volume 10.3 fL (9.5-12.2); Monocytes # (A) 0.74 10*3/uL (0.20-1.00); Monocytes % (A) 7.8 %; Neutrophils # (A) 6.76 10*3/uL (1.80-7.70); Neutrophils % (A) 71.1 %; Platelet Count 209 10*3/uL (140-440); RDW 14.3 % (11.5-14.5); WBC 9.51 10*3/uL (4.50-10.00)
[2025-05-08 07:27] LABS: ALT 20 U/L (4-34); AST 33 U/L (14-36); African American GFR (CKD) 50 (>60 ml/min/1.73 sqM); Albumin 3.3 g/dL (3.5-5.0); Alkaline Phosphatase 89 U/L (38-126); Anion Gap 4 mmol/L; Blood Urea Nitrogen 33 mg/dL (7-17); Calcium 9.3 mg/dL (8.4-10.2); Carbon Dioxide 30 mmol/L (22-30); Chloride 106 mmol/L (98-107); Glucose 136 mg/dL (74-99); LDH 179 U/L (120-246); Magnesium 2.2 mg/dL (1.6-2.3); Non-African American GFR(CKD) 43 (>60 ml/min/1.73 sqM); Potassium 3.9 mmol/L (3.5-5.1); Sodium 140 mmol/L (137-145); Total Bilirubin 0.6 mg/dL (0.2-1.3); Total Protein 5.6 g/dL (6.3-8.2)
[2025-05-08 07:35] LABS: NT-Pro-B-Type Natriuretic Pept 186 pg/mL
[2025-05-08 07:47] LABS: INR 0.9 (<1.2); Partial Thromboplastin Time 23.2 sec (22.0-30.0); Prothrombin Time 10.3 sec (10.0-12.5)
[2025-05-08 07:49] LABS: Glucose,Whole Blood 114 mg/dL (70-110)
[2025-05-08 07:54] LABS: C Reactive Protein 1.2 mg/dL (<1.0)
--- NOTE | 2025-05-08 10:16 | CDI ---
Documentation Clarification Form Date: 05/08/2025 09:55:49 AM From: Ashlyn Jung RN CCDS Phone: [phone] Admit Date: 05/06/2025 06:47:00 PM Patient Name: Letha Harrison Visit Number: [id number] Discharge Date: ATTENTION: The Clinical Documentation Specialists (CDI) and [facility] Coding Staff appreciate your assistance in clarifying documentation. Please respond to the clarification below the line at the bottom and electronically sign. The CDI & [facility] Coding staff will review the response and follow-up if needed. Please note: Queries are made part of the Legal Health Record. If you have any questions, please contact the author of this message via ITS. Doctor: Romain Gasca Conflicting documentation has been found in the medical record. As attending physician, please provide clarification. Asthma not in exacerbation, Medicine notes 05/06, 05/07 Acute asthma exacerbation, Pulmonary consult 05/07 History/Risk Factors: 85 year old female presents to the ED for nasal congestion, dry cough, lightheadedness and hypoxia. Medical history: Clinical Indicators: VSS, 05/06: B/P 109/67, HR 89, TEMP 98.6F Oral, RR 18, SpO2 90% ra CXR, 05/06: No acute pulmonary process CT Chest, 05/06: No evidence of acute pulmonary embolism. Mild bibasilar dependent atelectasis. Lung exam 05/06, HP: Clear to auscultation bilateral, no rhonchi, no rales, no accessory muscle use. Lung exam: 05/07, Pulmonary: Equal air entry with no crackles, wheeze, rhonchi or dullness. On 2L/min nasal cannula. No conversational dyspnea or accessory muscle use. COVID Positive. Treatment: 05/06 Ventolin Hfa Inaler Q4H PRN , 05/07 Decadron IVP daily, 05/06 Spiriva Respimat Inhalation PRN Daily Please clarify which diagnosis is most appropriate: [ ] Asthma not in exacerbation [ x ] Acute asthma exacerbation [ ] Other (please specify) [ ] Unable to determine (Template Last Revised: January 2021) MTDD
[2025-05-08 12:19] LABS: Glucose,Whole Blood 156 mg/dL (70-110)
--- NOTE | 2025-05-08 14:55 | P.PN ---
Subjective Progress Note Date: 05/08/25 85 year old female with asthma, CAD s/p prior stenting, ASHLY presented to the ED with lightheadedness and hypoxia. Vitals on admission T 98.6 F, GA 89 bpm, RR 18, BP 109/67, SpO2 88% on room air. EKG independently interpreted as sinus rhythm, S1Q3T3, rate 81 bpm, QTc 399 ms Chest x-ray shows no acute pulmonary process Chest CTA shows no evidence of acute pulmonary embolism, mild bibasilar dependent atelectasis Labs on admission show WBC 8.3, hemoglobin 13, MCV 100.5, platelet 211, INR 1.0, D-dimer 6.52, sodium 139, potassium 3.9, bicarb 31, BUN 20, creatinine 1.11, glucose 127, troponin I <0.012 Respiratory panel is positive for SARS-CoV-2. Patient is admitted for further workup and management. 05/07 Patient was seen and examined. She is 96% on 3L NC. Reports some dull L chest pain that started today. CBC and BMP significant for RBC 3.82, MCV 102.1, bicarb 31, BUN 22, glu 207. A1c 7.4. 05/08 Patient was seen and examined. Currently on 2L NC. Improved breathing. Reports positional lightheadedness. CBC, Coag panel, CMP significant for RBC 3.6, Hg 11.9, Hct 36.3, MCV 100.8, BUN 33, Cr 1.17, glu 136, alb 3.3. Mag 2.2. Ferritin 369. D-Dmer 2.38. Trop < 0.012. LDH 179. CRP 1.2. EKG shows sinus joel HR 47. General: non toxic, no distress, appears at stated age Derm: warm, dry Head: atraumatic, normocephalic, symmetric Eyes: EOMI, no lid lag, anicteric sclera Mouth: no lip lesion, mucus membranes moist Cardiovascular: S1S2 reg, no murmur Lungs: Decreased BS bilateral, no rhonchi, no rales , no accessory muscle use Ext: no gross muscle atrophy, no edema, no contractures Neuro: no focal neuro deficits Psych: Alert, oriented, appropriate affect Based on my assessment of this patient, this patient meets a high complexity level of care. Acute hypoxic respiratory failure secondary to acute COVID-19 infection: Albuterol INH 2 puff Q4H PRN. Vit C 500 mg PO BID. Decadron 6 mg IV QD. Spiriva 2 INH QD PRN. Zinc 220 mg PO QD. Pulmonary on board. Positional lightheadedness: Decrease Metoprolol from 25 mg PO BID to 12.5 mg PO QD. Stop Imdur. Decrease Losartan from 25 to 12.5 mg PO QHS. Chest pain: Trop negative. ACS ruled out. D-dimer elevation likely due to COVID 19 with CTA chest neg for PE Metabolic alkalosis, chronic likely compensation from respiratory failure Type II Diabetes mellitus: ISS + Accuchecks ACHS along with hypoglycemic precautions. Asthma not in exacerbation CAD S/p stenting of totally occluded mid circumflex in 06/04: ASA 81 mg PO QD. Lipitor 80 mg PO QHS. Metoprolol 25 mg PO BID. Ischemic cardiomyopathy, EF improved to 55-60% in 08/05: Metoprolol as above. Losartan as above. Stop Imdur as above. Lasix 20 mg PO QD. Farxiga 10 mg PO QD. GERD: Protonix 40 mg PO QD. Gout: Allopurinol 100 mg PO QD. CKD stage IIIa at baseline CODE STATUS: FULL CODE DVT Prophylaxis: Lovenox SQ GI Prophylaxis: Protonix Designated medical POA if patient is not able to make medical decisions for themselves: I have reviewed the following executive search consultant notes: Pulmonary note. I have reviewed the results of the following tests: CBC, CMP, D-Dimer, Trop, LDH, Ferritin, CRP. I have ordered the following tests: I have discussed the care of this patient with the following independent historian: I have independently interpreted the following test below: EKG. I have discussed the management of this patient with the following physician: Objective - Vital Signs Vital signs: Vital Signs Temp 97.7 F 05/08/25 08:49 Pulse 85 05/08/25 12:59 Resp 20 05/08/25 12:59 BP 118/65 05/08/25 12:59 Pulse Ox 98 05/08/25 09:16 FiO2 - Labs CBC & Chem 7: 05/08/25 06:34 05/08/25 06:34 Labs: Abnormal Lab Results - Last 24 Hours (Table) 05/07/25 05/07/25 05/08/25 Range/Units 18:01 20:57 06:34 RBC 3.60 L (4.10-5.20) 10*6/uL Hgb 11.9 L (12.0-15.0) g/dL Hct 36.3 L (37.2-46.3) % MCV 100.8 H (80.0-97.0) fL MCH 33.1 H (27.0-32.0) pg Eosinophils # 0.00 L (0.04-0.35) 10*3/uL D-Dimer (<0.60) mg/L FEU BUN (7-17) mg/dL Creatinine (0.52-1.04) mg/dL Glucose (74-99) mg/dL POC Glucose (mg/dL) 172 H 175 H (70-110) mg/dL Ferritin (10.0-291.0) ng/mL C-Reactive Protein (<1.0) mg/dL Total Protein (6.3-8.2) g/dL Albumin (3.5-5.0) g/dL 05/08/25 05/08/25 05/08/25 Range/Units 06:34 06:40 07:47 RBC (4.10-5.20) 10*6/uL Hgb (12.0-15.0) g/dL Hct (37.2-46.3) % MCV (80.0-97.0) fL MCH (27.0-32.0) pg Eosinophils # (0.04-0.35) 10*3/uL D-Dimer 2.38 H (<0.60) mg/L FEU BUN 33 H (7-17) mg/dL Creatinine 1.17 H (0.52-1.04) mg/dL Glucose 136 H (74-99) mg/dL POC Glucose (mg/dL) 114 H (70-110) mg/dL Ferritin 469.0 H (10.0-291.0) ng/mL C-Reactive Protein 1.2 H (<1.0) mg/dL Total Protein 5.6 L (6.3-8.2) g/dL Albumin 3.3 L (3.5-5.0) g/dL 05/08/25 Range/Units 12:17 RBC (4.10-5.20) 10*6/uL Hgb (12.0-15.0) g/dL Hct (37.2-46.3) % MCV (80.0-97.0) fL MCH (27.0-32.0) pg Eosinophils # (0.04-0.35) 10*3/uL D-Dimer (<0.60) mg/L FEU BUN (7-17) mg/dL Creatinine (0.52-1.04) mg/dL Glucose (74-99) mg/dL POC Glucose (mg/dL) 156 H (70-110) mg/dL Ferritin (10.0-291.0) ng/mL C-Reactive Protein (<1.0) mg/dL Total Protein (6.3-8.2) g/dL Albumin (3.5-5.0) g/dL
[2025-05-08 16:49] LABS: Glucose,Whole Blood 192 mg/dL (70-110)
[2025-05-08 17:43] VITALS: RESP 16
[2025-05-08 20:41] LABS: Glucose,Whole Blood 238 mg/dL (70-110)
[2025-05-08] MEDS: LOSARTAN 25 MG TAB PO SCH (21:21)
--- NOTE | 2025-05-08 22:39 | P.PN ---
Subjective Progress Note Date: 05/08/25 Patient is an 85-year-old female with past medical history significant for asthma, hypertension, hyperlipidemia, diabetes mellitus, coronary artery disease with previous stent, previous splenectomy. Presented emergency department yesterday morning from her primary care provider's office. Reportedly, had low oxygen saturations at directed to the emergency department. Previously felt like she was going to "pass out". Also endorsing nasal congestion, dry cough, and lightheadedness. Patient was placed on supplemental oxygen on arrival. Workup in the ED including a positive PCR COVID test. D-dimer was elevated at 6.52, follow-up chest CT angiogram negative for filling defects, insistent with pulmonary embolism. Minimal bibasilar atelectasis without acute parenchymal process. Previously placed on IV Decadron. CBC unremarkable for leukocytosis. Hemoglobin 13. Platelets 211. CMP: Sodium 139, potassium 3.9, chloride 103, serum bicarb 31, BUN 20, creatinine 1.11, glucose 127. Lactic 1.3. Troponins less than 0.012 x 2. NT proBNP 275. Patient currently being evaluated in the emergency department, room 7. She is awake and alert and not in any distress. On 2 L/min nasal cannula. 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 Intermittent nausea. No emesis or diarrhea. Associated nasal congestion, dry cough without any sputum production and lightheadedness over the same timeframe. Denies chest pain. Denies leg swelling. Current vital signs: Heart rate 89 bpm, blood pressure 104/67 mmHg, SPO2 recorded at 94% on 2 L/min nasal cannula. On today's evaluation of 05/08/2025, the patient is being seen for a follow-up. No specific complaints. The patient is still requiring oxygen at 2 L/min nasal cannula. She drops below 90% on room air oxygen. For that reason, the patient was kept in the hospital for another 24 hours. Meanwhile, the patient remains on Decadron. She remains on tiotropium 2 puffs once a day and albuterol rescue inhaler 4 times a day and as needed. Remains on Decadron. Remains on Lovenox and the rest of the home medications will be resumed. The white cell count is 9.5 with a hemoglobin 9.9 and a platelet count of 209. Normal coagulation profile. Sodium is at 140 with a potassium level of 3.9 BUN is 33 and the creatinine is 1.17. Objective - Vital Signs Vital signs: Vital Signs Temp 97.7 F 05/08/25 08:49 Pulse 85 05/08/25 12:59 Resp 20 05/08/25 12:59 BP 118/65 05/08/25 12:59 Pulse Ox 98 05/08/25 09:16 FiO2 - Exam GENERAL EXAM: Alert, 85-year-old female, comfortable in no apparent distress. HEAD: Normocephalic and atraumatic EYES: Normal reaction of pupils, equal size. NOSE: Clear with pink turbinates. THROAT: No erythema or exudates. NECK: No masses, no JVD. CHEST: No chest wall deformity. LUNGS: Equal air entry with no crackles, wheeze, rhonchi or dullness. On 2 L/min nasal cannula. No conversational dyspnea or accessory muscle use.. CVS: S1 and S2 normal with no audible murmur, regular rhythm. No extra heart sounds ABDOMEN: No hepatosplenomegaly, active bowel sounds, no guarding or rigidity. SPINE: No scoliosis or deformity SKIN: No rashes. Multiple nodules, nonpainful, noted on the right lower extremity not excluding ventral foot CENTRAL NERVOUS SYSTEM: No focal deficits, tone is normal in all 4 extremities. EXTREMITIES: There is no peripheral edema, clubbing, or cyanosis. Peripheral pulses are intact. - Labs CBC & Chem 7: 05/08/25 06:34 05/08/25 06:34 Labs: Abnormal Lab Results - Last 24 Hours (Table) 05/07/25 05/07/25 05/08/25 Range/Units 18:01 20:57 06:34 RBC 3.60 L (4.10-5.20) 10*6/uL Hgb 11.9 L (12.0-15.0) g/dL Hct 36.3 L (37.2-46.3) % MCV 100.8 H (80.0-97.0) fL MCH 33.1 H (27.0-32.0) pg Eosinophils # 0.00 L (0.04-0.35) 10*3/uL D-Dimer (<0.60) mg/L FEU BUN (7-17) mg/dL Creatinine (0.52-1.04) mg/dL Glucose (74-99) mg/dL POC Glucose (mg/dL) 172 H 175 H (70-110) mg/dL Ferritin (10.0-291.0) ng/mL C-Reactive Protein (<1.0) mg/dL Total Protein (6.3-8.2) g/dL Albumin (3.5-5.0) g/dL 05/08/25 05/08/25 05/08/25 Range/Units 06:34 06:40 07:47 RBC (4.10-5.20) 10*6/uL Hgb (12.0-15.0) g/dL Hct (37.2-46.3) % MCV (80.0-97.0) fL MCH (27.0-32.0) pg Eosinophils # (0.04-0.35) 10*3/uL D-Dimer 2.38 H (<0.60) mg/L FEU BUN 33 H (7-17) mg/dL Creatinine 1.17 H (0.52-1.04) mg/dL Glucose 136 H (74-99) mg/dL POC Glucose (mg/dL) 114 H (70-110) mg/dL Ferritin 469.0 H (10.0-291.0) ng/mL C-Reactive Protein 1.2 H (<1.0) mg/dL Total Protein 5.6 L (6.3-8.2) g/dL Albumin 3.3 L (3.5-5.0) g/dL 05/08/25 Range/Units 12:17 RBC (4.10-5.20) 10*6/uL Hgb (12.0-15.0) g/dL Hct (37.2-46.3) % MCV (80.0-97.0) fL MCH (27.0-32.0) pg Eosinophils # (0.04-0.35) 10*3/uL D-Dimer (<0.60) mg/L FEU BUN (7-17) mg/dL Creatinine (0.52-1.04) mg/dL Glucose (74-99) mg/dL POC Glucose (mg/dL) 156 H (70-110) mg/dL Ferritin (10.0-291.0) ng/mL C-Reactive Protein (<1.0) mg/dL Total Protein (6.3-8.2) g/dL Albumin (3.5-5.0) g/dL Assessment and Plan Assessment: Acute COVID-19 infection Acute asthma exacerbation, secondary to above Acute hypoxemic respiratory failure, secondary to above; chest CT angiogram does not show any evidence of pulmonary embolism. Minimal bibasilar atelectasis without acute parenchymal process. The patient continues to have some desaturation on room air oxygen and currently is on 2 L of oxygen by nasal cannula. For that reason, the patient was kept in the hospital for another 24 hours. Hypertension History of hyperlipidemia Diabetes mellitus type 2 Coronary artery disease with previous PCI/stent to the left circumflex History of previous splenectomy History of severe obstructive sleep apnea Obesity, BMI 34.9 kg/m Plan: Overall condition is stable. Anticipate improvement oxygenation over the next 24 hours. The patient can be potentially discharged once her oxygenation is improved Continue supportive care Continue supplemental oxygen, currently requiring 2 L/min nasal cannula Continue albuterol nebs and Spiriva Continue IV Decadron Robitussin DM added for antitussive As needed Tylenol for fevers Lovenox for DVT prophylaxis We will continue to follow, anticipate improvement in oxygenation likely discharge in the next 24 hours. Otherwise, no new complaints. Hemodynamically stable. Afebrile. Home medications have been resumed.
[2025-05-09 06:04] LABS: Glucose,Whole Blood 136 mg/dL (70-110)
[2025-05-09 09:42] LABS: Basophils # (A) 0.02 10*3/uL (0.00-0.10); Basophils % (A) 0.2 %; HCT 39.4 % (37.2-46.3); HGB 12.6 g/dL (12.0-15.0); Lymphocytes # (A) 2.56 10*3/uL (0.90-5.00); MCH 31.9 pg (27.0-32.0); MCV 99.7 fL (80.0-97.0); Monocytes # (A) 0.55 10*3/uL (0.20-1.00); Monocytes % (A) 5.4 %; Neutrophils # (A) 7.08 10*3/uL (1.80-7.70); Neutrophils % (A) 69.1 %; Platelet Count 228 10*3/uL (140-440); RBC 3.95 10*6/uL (4.10-5.20); RDW 14.4 % (11.5-14.5); WBC 10.24 10*3/uL (4.50-10.00)
[2025-05-09 10:01] LABS: ALT 22 U/L (4-34); AST 36 U/L (14-36); African American GFR (CKD) 73 (>60 ml/min/1.73 sqM); Albumin 3.5 g/dL (3.5-5.0); Alkaline Phosphatase 97 U/L (38-126); Anion Gap 9 mmol/L; Blood Urea Nitrogen 28 mg/dL (7-17); C Reactive Protein 0.8 mg/dL (<1.0); Calcium 9.4 mg/dL (8.4-10.2); Carbon Dioxide 29 mmol/L (22-30); Chloride 102 mmol/L (98-107); Glucose 160 mg/dL (74-99); LDH 200 U/L (120-246); Non-African American GFR(CKD) 63 (>60 ml/min/1.73 sqM); Potassium 3.6 mmol/L (3.5-5.1); Sodium 140 mmol/L (137-145); Total Bilirubin 0.6 mg/dL (0.2-1.3)
[2025-05-09 10:07] LABS: NT-Pro-B-Type Natriuretic Pept 140 pg/mL
[2025-05-09] MEDS: METOPROLOL SUCCINATE (ER) 25 MG TAB.ER.24H PO SCH (10:09)
[2025-05-09 10:19] VITALS: BP 126/66; PULSE 82; TEMP 97.5
[2025-05-09 10:45] LABS: INR 0.9 (<1.2); Prothrombin Time 9.9 sec (10.0-12.5)
[2025-05-09 11:35] LABS: Glucose,Whole Blood 162 mg/dL (70-110)
--- NOTE | 2025-05-09 15:40 | P.DS ---
Providers Date of admission: 05/06/25 18:47 Expected date of discharge: 05/09/25 Attending physician: Romain Gasca Consults: 05/06/25 18:49 Consult Physician Urgent Consulting Provider: Vj Schmidt Consult Reason/Comments: Covid-19, hypoxia Do you want consulting provider notified?: Yes Primary care physician: Rj [facility] Course: 85 year old female with asthma, CAD s/p prior stenting, ASHLY presented to the ED with lightheadedness and hypoxia. Vitals on admission T 98.6 F, NH 89 bpm, RR 18, BP 109/67, SpO2 88% on room air. EKG independently interpreted as sinus rhythm, S1Q3T3, rate 81 bpm, QTc 399 ms Chest x-ray shows no acute pulmonary process Chest CTA shows no evidence of acute pulmonary embolism, mild bibasilar dependent atelectasis Labs on admission show WBC 8.3, hemoglobin 13, MCV 100.5, platelet 211, INR 1.0, D-dimer 6.52, sodium 139, potassium 3.9, bicarb 31, BUN 20, creatinine 1.11, glucose 127, troponin I <0.012 Respiratory panel is positive for SARS-CoV-2. Patient is admitted for further workup and management. 05/07 Patient was seen and examined. She is 96% on 3L NC. Reports some dull L chest pain that started today. CBC and BMP significant for RBC 3.82, MCV 102.1, bicarb 31, BUN 22, glu 207. A1c 7.4. 05/08 Patient was seen and examined. Currently on 2L NC. Improved breathing. Reports positional lightheadedness. CBC, Coag panel, CMP significant for RBC 3.6, Hg 11.9, Hct 36.3, MCV 100.8, BUN 33, Cr 1.17, glu 136, alb 3.3. Mag 2.2. Ferritin 369. D-Dmer 2.38. Trop < 0.012. LDH 179. CRP 1.2. EKG shows sinus joel HR 47. 05/09 Patient was seen and examined. On RA saturating high 90s. No more dizziness. BP improved to 126/66, HR 82. CBC, Coag panel, CMP significant for WBC 10.24, RBC 3.95, MCV 99.7, PT 9.9, BUN 28, glu 160. Mag 2. D-Dmer 1.73. Trop < 0.012. LDH 200. Discharge Plan: Continue Decadron for 7 more days (total 10 days). Losartan cut down to 12.5 mg PO QD and Metoprolol cut down to 12.5 mg PO QD. Follow up with PCP within 1-2 days, Dr. Schmidt within [address] Wray on 05/15. General: non toxic, no distress, appears at stated age Derm: warm, dry Head: atraumatic, normocephalic, symmetric Eyes: EOMI, no lid lag, anicteric sclera Mouth: no lip lesion, mucus membranes moist Cardiovascular: S1S2 reg, no murmur Lungs: Decreased BS bilateral, no rhonchi, no rales , no accessory muscle use Ext: no gross muscle atrophy, no edema, no contractures Neuro: no focal neuro deficits Psych: Alert, oriented, appropriate affect Discharge Diagnosis: Acute hypoxic respiratory failure secondary to acute COVID-19 infection Positional lightheadedness Chest pain D-dimer elevation likely due to COVID 19 with CTA chest neg for PE Metabolic alkalosis, chronic likely compensation from respiratory failure Type II Diabetes mellitus Asthma not in exacerbation CAD S/p stenting of totally occluded mid circumflex in 06/04 Ischemic cardiomyopathy, EF improved to 55-60% in 08/05 GERD Gout CKD stage IIIa at baseline This complex discharge took 35 minutes to complete. Patient Condition at Discharge: Stable Plan - Discharge Summary Discharge Rx Participant: No New Discharge Prescriptions: New Losartan [Cozaar] 12.5 mg PO HS tab dexAMETHasone [Decadron] 6 mg PO DAILY #7 tablet Metoprolol Succinate (ER) [Toprol XL] 12.5 mg PO DAILY #30 tab Acetaminophen Tab [Tylenol] 650 mg PO Q4HR PRN tab PRN Reason: Fever>101 Continue Aspirin 81 mg PO DAILY allopurinoL [Allopurinol] 300 mg PO DAILY Vitamin D3(Unknown Dose) 1 tab PO DAILY Vitamin B-12(Unknown Dose) 1 tab PO DAILY [place] 3-6-9 1030mg 1,030 mg PO DAILY Albuterol Nebulized [Ventolin Nebulized] 2.5 mg INHALATION RT-Q4H PRN PRN Reason: Shortness Of Breath Multivitamins, Thera [Multivitamin (formulary)] 1 tab PO DAILY Lansoprazole [Prevacid] 30 mg PO DAILY Albuterol Sulfate [Albuterol Sulfate Hfa] 2 puff INHALATION RT-QID PRN PRN Reason: Shortness Of Breath Atorvastatin [Lipitor] 80 mg PO HS #90 tab Nitroglycerin Sl Tabs [Nitrostat] 0.4 mg SUBLINGUAL Q5M PRN #100 tab PRN Reason: Chest Pain Clopidogrel [Plavix] 75 mg PO DAILY #90 tablet Furosemide [Lasix] 20 mg PO DAILY Empagliflozin [Jardiance] 25 mg PO DAILY Ipratropium-Albuterol Nebulize [Duoneb 0.5 mg-3 mg/3 ml Soln] 3 ml INHALATION RT-Q4H PRN PRN Reason: Shortness Of Breath Discontinued Losartan [Cozaar] 25 mg PO HS #90 tab Metoprolol Tartrate [Lopressor] 25 mg PO BID #180 tablet Isosorbide Mononitrate ER [Imdur] 30 mg PO DAILY Discharge Medication List Aspirin 81 mg PO DAILY 08/22/14 [History] allopurinoL [Allopurinol] 300 mg PO DAILY 08/22/14 [History] Albuterol Sulfate [Albuterol Sulfate Hfa] 2 puff INHALATION RT-QID PRN 06/06/23 [History] Lansoprazole [Prevacid] 30 mg PO DAILY 06/06/23 [History] Multivitamins, Thera [Multivitamin (formulary)] 1 tab PO DAILY 06/06/23 [History] Atorvastatin [Lipitor] 80 mg PO HS #90 tab 06/09/23 [Rx] Clopidogrel [Plavix] 75 mg PO DAILY #90 tablet 06/09/23 [Rx] Nitroglycerin Sl Tabs [Nitrostat] 0.4 mg SUBLINGUAL Q5M PRN #100 tab 06/09/23 [Rx] Furosemide [Lasix] 20 mg PO DAILY 08/20/24 [History] Albuterol Nebulized [Ventolin Nebulized] 2.5 mg INHALATION RT-Q4H PRN 05/06/25 [History] Empagliflozin [Jardiance] 25 mg PO DAILY 05/06/25 [History] Ipratropium-Albuterol Nebulize [Duoneb 0.5 mg-3 mg/3 ml Soln] 3 ml INHALATION RT-Q4H PRN 05/06/25 [History] [place] 3-6-9 1030mg 1,030 mg PO DAILY 05/06/25 [History] Vitamin B-12(Unknown Dose) 1 tab PO DAILY 05/06/25 [History] Vitamin D3(Unknown Dose) 1 tab PO DAILY 05/06/25 [History] Acetaminophen Tab [Tylenol] 650 mg PO Q4HR PRN tab 05/09/25 [Rx] Losartan [Cozaar] 12.5 mg PO HS tab 05/09/25 [Rx] Metoprolol Succinate (ER) [Toprol XL] 12.5 mg PO DAILY #30 tab 05/09/25 [Rx] dexAMETHasone [Decadron] 6 mg PO DAILY #7 tablet 05/09/25 [Rx] Follow up Appointment(s)/Referral(s): Ervin Wray MD [STAFF PHYSICIAN] - 05/15/25 2:15 pm Rj Parra MD [Primary Care Provider] - 1-2 days Vj Schmidt MD [STAFF PHYSICIAN] - 1 Week Patient Instructions/Handouts: Coronavirus Disease 2019 (COVID-19) Activity/Diet/Wound Care/Special Instructions: Monitor blood pressure at home. Discharge Disposition: HOME SELF-CARE
--- NOTE | 2025-05-09 18:48 | P.PN ---
Subjective Progress Note Date: 05/09/25 Patient is an 85-year-old female with past medical history significant for asthma, hypertension, hyperlipidemia, diabetes mellitus, coronary artery disease with previous stent, previous splenectomy. Presented emergency department yesterday morning from her primary care provider's office. Reportedly, had low oxygen saturations at directed to the emergency department. Previously felt like she was going to "pass out". Also endorsing nasal congestion, dry cough, and lightheadedness. Patient was placed on supplemental oxygen on arrival. Workup in the ED including a positive PCR COVID test. D-dimer was elevated at 6.52, follow-up chest CT angiogram negative for filling defects, insistent with pulmonary embolism. Minimal bibasilar atelectasis without acute parenchymal process. Previously placed on IV Decadron. CBC unremarkable for leukocytosis. Hemoglobin 13. Platelets 211. CMP: Sodium 139, potassium 3.9, chloride 103, serum bicarb 31, BUN 20, creatinine 1.11, glucose 127. Lactic 1.3. Troponins less than 0.012 x 2. NT proBNP 275. Patient currently being evaluated in the emergency department, room 7. She is awake and alert and not in any distress. On 2 L/min nasal cannula. 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 Intermittent nausea. No emesis or diarrhea. Associated nasal congestion, dry cough without any sputum production and lightheadedness over the same timeframe. Denies chest pain. Denies leg swelling. Current vital signs: Heart rate 89 bpm, blood pressure 104/67 mmHg, SPO2 recorded at 94% on 2 L/min nasal cannula. On today's evaluation of 05/08/2025, the patient is being seen for a follow-up. No specific complaints. The patient is still requiring oxygen at 2 L/min nasal cannula. She drops below 90% on room air oxygen. For that reason, the patient was kept in the hospital for another 24 hours. Meanwhile, the patient remains on Decadron. She remains on tiotropium 2 puffs once a day and albuterol rescue inhaler 4 times a day and as needed. Remains on Decadron. Remains on Lovenox and the rest of the home medications will be resumed. The white cell count is 9.5 with a hemoglobin 9.9 and a platelet count of 209. Normal coagulation profile. Sodium is at 140 with a potassium level of 3.9 BUN is 33 and the creatinine is 1.17. On 05/09/2025, the patient's oxygenation is improved and the patient currently on room air oxygen with a pulse ox of 93%. No significant respiratory distress. The patient is calm and comfortable and ambulating. The white cell count Camila he was 12.6 and a platelet count of 228. Electrolytes are all within normal limits. BUN is 23 creatinine 0.8. The patient has no specific complaints. The patient will be discharged home to complete a 1 week course of Decadron 6 mg p.o. daily. Rest of the home medication will resume. No other complaints otherwise. No fever. No chills. No altered mentation. Objective - Vital Signs Vital signs: Vital Signs Temp 97.5 F L 05/09/25 08:00 Pulse 82 05/09/25 08:00 Resp 16 05/09/25 08:00 BP 126/66 05/09/25 08:00 Pulse Ox 94 L 05/09/25 08:00 FiO2 Intake & Output 05/08/25 05/09/25 05/09/25 18:59 06:59 18:59 Intake Total 118 Balance 118 Weight 75.75 kg 75 kg Intake: Oral 118 Other: Voiding Method Toilet Toilet # Voids 1 - Exam GENERAL EXAM: Alert, 85-year-old female, comfortable in no apparent distress. The patient is currently on room air oxygen. HEAD: Normocephalic and atraumatic EYES: Normal reaction of pupils, equal size. NOSE: Clear with pink turbinates. THROAT: No erythema or exudates. NECK: No masses, no JVD. CHEST: No chest wall deformity. LUNGS: Equal air entry with no crackles, wheeze, rhonchi or dullness. No conversational dyspnea or accessory muscle use.. CVS: S1 and S2 normal with no audible murmur, regular rhythm. No extra heart sounds ABDOMEN: No hepatosplenomegaly, active bowel sounds, no guarding or rigidity. SPINE: No scoliosis or deformity SKIN: No rashes. Multiple nodules, nonpainful, noted on the right lower extremity not excluding ventral foot CENTRAL NERVOUS SYSTEM: No focal deficits, tone is normal in all 4 extremities. EXTREMITIES: There is no peripheral edema, clubbing, or cyanosis. Peripheral pulses are intact. - Labs CBC & Chem 7: 05/09/25 08:56 05/09/25 08:56 Labs: Abnormal Lab Results - Last 24 Hours (Table) 05/08/25 05/08/25 05/08/25 Range/Units 12:17 16:48 20:40 WBC (4.50-10.00) 10*3/uL RBC (4.10-5.20) 10*6/uL MCV (80.0-97.0) fL Eosinophils # (0.04-0.35) 10*3/uL PT (10.0-12.5) sec D-Dimer (<0.60) mg/L FEU BUN (7-17) mg/dL Glucose (74-99) mg/dL POC Glucose (mg/dL) 156 H 192 H 238 H (70-110) mg/dL Total Protein (6.3-8.2) g/dL 05/09/25 05/09/25 05/09/25 Range/Units 06:03 08:56 08:56 WBC 10.24 H (4.50-10.00) 10*3/uL RBC 3.95 L (4.10-5.20) 10*6/uL MCV 99.7 H (80.0-97.0) fL Eosinophils # 0.00 L (0.04-0.35) 10*3/uL PT 9.9 L (10.0-12.5) sec D-Dimer 1.73 H (<0.60) mg/L FEU BUN (7-17) mg/dL Glucose (74-99) mg/dL POC Glucose (mg/dL) 136 H (70-110) mg/dL Total Protein (6.3-8.2) g/dL 05/09/25 05/09/25 Range/Units 08:56 11:33 WBC (4.50-10.00) 10*3/uL RBC (4.10-5.20) 10*6/uL MCV (80.0-97.0) fL Eosinophils # (0.04-0.35) 10*3/uL PT (10.0-12.5) sec D-Dimer (<0.60) mg/L FEU BUN 28 H (7-17) mg/dL Glucose 160 H (74-99) mg/dL POC Glucose (mg/dL) 162 H (70-110) mg/dL Total Protein 6.0 L (6.3-8.2) g/dL Assessment and Plan Assessment: Acute COVID-19 infection, clinically stable improving Acute asthma exacerbation, secondary to above, improving Acute hypoxemic respiratory failure, secondary to above; chest CT angiogram does not show any evidence of pulmonary embolism. Minimal bibasilar atelectasis without acute parenchymal process. The patient has recovered and oxygenation has normalized and the room air pulse ox is 94% Hypertension History of hyperlipidemia Diabetes mellitus type 2 Coronary artery disease with previous PCI/stent to the left circumflex History of previous splenectomy History of severe obstructive sleep apnea Obesity, BMI 34.9 kg/m Plan: Overall condition is stable. Oxygenation is improved and the patient has no need for home O2 Continue supportive care Continue albuterol nebs and Spiriva Complete the course of Decadron outpatient basis 6 mg for total of 1 week Robitussin DM added for antitussive Resume home medications. Discharge home today.
== END 2025-05-09 13:18 | disposition home or self-care (01) | DRG 177 ==
LOC: EC 11:45 → 3SCARD 18:47
PROVIDERS: ADMIT Student in an Organized Health Care Education/Training Program; ATTEND Student in an Organized Health Care Education/Training Program
DX: U07.1 COVID-19 (principal); J96.01 Acute respiratory failure with hypoxia; I25.5 Ischemic cardiomyopathy; J45.901 Unspecified asthma with (acute) exacerbation; E11.22 Type 2 diabetes mellitus with diabetic chronic kidney disease; N18.31 Chronic kidney disease, stage 3a; E66.9 Obesity, unspecified; I12.9 Hypertensive chronic kidney disease with stage 1 through stage 4 chronic kidney disease, or unspecified chronic kidney disease; K76.0 Fatty (change of) liver, not elsewhere classified; Q85.00 Neurofibromatosis, unspecified; Z68.34 Body mass index [BMI] 34.0-34.9, adult; K21.9 Gastro-esophageal reflux disease without esophagitis; M10.9 Gout, unspecified; I25.82 Chronic total occlusion of coronary artery; E78.5 Hyperlipidemia, unspecified; L40.9 Psoriasis, unspecified; F41.9 Anxiety disorder, unspecified; K22.89 Other specified disease of esophagus; G47.33 Obstructive sleep apnea (adult) (pediatric); I25.10 Atherosclerotic heart disease of native coronary artery without angina pectoris; I25.2 Old myocardial infarction; Z79.02 Long term (current) use of antithrombotics/antiplatelets; Z79.82 Long term (current) use of aspirin; Z79.84 Long term (current) use of oral hypoglycemic drugs; Z79.899 Other long term (current) drug therapy; Z95.5 Presence of coronary angioplasty implant and graft; Z90.81 Acquired absence of spleen; Z90.710 Acquired absence of both cervix and uterus; Z90.79 Acquired absence of other genital organ(s); Z90.722 Acquired absence of ovaries, bilateral
CPT/HCPCS: 36415; 71046; 71275; 80048; 80053; 82728; 83036; 83605; 83615; 83735; 83880; 84484; 85025; 85027; 85379; 85384; 85610; 85730; 86140; 87636; 93005; 94640; 94760; 96361; 96372; 96374; 96375; 96376; 99285

== ENCOUNTER 2025-05-27 19:37 | Outpatient (CLI) | payer MEDICARE ==
--- NOTE | 2025-06-04 12:24 | P.PCN ---
Description of Procedure: CLINICAL: Titration with positive air pressure has been done for correction of respiratory abnormalities during sleep. DESCRIPTION OF PROCEDURE: The standard montage for clinical polysomnography included the electroencephalogram, the electrocardiogram, the mentalis surface electromyography and Lead II cardiography. The respiratory battery consisted of measurements of nasal /buccal air flow, pressure transducer measurements from the nose, thoracic and /or abdominal effort and intercostal surface electromyography. Video monitoring has been done to check for any parasomnia events. Nocturnal oxyhemoglobin saturations were obtained by finger oximetry. Step-rossi titration with positive airway pressure was utilized to control respiratory events. Raw data of sleep recording has been reviewed and is adequate. RESULTS: Sleep efficiency was extremely short 51.2%. Latency to sleep onset was normal 9.0 minutes.]. Sleep architecture showed stage N1 was increased to 11.9%, Delta sleep was absent 0%, REM sleep normal at 20.1%. Heart rate was minimum 53 BPM, maximum 69 BPM, average 58 BPM. EMG showed 10.1 periodic limb movements per hour with 0.8 micriarousals per hour. PAP titration have been done with CPAP up to the pressure 15 cm H2O. patient continues to have some oxygen desaturation and oxygen supplement was added 2 L/min. The best results were at the pressure 10 cm H2O with 2 L/min oxygen supplement. Apnea hypopnea index reduced to 2.1. IMPRESSION: 1. 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 2. No significant periodic limb movements have been documented. Please see other impressions from consultation. PLAN: 1. The patient will have treatment with positive air pressure equipment with the level of pressure AutoPap 5-14 cm H2O with 2 L/min oxygen supplement and should use it every night for the whole night. 2. Watching and losing weight. 3. Sleep hygiene with regular time in bed for at least 8 hours. 4. No driving if feeling any sleepiness. 5. I will see the patient for follow up visit to explain the results of the test, recommendations, check compliance with treatment and make any necessary adjustment related to mask fitting, pressure and humidification. Thank you very much for allowing me to participate in the management of your patient. Sincerely, Josafat Brown MD, PhD, FAASM Diplomat of [employer] of [employer] [facility] [place] cc: Rj Parra MD
== END 2025-05-28 06:15 | disposition home or self-care (01) ==
LOC: 3 N SLEEP 19:37
PROVIDERS: ATTEND Internal Medicine
DX: G47.33 Obstructive sleep apnea (adult) (pediatric) (principal); Z99.89 Dependence on other enabling machines and devices; Z91.048 Other nonmedicinal substance allergy status
CPT/HCPCS: 95811

== ENCOUNTER → 2025-05-29 | Outpatient (CLI) | payer MEDICARE ==
[2025-05-29 15:14] LABS: HCT 38.5 % (37.2-46.3); HGB 12.0 g/dL (12.0-15.0); MCH 31.6 pg (27.0-32.0); MCHC 31.2 g/dL (32.0-37.0); MCV 101.3 FL (80.0-97.0); NRBC Per 100 WBC 0 X 10*3/uL (0.00-0.01); Platelet Count 237 X 10*3/uL (140-440); RBC 3.80 X 10*6/uL (4.10-5.20); RDW 14.6 % (11.5-14.5); WBC 6.66 X 10*3/uL (4.50-10.00)
[2025-05-29 15:20] LABS: NT-Pro-B-Type Natriuretic Pept 204 pg/mL (0-450)
[2025-05-29 15:28] LABS: ALT 19 U/L (8-44); AST 23 U/L (13-35); Albumin 4.0 g/dL (3.8-4.9); Albumin/Globulin Ratio 2.35 Ratio (1.60-3.17); Alkaline Phosphatase 101 U/L (41-126); Anion Gap 10.80 mmol/L (4.00-12.00); BUN/Creat Ratio 17.88 Ratio (12.00-20.00); Blood Urea Nitrogen 14.3 mg/dL (9.0-27.0); C Reactive Protein, High Sens 1.260 mg/L (0.000-3.000); Calcium 9.2 mg/dL (8.7-10.3); Carbon Dioxide 27.2 mmol/L (21.6-31.8); Chloride 110 mmol/L (96-109); Cholesterol 127.00 mg/dL (0.00-200.00); Globulin 1.7 g/dL (1.6-3.3); Glucose 108 mg/dL (70-110); HDL Cholesterol 56.90 mg/dL (40.00-60.00); LDL Cholesterol,Calculated 52.0 mg/dL (0.0-131.0); Potassium 4.0 mmol/L (3.5-5.5); Sodium 148 mmol/L (135-145); Total Protein 5.7 g/dL (6.2-8.2); Triglycerides 90.40 mg/dL (0.00-149.00); VLDL Calculation 18.08 mg/dL (5.00-40.00)
== END | disposition home or self-care (01) ==
LOC: LABWHC1 09:33
PROVIDERS: ATTEND Student in an Organized Health Care Education/Training Program
DX: Z13.6 Encounter for screening for cardiovascular disorders (principal); D72.9 Disorder of white blood cells, unspecified; E11.9 Type 2 diabetes mellitus without complications; I50.9 Heart failure, unspecified; E78.5 Hyperlipidemia, unspecified; E03.9 Hypothyroidism, unspecified; R79.89 Other specified abnormal findings of blood chemistry
CPT/HCPCS: 36415; 80053; 80061; 83036; 83880; 84443; 85027; 86141